=== PATIENT | female | born 1945 | race Two or more races ===

== ENCOUNTER 2017-03-10 12:41 | Emergency (ER) | payer OTHER ==
[~2017-03-10] VITALS: Ht 152.4 cm; Wt 74.4 kg
[~2017-03-10 12:41] MED LIST: ALEN70TA55 PO; AMLO5TAB2 PO; ASPI81TA27 PO; DULO30CA2 PO; GABA-497 PO; GLIP-115 PO; LEV100T OR; LOS50T PO; METF-370 PO; PANT40TA2 PO; [UNRECOGNIZED DRUG - CODE] PO
[2017-03-10 12:51] VITALS: BP 125/66
[2017-03-10 13:56] LABS: Basophils # (auto) 0.1 uL; Basophils % (auto) 0.7 % (0.0-2.0); Eosinophils # (auto) 0.4 uL; Eosinophils % (auto) 2.8 % (0.0-7.0); Hematocrit 39.6 % (36.0-46.0); Hemoglobin 13.4 g/dL (12.2-16.2); Lymphocytes # (auto) 3.8 uL; Lymphocytes % (auto) 27.8 % (10.0-50.0); Mean Corpuscular Hemoglobin 30.4 pg (28.0-32.0); Mean Corpuscular Hgb Conc. 33.9 g/dL (32.0-36.0); Mean Corpuscular Volume 89.7 fL (80.0-100.0); Mean Platelet Volume 7.9 fL (6.9-10.8); Monocytes # (auto) 0.9 uL; Monocytes % (auto) 6.3 % (0.0-12.0); Neutrophils # (auto) 8.5 uL; Neutrophils % (auto) 62.4 % (37.0-80.0); Nucleated Red Blood Cells % 0.1 %; Platelet Count (auto) 358 10^3/uL (140-450); Red Cell Distribution Width 14.1 % (11.8-14.3); White Blood Cell 13.6 10^3/uL (4.4-10.8)
[2017-03-10 14:09] LABS: Albumin 3.9 g/dL (3.4-5.0); Anion Gap 11 (5-15); BUN/Creatinine Ratio 14.7; Blood Urea Nitrogen 19 mg/dL (7-18); Calcium 8.6 mg/dL (8.5-10.1); Carbon Dioxide 24 mmol/L (21-32); Chloride 103 mmol/L (98-107); GFR African American 52 mL/min; GFR Non-African American 43 mL/min; Glucose 144 mg/dL (74-106); Potassium 4.3 mmol/L (3.5-5.1); Sodium 138 mmol/L (136-145)
[2017-03-10 14:14] LABS: Alkaline Phosphatase 76 U/L (45-117); Aspartate Aminotransferase 13 U/L (15-37); Bilirubin, Total 0.4 mg/dL (0.2-1.0); Total Protein 7.7 g/dL (6.4-8.2)
== END 2017-03-10 19:23 | disposition left against medical advice (07) ==
LOC: ER 12:41
DX: R07.89 Other chest pain (principal); Z53.21 Procedure and treatment not carried out due to patient leaving prior to being seen by health care provider
CPT/HCPCS: 36415; 71020; 80053; 84484; 85025; 93005

== ENCOUNTER 2017-11-11 07:32 | Inpatient (IN) | payer OTHER ==
[~2017-11-11] VITALS: Ht 149.9 cm; Wt 74.7 kg
[~2017-11-11 07:32] MED LIST changes: -ALEN70TA55 PO; -AMLO5TAB2 PO; -ASPI81TA27 PO; -DULO30CA2 PO; -GABA-497 PO; +GABA300C10 PO
[2017-11-11] MEDS ORDERED: LIDOCAINE 2%HCL (LOCAL ANESTH.) INJ 20ML MDV ONE (15:08)
[2017-11-11] MEDS ORDERED: IODIXANOL 320MG/ML 100ML BTL IV ONE (15:08)
[2017-11-11] MEDS ORDERED: methylPREDNISolone SOD SUCC 125 MG/2 ML VL ONE (15:16)
[2017-11-11] MEDS ORDERED: fentaNYL CITRATE 100 MCG/2 ML VL ONE (15:17)
[2017-11-11] MEDS ORDERED: ANGIOMAX 250 MG VIAL IV ONE (15:17)
[2017-11-11] MEDS ORDERED: MIDAZOLAM HCL 1MG/1ML-2 ML VIAL ONE (15:17)
[2017-11-11] MEDS ORDERED: diphenhdrAMINE HCL 50 MG/1 ML VL ONE (15:17)
[2017-11-11] MEDS ORDERED: FAMOTIDINE (10MG/ML) 2ML VL IV ONE (15:39)
[2017-11-11] MEDS ORDERED: EPINEPHrine HCL 1 MG/1 ML AMP ONE (15:43)
[2017-11-11] MEDS ORDERED: CLOPIDOGREL 300 MG TAB ONE (16:12)
[2017-11-11] MEDS ORDERED: ZOLPIDEM TARTRATE 5 MG TAB PO PRN ×2 (16:45→18:15)
[2017-11-11] MEDS ORDERED: ACETAMINOPHEN 500 MG TAB PO PRN (18:15)
[2017-11-11] MEDS ORDERED: LORazepam 0.5 MG TAB PO PRN (18:15)
[2017-11-11] MEDS ORDERED: HYDROcodone-ACET 5/325MG TAB PO PRN (18:15)
[2017-11-11] MEDS ORDERED: ONDANSETRON HCL 4 MG/2 ML VIAL IV PRN (18:15)
[2017-11-11] MEDS ORDERED: DEXTROSE (50%) 50ML SYRG IV PRN (18:30)
[2017-11-11 20:00] VITALS: BP 145/72
[2017-11-11] MEDS: METOPROLOL TARTRATE 50 MG TAB PO SCH (21:48)
[2017-11-11] MEDS: SODIUM CHLOR 0.9% PF (SALINE LOCK) 10ML VIAL/SYR IV SCH (21:49)
[2017-11-11] MEDS: HCTZ 25 MG TAB PO SCH (21:49)
[2017-11-11 22:00] VITALS: BP 145/72
[2017-11-11] MEDS ORDERED: ATORVASTATIN 20 MG TAB PO SCH (22:00)
[2017-11-11] MEDS ORDERED: InsuLIN REG 1unit/0.01ml Soln (100units/ml) SC SCH (22:00)
[2017-11-11] MEDS: ACCU-CHEK COMFORT CURVE STRIP VI SCH (22:00)
[2017-11-11] MEDS ORDERED: [UNRECOGNIZED DRUG - MIXTURE] PO SCH (22:00)
[2017-11-12] MEDS ORDERED: SODIUM CHLORIDE 0.9% 500 ML IV ONE (02:30)
[2017-11-12 05:00] VITALS: BP 145/64
[2017-11-12] MEDS: glipiZIDE 5 MG TAB PO SCH ×2 (06:26→06:52)
[2017-11-12] MEDS: SODIUM CHLOR 0.9% PF (SALINE LOCK) 10ML VIAL/SYR IV SCH ×2 (06:26→14:00)
[2017-11-12] MEDS: ACCU-CHEK COMFORT CURVE STRIP VI SCH ×2 (06:27→12:00)
[2017-11-12] MEDS: InsuLIN REG 1unit/0.01ml Soln (100units/ml) SC SCH ×2 (06:48→11:59)
[2017-11-12] MEDS ORDERED: LEVOTHYROXINE SODIUM 88 MCG TAB PO SCH (07:00)
[2017-11-12 09:00] VITALS: BP 145/74
[2017-11-12] MEDS: HCTZ 25 MG TAB PO SCH (09:44)
[2017-11-12] MEDS: METOPROLOL TARTRATE 50 MG TAB PO SCH (09:45)
[2017-11-12] MEDS ORDERED: PANTOPRAZOLE 40 MG TAB PO SCH (10:00)
[2017-11-12] MEDS ORDERED: GABAPENTIN 300 MG CAP PO SCH (10:00)
[2017-11-12] MEDS ORDERED: LOSARTAN POTASSIUM 50 MG TAB PO SCH (10:00)
[2017-11-12 13:00] VITALS: BP 151/77
[2017-11-18] MEDS ORDERED: [UNRECOGNIZED DRUG - CODE] (07:15)
[2017-11-18] MEDS ORDERED: CLOP75TA41 (07:15)
== END 2017-11-12 14:30 | disposition home or self-care (01) | DRG 254 ==
LOC: CATH 07:32 → WEST WING 18:24
PROVIDERS: ADMIT Internal Medicine; ATTEND Internal Medicine
PROC: 047C3DZ Dilation of Right Common Iliac Artery with Intraluminal Device, Percutaneous Approach (ICD-10-PCS; principal; 2017-11-11)
DX: E11.51 Type 2 diabetes mellitus with diabetic peripheral angiopathy without gangrene (principal); E66.9 Obesity, unspecified; J44.9 Chronic obstructive pulmonary disease, unspecified; N18.3 Chronic kidney disease, stage 3 (moderate); I12.9 Hypertensive chronic kidney disease with stage 1 through stage 4 chronic kidney disease, or unspecified chronic kidney disease; I70.201 Unspecified atherosclerosis of native arteries of extremities, right leg; E11.22 Type 2 diabetes mellitus with diabetic chronic kidney disease; Z79.02 Long term (current) use of antithrombotics/antiplatelets; Z79.82 Long term (current) use of aspirin; Z87.891 Personal history of nicotine dependence; Z68.33 Body mass index [BMI] 33.0-33.9, adult; Z91.041 Radiographic dye allergy status; Z91.013 Allergy to seafood; Z91.018 Allergy to other foods
CPT/HCPCS: 82962; 99152; J0171; J1815; J2250; J3490; Q9967

== ENCOUNTER 2018-01-12 17:09 | Inpatient (IN) | payer OTHER ==
[~2018-01-12] VITALS: Ht 152.4 cm; Wt 77.2 kg
[~2018-01-12 17:09] MED LIST changes: +ASPI-325; +CLOP75TA41
[2018-01-12 17:56] LABS: Basophils # (auto) 0.1 uL; Basophils % (auto) 0.6 % (0.0-2.0); Eosinophils # (auto) 0.6 uL; Eosinophils % (auto) 4.5 % (0.0-7.0); Hematocrit 38.2 % (36.0-46.0); Lymphocytes # (auto) 4.2 uL; Lymphocytes % (auto) 33.9 % (10.0-50.0); Mean Corpuscular Hemoglobin 29.9 pg (28.0-32.0); Monocytes # (auto) 0.9 uL; Monocytes % (auto) 6.9 % (0.0-12.0); Neutrophils # (auto) 6.7 uL; Neutrophils % (auto) 54.1 % (37.0-80.0); Nucleated Red Blood Cells % 0.1 %; Platelet Count (auto) 328 10^3/uL (140-450); Red Blood Cells 4.34 10^6/uL (4.0-5.20); Red Cell Distribution Width 14.4 % (11.8-14.3); White Blood Cell 12.5 10^3/uL (4.4-10.8)
[2018-01-12 18:19] LABS: Albumin 4.1 g/dL (3.4-5.0); BUN/Creatinine Ratio 12.9; Bilirubin, Total 0.3 mg/dL (0.2-1.0); Calcium 9.4 mg/dL (8.5-10.1); Potassium 3.9 mmol/L (3.5-5.1); Total Protein 8.2 g/dL (6.4-8.2)
[2018-01-12 18:43] LABS: INR 0.88 (0.9-1.15); Partial Thromboplastin Time 28.3 sec (23.78-33.04); Prothrombin Time 9.5 sec (9.27-12.13)
[2018-01-12] MEDS ORDERED: cefTRIAXone 1GM/10ml IVPUSH 10 ML IV ONE (20:15)
[2018-01-12 21:00] VITALS: BP 167/74
[2018-01-12] MEDS ORDERED: TEMAZEPAM 15 MG CAP PO PRN (21:00)
[2018-01-12] MEDS ORDERED: HYDROcodone-ACET 5/325MG TAB PO PRN (21:00)
[2018-01-12] MEDS ORDERED: ACETAMINOPHEN 325 MG TAB PO PRN (21:00)
[2018-01-12] MEDS ORDERED: DOCUSATE SOD 100 MG CAP PO PRN (21:00)
[2018-01-12] MEDS ORDERED: ONDANSETRON HCL 4 MG/2 ML VIAL IV PRN (21:00)
[2018-01-12] MEDS ORDERED: CINN500C7 PO (22:42)
[2018-01-12] MEDS ORDERED: POTA1080 PO (22:42)
[2018-01-12] MEDS ORDERED: OMEGCAP2 PO (22:42)
[2018-01-12] MEDS ORDERED: MULTCAP45 PO (22:42)
[2018-01-12] MEDS: CLINDAMYCIN 600MG IV 50 ML IV SCH (23:29)
[2018-01-13 04:56] VITALS: BP 161/73
[2018-01-13] MEDS: LEVOTHYROXINE SODIUM 88 MCG TAB PO SCH (06:14)
[2018-01-13] MEDS: CLINDAMYCIN 600MG IV 50 ML IV SCH ×3 (06:14→21:16)
[2018-01-13 07:58] LABS: Basophils # (auto) 0.1 uL; Basophils % (auto) 0.6 % (0.0-2.0); Eosinophils # (auto) 0.3 uL; Eosinophils % (auto) 2.8 % (0.0-7.0); Hematocrit 37.9 % (36.0-46.0); Hemoglobin 12.3 g/dL (12.2-16.2); Lymphocytes # (auto) 3.2 uL; Lymphocytes % (auto) 28.2 % (10.0-50.0); Mean Corpuscular Hemoglobin 29.2 pg (28.0-32.0); Mean Corpuscular Hgb Conc. 32.5 g/dL (32.0-36.0); Monocytes # (auto) 0.7 uL; Monocytes % (auto) 6.3 % (0.0-12.0); Neutrophils # (auto) 7.1 uL; Neutrophils % (auto) 62.1 % (37.0-80.0); Nucleated Red Blood Cells % 0.1 %; Platelet Count (auto) 288 10^3/uL (140-450); Red Blood Cells 4.22 10^6/uL (4.0-5.20); Red Cell Distribution Width 14.5 % (11.8-14.3); White Blood Cell 11.4 10^3/uL (4.4-10.8)
[2018-01-13 07:59] LABS: Albumin 3.5 g/dL (3.4-5.0); BUN/Creatinine Ratio 11.4; Bilirubin, Total 0.2 mg/dL (0.2-1.0); Calcium 9.1 mg/dL (8.5-10.1); Potassium 4.3 mmol/L (3.5-5.1); Total Protein 7.3 g/dL (6.4-8.2)
[2018-01-13 08:45] VITALS: BP 150/65
[2018-01-13] MEDS: cefTRIAXone 1GM/10ml IVPUSH 10 ML IV SCH (09:42)
[2018-01-13] MEDS: ENOXAPARIN SOD 40 MG/0.4 ML SYRINGE SC SCH (09:42)
[2018-01-13] MEDS: GABAPENTIN 300 MG CAP PO SCH (09:43)
[2018-01-13] MEDS: LOSARTAN POTASSIUM 50 MG TAB PO SCH (09:43)
[2018-01-13] MEDS: PANTOPRAZOLE 40 MG TAB PO SCH (09:43)
[2018-01-13] MEDS: CLOPIDOGREL BISULFATE 75 MG TAB PO SCH (09:43)
[2018-01-13 12:59] VITALS: BP 143/67
[2018-01-13 17:21] VITALS: BP 154/76
[2018-01-13 22:30] VITALS: BP 150/79
[2018-01-14 05:31] VITALS: BP 147/67
[2018-01-14] MEDS: CLINDAMYCIN 600MG IV 50 ML IV SCH ×3 (06:12→21:09)
[2018-01-14] MEDS: LEVOTHYROXINE SODIUM 88 MCG TAB PO SCH (06:12)
[2018-01-14 07:00] LABS: Basophils # (auto) 0.1 uL; Basophils % (auto) 0.9 % (0.0-2.0); Eosinophils # (auto) 0.3 uL; Eosinophils % (auto) 2.8 % (0.0-7.0); Hemoglobin 13.4 g/dL (12.2-16.2); Lymphocytes # (auto) 3.5 uL; Lymphocytes % (auto) 29.3 % (10.0-50.0); Mean Corpuscular Hemoglobin 29.6 pg (28.0-32.0); Mean Corpuscular Hgb Conc. 33.5 g/dL (32.0-36.0); Mean Corpuscular Volume 88.3 fL (80.0-100.0); Monocytes # (auto) 0.7 uL; Monocytes % (auto) 6.2 % (0.0-12.0); Neutrophils # (auto) 7.2 uL; Neutrophils % (auto) 60.8 % (37.0-80.0); Nucleated Red Blood Cells % 0.1 %; Platelet Count (auto) 336 10^3/uL (140-450); Red Blood Cells 4.53 10^6/uL (4.0-5.20); Red Cell Distribution Width 14.7 % (11.8-14.3); White Blood Cell 11.9 10^3/uL (4.4-10.8)
[2018-01-14 08:44] VITALS: BP 159/67
[2018-01-14] MEDS: GABAPENTIN 300 MG CAP PO SCH (09:39)
[2018-01-14] MEDS: CLOPIDOGREL BISULFATE 75 MG TAB PO SCH (09:39)
[2018-01-14] MEDS: cefTRIAXone 1GM/10ml IVPUSH 10 ML IV SCH (09:39)
[2018-01-14] MEDS: LOSARTAN POTASSIUM 50 MG TAB PO SCH (09:40)
[2018-01-14] MEDS: PANTOPRAZOLE 40 MG TAB PO SCH (09:40)
[2018-01-14] MEDS: ENOXAPARIN SOD 40 MG/0.4 ML SYRINGE SC SCH (09:41)
[2018-01-14 13:00] VITALS: BP 160/82
[2018-01-14 17:13] VITALS: BP 157/68
[2018-01-14 21:46] VITALS: BP 149/75
[2018-01-15 05:00] VITALS: BP_SYST 109; BP_SYST 140; BP_DIAS 59; BP_DIAS 73
[2018-01-15] MEDS: CLINDAMYCIN 600MG IV 50 ML IV SCH ×3 (05:24→22:34)
[2018-01-15] MEDS: LEVOTHYROXINE SODIUM 88 MCG TAB PO SCH (06:22)
[2018-01-15 09:00] VITALS: BP 152/76
[2018-01-15] MEDS: cefTRIAXone 1GM/10ml IVPUSH 10 ML IV SCH (09:00)
[2018-01-15] MEDS: ENOXAPARIN SOD 40 MG/0.4 ML SYRINGE SC SCH (10:00)
[2018-01-15] MEDS: LOSARTAN POTASSIUM 50 MG TAB PO SCH (10:26)
[2018-01-15] MEDS: GABAPENTIN 300 MG CAP PO SCH (10:27)
[2018-01-15] MEDS: PANTOPRAZOLE 40 MG TAB PO SCH (10:27)
[2018-01-15] MEDS: CLOPIDOGREL BISULFATE 75 MG TAB PO SCH (10:28)
[2018-01-15] MEDS ORDERED: IODIXANOL 320MG/ML 100ML BTL IV ONE (12:11)
[2018-01-15] MEDS ORDERED: LIDOCAINE 2% (LOCAL ANESTH.) PF 5ml SDV ONE (12:11)
[2018-01-15 13:00] VITALS: BP 139/80
[2018-01-15] MEDS ORDERED: methylPREDNISolone SOD SUCC 125 MG/2 ML VL ONE (13:33)
[2018-01-15] MEDS ORDERED: MIDAZOLAM HCL 1MG/1ML-2 ML VIAL ONE (13:34)
[2018-01-15] MEDS ORDERED: fentaNYL CITRATE 100 MCG/2 ML VL ONE (13:34)
[2018-01-15] MEDS ORDERED: diphenhdrAMINE HCL 50 MG/1 ML VL ONE (13:34)
[2018-01-15] MEDS ORDERED: ANGIOMAX 250 MG VIAL IV ONE (13:34)
[2018-01-15] MEDS ORDERED: SODIUM CHL 0.9% 0 ML ONE (13:35)
[2018-01-15] MEDS ORDERED: FAMOTIDINE (10MG/ML) 2ML VL IV ONE (13:38)
[2018-01-15] MEDS ORDERED: DEXTROSE (50%) 50ML SYRG IV PRN (14:30)
[2018-01-15 17:00] VITALS: BP 125/81
[2018-01-15] MEDS: InsuLIN REG 1unit/0.01ml Soln (100units/ml) SC SCH ×2 (17:00→22:00)
[2018-01-15] MEDS: ACCU-CHEK COMFORT CURVE STRIP VI SCH ×2 (17:00→22:00)
[2018-01-15 22:00] VITALS: BP 151/78
[2018-01-16 04:41] VITALS: BP 156/74
[2018-01-16] MEDS: InsuLIN REG 1unit/0.01ml Soln (100units/ml) SC SCH (06:49)
[2018-01-16] MEDS: LEVOTHYROXINE SODIUM 88 MCG TAB PO SCH (06:49)
[2018-01-16] MEDS: CLINDAMYCIN 600MG IV 50 ML IV SCH (06:49)
[2018-01-16] MEDS: ACCU-CHEK COMFORT CURVE STRIP VI SCH (07:09)
[2018-01-16 09:00] VITALS: BP 164/77
[2018-01-16] MEDS: cefTRIAXone 1GM/10ml IVPUSH 10 ML IV SCH (09:00)
[2018-01-16] MEDS: GABAPENTIN 300 MG CAP PO SCH (10:00)
[2018-01-16] MEDS: CLOPIDOGREL BISULFATE 75 MG TAB PO SCH (10:00)
[2018-01-16] MEDS: LOSARTAN POTASSIUM 50 MG TAB PO SCH (10:00)
[2018-01-16] MEDS: PANTOPRAZOLE 40 MG TAB PO SCH (10:00)
[2018-01-16] MEDS: ENOXAPARIN SOD 40 MG/0.4 ML SYRINGE SC SCH (10:00)
[2018-01-16 10:56] VITALS: BP 152/76
== END 2018-01-16 12:00 | disposition home or self-care (01) | DRG 300 ==
LOC: ER 17:13 → OVERFLOW 17:14 → WEST WING 22:40
PROVIDERS: ADMIT Nurse Practitioner; ATTEND Family Medicine
PROC: B41G1ZZ Fluoroscopy of Left Lower Extremity Arteries using Low Osmolar Contrast (ICD-10-PCS; principal; 2018-01-15)
PROC: B41F1ZZ Fluoroscopy of Right Lower Extremity Arteries using Low Osmolar Contrast (ICD-10-PCS; 2018-01-15)
DX: I70.201 Unspecified atherosclerosis of native arteries of extremities, right leg (principal); L03.115 Cellulitis of right lower limb; E66.9 Obesity, unspecified; E11.51 Type 2 diabetes mellitus with diabetic peripheral angiopathy without gangrene; I10 Essential (primary) hypertension; K21.9 Gastro-esophageal reflux disease without esophagitis; Z82.49 Family history of ischemic heart disease and other diseases of the circulatory system; Z83.3 Family history of diabetes mellitus; Z87.891 Personal history of nicotine dependence; Z88.8 Allergy status to other drugs, medicaments and biological substances; Z91.013 Allergy to seafood; Z91.041 Radiographic dye allergy status; Z79.899 Other long term (current) drug therapy
CPT/HCPCS: 36415; 71045; 75716; 80053; 82962; 83605; 85025; 85610; 85730; 86850; 86900; 86901; 87040; 87081; 93926; 93970; 94761; 96372; 96374; 96376; 99152; A6257; J0696; J1815; J2001; J2250; J3490; Q9967

== ENCOUNTER 2018-01-18 21:16 | Emergency (ER) | payer OTHER ==
[~2018-01-18] VITALS: Ht 152.4 cm; Wt 73.9 kg
[~2018-01-18 21:16] MED LIST changes: +CINN500C7 PO; +MULTCAP45 PO; +OMEGCAP2 PO; +POTA1080 PO
[2018-01-18 21:36] VITALS: BP 173/60
== END 2018-01-19 04:11 | disposition home or self-care (01) ==
LOC: ER 21:17
DX: K21.9 Gastro-esophageal reflux disease without esophagitis (principal); T50.905A Adverse effect of unspecified drugs, medicaments and biological substances, initial encounter; Y92.89 Other specified places as the place of occurrence of the external cause; I10 Essential (primary) hypertension; E11.9 Type 2 diabetes mellitus without complications; Z91.013 Allergy to seafood; Z91.041 Radiographic dye allergy status
CPT/HCPCS: 93005

== ENCOUNTER → 2018-03-05 | Outpatient (CLI) | payer OTHER ==
[2018-03-05 08:50] LABS: Basophils # (auto) 0.1 uL; Basophils % (auto) 0.5 % (0.0-2.0); Eosinophils # (auto) 0.3 uL; Eosinophils % (auto) 2.6 % (0.0-7.0); Hematocrit 39.3 % (36.0-46.0); Lymphocytes # (auto) 3.4 uL; Lymphocytes % (auto) 33.7 % (10.0-50.0); Mean Corpuscular Hemoglobin 29.5 pg (28.0-32.0); Mean Corpuscular Hgb Conc. 33.2 g/dL (32.0-36.0); Mean Corpuscular Volume 88.8 fL (80.0-100.0); Monocytes # (auto) 0.6 uL; Monocytes % (auto) 6.3 % (0.0-12.0); Neutrophils # (auto) 5.7 uL; Neutrophils % (auto) 56.9 % (37.0-80.0); Platelet Count (auto) 302 10^3/uL (140-450); Red Blood Cells 4.43 10^6/uL (4.0-5.20); Red Cell Distribution Width 14.8 % (11.8-14.3)
[2018-03-05 08:53] LABS: Urine Bacteria FEW /hpf (None Seen); Urine Blood Negative /uL (Negative); Urine Specific Gravity 1.011 (1.001-1.035); Urine WBC 10 /hpf (0 - 5)
[2018-03-05 09:25] LABS: Alanine Aminotransferase 26 U/L (13-56); Albumin 3.5 g/dL (3.4-5.0); Alkaline Phosphatase 76 U/L (45-117); Aspartate Aminotransferase 14 U/L (15-37); BUN/Creatinine Ratio 17.3; Bilirubin, Total 0.6 mg/dL (0.2-1.0); Blood Urea Nitrogen 22 mg/dL (7-18); Calcium 9.5 mg/dL (8.5-10.1); Carbon Dioxide 27 mmol/L (21-32); Cholesterol 120 mg/dL (< 200); GFR African American 53 mL/min; GFR Non-African American 44 mL/min; HDL Cholesterol 38 mg/dL (40-59); LDL Cholesterol 64 mg/dL (< 100); Phosphorus 3.4 mg/dL (2.5-4.90); Total Protein 7.6 g/dL (6.4-8.2); Triglycerides 205 mg/dL (< 150); Uric Acid 7.8 mg/dL (2.6-6.0)
[2018-03-05 09:31] LABS: Anion Gap 6 (5-15); Chloride 100 mmol/L (98-107); Glucose 149 mg/dL (74-106); Potassium 5.1 mmol/L (3.5-5.1); Sodium 133 mmol/L (136-145)
[2018-03-08 13:33] LABS: Hepatitis B Surface Antibody Negative
[2018-03-08 13:51] LABS: Hepatitis A Total Antibody Negative
[2018-03-08 14:34] LABS: Hepatitis B Core Total AB Negative; Hepatitis B Surface Antigen Negative (Negative); Hepatitis C Antibody Negative (Negative)
== END | disposition home or self-care (01) ==
LOC: LAB 08:02
PROVIDERS: ATTEND Physician Assistant
DX: E78.5 Hyperlipidemia, unspecified (principal); E03.9 Hypothyroidism, unspecified; I12.9 Hypertensive chronic kidney disease with stage 1 through stage 4 chronic kidney disease, or unspecified chronic kidney disease; E11.22 Type 2 diabetes mellitus with diabetic chronic kidney disease; N18.3 Chronic kidney disease, stage 3 (moderate); E11.40 Type 2 diabetes mellitus with diabetic neuropathy, unspecified; I73.9 Peripheral vascular disease, unspecified
CPT/HCPCS: 36415; 80053; 80061; 80069; 81001; 82570; 83036; 84156; 84550; 85025; 86038; 86256; 86704; 86706; 86708; 86803; 87340

== ENCOUNTER → 2020-10-17 | Outpatient (CLI) | payer OTHER ==
[~2020-10-17] MED LIST changes: -CLOP75TA41; +CLOP75TA70; -GLIP-115 PO; +GLIP5TAB12 PO
== END | disposition home or self-care (01) ==
LOC: XYW 09:30
PROVIDERS: ATTEND Internal Medicine
DX: I08.2 Rheumatic disorders of both aortic and tricuspid valves (principal); I50.30 Unspecified diastolic (congestive) heart failure
CPT/HCPCS: 93306

== ENCOUNTER → 2020-11-08 | Outpatient (CLI) | payer OTHER ==
[2020-11-08 08:14] LABS: Basophils # (auto) 0.1 10 ^3/uL (0-0.2); Basophils % (auto) 0.7 % (0.0-2.0); Eosinophils # (auto) 0.3 10 ^3/uL (0-0.8); Eosinophils % (auto) 2.7 % (0.0-7.0); Hemoglobin 11.8 g/dL (12.2-16.2); Lymphocytes # (auto) 5.2 10 ^3/uL (0.4-5.4); Mean Corpuscular Hemoglobin 30.8 pg (28.0-32.0); Mean Corpuscular Hgb Conc. 33.9 g/dL (32.0-36.0); Mean Corpuscular Volume 90.9 fL (80.0-100.0); Monocytes # (auto) 0.6 10 ^3/uL (0-1.3); Monocytes % (auto) 5.4 % (0.0-12.0); Neutrophils # (auto) 4.9 10 ^3/uL (1.6-8.6); Neutrophils % (auto) 44.2 % (37.0-80.0); Nucleated Red Blood Cells % 0.1 %; Platelet Count (auto) 269 10^3/uL (140-450); Red Blood Cells 3.85 10^6/uL (4.0-5.20); White Blood Cell 11.1 10^3/uL (4.4-10.8)
[2020-11-08 08:18] LABS: Urine Bacteria NONE SEEN /hpf (None Seen); Urine Blood Negative /uL (Negative); Urine WBC 112 /hpf (0 - 5)
[2020-11-08 08:50] LABS: Potassium 4.4 mmol/L (3.5-5.1)
[2020-11-08 09:00] LABS: Albumin 3.4 g/dL (3.4-5.0); BUN/Creatinine Ratio 17.5; Bilirubin, Total 0.4 mg/dL (0.2-1.0); Total Protein 6.9 g/dL (6.4-8.2)
[2020-11-08 09:12] LABS: Free T4 (Free Thyroxine) 1.23 ng/dL (0.89-1.76)
[2020-11-08 09:13] LABS: T3 Total 0.84 ng/mL (0.60-1.81)
== END | disposition home or self-care (01) ==
LOC: LAB 07:11
PROVIDERS: ATTEND Internal Medicine
DX: E11.22 Type 2 diabetes mellitus with diabetic chronic kidney disease (principal); N18.30 Chronic kidney disease, stage 3 unspecified; E03.9 Hypothyroidism, unspecified
CPT/HCPCS: 36415; 80053; 80061; 81001; 82043; 82306; 82607; 83036; 84439; 84443; 84480; 85025

== ENCOUNTER → 2020-11-15 | Outpatient (CLI) | payer OTHER | END | disposition home or self-care (01) | LOC: LAB 14:45 | PROVIDERS: ATTEND Internal Medicine | DX: E11.22 Type 2 diabetes mellitus with diabetic chronic kidney disease (principal); N18.30 Chronic kidney disease, stage 3 unspecified | CPT/HCPCS: 82043 ==

== ENCOUNTER 2021-05-14 09:07 | Inpatient (IN) | payer OTHER ==
[~2021-05-14] VITALS: Ht 152.4 cm; Wt 63.5 kg
[~2021-05-14 09:07] MED LIST changes: -ASPI-325; +ASPI-325 PO; -CLOP75TA70; +CLOP75TA70 PO; -LEV100T OR; +LEV100T PO
[2021-05-14 10:40] LABS: Basophils # (auto) 0.1 10 ^3/uL (0-0.2); Basophils % (auto) 0.4 % (0.0-2.0); Eosinophils # (auto) 0 10 ^3/uL (0-0.8); Eosinophils % (auto) 0.1 % (0.0-7.0); Hematocrit 37.6 % (36.0-46.0); Hemoglobin 12.9 g/dL (12.2-16.2); Lymphocytes # (auto) 4.3 10 ^3/uL (0.4-5.4); Lymphocytes % (auto) 30.1 % (10.0-50.0); Mean Corpuscular Hemoglobin 30.4 pg (28.0-32.0); Mean Corpuscular Hgb Conc. 34.4 g/dL (32.0-36.0); Mean Corpuscular Volume 88.4 fL (80.0-100.0); Monocytes # (auto) 1.3 10 ^3/uL (0-1.3); Monocytes % (auto) 9.4 % (0.0-12.0); Neutrophils # (auto) 8.5 10 ^3/uL (1.6-8.6); Red Blood Cells 4.26 10^6/uL (4.0-5.20); Red Cell Distribution Width 13.9 % (11.8-14.3); White Blood Cell 14.2 10^3/uL (4.4-10.8)
[2021-05-14 11:09] LABS: Albumin 3.2 g/dL (3.4-5.0); Calcium 9.1 mg/dL (8.5-10.1); Potassium 5.2 mmol/L (3.5-5.1)
[2021-05-14 11:14] LABS: BUN/Creatinine Ratio 23.5; Bilirubin, Total 0.5 mg/dL (0.2-1.0); Total Protein 8.1 g/dL (6.4-8.2)
[2021-05-14] MEDS ORDERED: DEXTROSE 50% SYRINGE 50 ML IV ONE (11:40)
[2021-05-14] MEDS ORDERED: DEXTROSE (50%) 50ML SYRG IV ONE ×2 (12:00→13:45)
[2021-05-14] MEDS ORDERED: CALCIUM CHL 100MG/ML 1,000 MG in D5W 5% 100 ML IV ONE (13:45)
[2021-05-14] MEDS ORDERED: ALBUTEROL SULF 2.5 MG/0.5ML(0.5%) NEB SOLN NEB ONE (13:45)
[2021-05-14] MEDS ORDERED: NITROGLYCERIN 0.4 MG SL TAB SL PRN ×2 (13:45→19:30)
[2021-05-14] MEDS ORDERED: SODIUM ZIRCONIUM CYCL 10 GM PAK PO ONE (13:45)
[2021-05-14] MEDS ORDERED: D5W/LACTATED RINGERS 1,000 ML IV ONE (13:45)
[2021-05-14] MEDS ORDERED: MORPHINE SULFATE INJECTION 2 MG/ML SYRG IV PRN ×3 (13:45→19:30)
[2021-05-14] MEDS ORDERED: FUROSEMIDE 40 MG/4 ML VIAL IV ONE (13:45)
[2021-05-14] MEDS ORDERED: PSYL0.524 PO (15:43)
[2021-05-14] MEDS ORDERED: HYDR50TA15 PO (15:43)
[2021-05-14] MEDS ORDERED: AML5T PO (15:43)
[2021-05-14] MEDS ORDERED: LOSA-39 PO (15:46)
[2021-05-14] MEDS ORDERED: GABA-339 PO (15:46)
[2021-05-14] MEDS ORDERED: HYDR25TA5 PO (15:47)
[2021-05-14] MEDS ORDERED: ALEN70TA74 PO (15:47)
[2021-05-14] MEDS ORDERED: ASPI1TAB19 PO (15:47)
[2021-05-14] MEDS ORDERED: ATOR20TA50 PO (15:48)
[2021-05-14] MEDS ORDERED: MET50T PO (15:50)
[2021-05-14] MEDS ORDERED: POTA99TA3 PO (15:50)
[2021-05-14] MEDS ORDERED: CEPH500C PO (15:51)
[2021-05-14] MEDS ORDERED: ALUM & MAG HYDROX-SIMETH LIQ(MAALOX) 30 ML PO PRN (19:30)
[2021-05-14] MEDS ORDERED: REMDESIVIR PER PHARMACY 0 ML IV SCH (19:30)
[2021-05-14] MEDS ORDERED: D5W/SOD CHLO 0.9% 1,000 ML IV SCH (19:30)
[2021-05-14] MEDS ORDERED: DOCUSATE SOD 100 MG CAP PO PRN (19:30)
[2021-05-14] MEDS ORDERED: HYDROcodone-ACET 5/325MG TAB PO PRN (19:30)
[2021-05-14] MEDS ORDERED: METOCLOPRAMIDE HCL 5MG/ml INJ 2ml VIAL IV PRN (19:30)
[2021-05-14] MEDS ORDERED: PENTOXIFYLLINE 400 MG ER TAB PO ONE (19:30)
[2021-05-14] MEDS ORDERED: ALBUMIN 25% 100 ML IV ONE (19:30)
[2021-05-14] MEDS ORDERED: FAMOTIDINE (10MG/ML) 2ML VL IV ONE (19:30)
[2021-05-14] MEDS ORDERED: DEXTROSE (50%) 50ML SYRG IV PRN (19:30)
[2021-05-14] MEDS ORDERED: ACETAMINOPHEN 500 MG TAB PO PRN (19:30)
[2021-05-14] MEDS ORDERED: ASCORBIC ACID 1,000 MG TAB PO ONE (20:00)
[2021-05-14] MEDS ORDERED: CHOLECALCIFEROL (VITD3) 2,000 UNIT CAP/TAB PO ONE (20:00)
[2021-05-14 21:06] LABS: Cholesterol 117 mg/dL (< 200)
[2021-05-14 21:09] LABS: HDL Cholesterol 32 mg/dL (40-59); LDL Cholesterol 66 mg/dL (< 100); Triglycerides 170 mg/dL (< 150)
[2021-05-14 21:22] LABS: Thyroid Stimulating Hormone 0.42 uIU/mL (0.358-3.74)
[2021-05-14] MEDS: DexAMETHasone SOD PHOS 10MG/1ML VIAL INJ IV SCH (21:24)
[2021-05-14] MEDS: ENOXAPARIN SOD 40 MG/0.4 ML SYRINGE SC SCH (21:24)
[2021-05-14] MEDS: FAMOTIDINE (10MG/ML) 2ML VL IV SCH (21:25)
[2021-05-14] MEDS: DOXYCYCLINE 100MG/250ML 250 ML IV SCH (22:59)
[2021-05-14] MEDS: ATORVASTATIN 20 MG TAB PO SCH (23:00)
[2021-05-14] MEDS: ISOSORBIDE MONONITRATE 20 MG TAB PO SCH (23:00)
[2021-05-14] MEDS: PENTOXIFYLLINE 400 MG ER TAB PO SCH (23:01)
[2021-05-14] MEDS: ACCU-CHEK COMFORT CURVE STRIP VI SCH (23:01)
[2021-05-14] MEDS: InsuLIN REG 1unit/0.01ml Soln (100units/ml) SC SCH (23:01)
[2021-05-14 23:13] LABS: Urine Bacteria NONE SEEN /hpf (None Seen); Urine Blood Negative /uL (Negative); Urine Specific Gravity 1.008 (1.001-1.035); Urine WBC 2 /hpf (0 - 5)
[2021-05-14 23:24] LABS: Alcohol, Urine < 3.0 mg/dL (0-10); Amphetamine Screen, Urine NEGATIVE (NEGATIVE); Barbiturate Scree,Urine NEGATIVE (NEGATIVE); Benzodiazephine Screen, Urine NEGATIVE (NEGATIVE); Cannabinoid Screen, Urine NEGATIVE (NEGATIVE); Cocaine Screen, Urine NEGATIVE (NEGATIVE); Opiate Scree,Urine NEGATIVE (NEGATIVE); Phencyclidine Screen, Urine NEGATIVE (NEGATIVE)
[2021-05-15 00:22] VITALS: BP 134/61
[2021-05-15 01:06] LABS: BUN/Creatinine Ratio 26.2; Bilirubin, Total 0.3 mg/dL (0.2-1.0); Calcium 8.8 mg/dL (8.5-10.1); Potassium 4.3 mmol/L (3.5-5.1); Total Protein 7.4 g/dL (6.4-8.2)
[2021-05-15 01:07] LABS: Albumin 3.5 g/dL (3.4-5.0); Magnesium 2.9 mg/dL (1.6-2.6)
[2021-05-15 01:48] LABS: CRP High Sensitivity 9.55 mg/dL (< 0.3)
[2021-05-15 05:00] VITALS: BP 120/69
[2021-05-15] MEDS ORDERED: FUROSEMIDE 20 MG/2 ML VIAL IV SCH (06:00)
[2021-05-15] MEDS: LEVOTHYROXINE SODIUM 100 MCG TAB PO SCH (06:38)
[2021-05-15] MEDS: ACCU-CHEK COMFORT CURVE STRIP VI SCH ×4 (06:54→20:25)
[2021-05-15] MEDS: InsuLIN REG 1unit/0.01ml Soln (100units/ml) SC SCH ×4 (06:57→20:30)
[2021-05-15 08:10] LABS: Basophils # (auto) 0 10 ^3/uL (0-0.2); Basophils % (auto) 0.1 % (0.0-2.0); Eosinophils # (auto) 0 10 ^3/uL (0-0.8); Hematocrit 32.4 % (36.0-46.0); Hemoglobin 10.7 g/dL (12.2-16.2); Lymphocytes % (auto) 43.6 % (10.0-50.0); Mean Corpuscular Hemoglobin 29.4 pg (28.0-32.0); Mean Corpuscular Hgb Conc. 32.9 g/dL (32.0-36.0); Mean Corpuscular Volume 89.5 fL (80.0-100.0); Monocytes # (auto) 0.3 10 ^3/uL (0-1.3); Monocytes % (auto) 2.9 % (0.0-12.0); Neutrophils # (auto) 6.1 10 ^3/uL (1.6-8.6); Neutrophils % (auto) 53.4 % (37.0-80.0); Nucleated Red Blood Cells % 0.1 %; Red Blood Cells 3.62 10^6/uL (4.0-5.20); Red Cell Distribution Width 14.1 % (11.8-14.3); White Blood Cell 11.5 10^3/uL (4.4-10.8)
[2021-05-15 08:20] LABS: Albumin 3.1 g/dL (3.4-5.0); Calcium 8.1 mg/dL (8.5-10.1); Magnesium 3.2 mg/dL (1.6-2.6); Potassium 4.3 mmol/L (3.5-5.1)
[2021-05-15 08:24] LABS: BUN/Creatinine Ratio 24.9; Bilirubin, Total 0.4 mg/dL (0.2-1.0); Phosphorus 4.1 mg/dL (2.5-4.90); Total Protein 6.8 g/dL (6.4-8.2)
[2021-05-15 09:00] VITALS: BP 128/63
[2021-05-15] MEDS: IVERMECTIN 3 MG TAB PO SCH (09:18)
[2021-05-15] MEDS: CHOLECALCIFEROL (VITD3) 2,000 UNIT CAP/TAB PO SCH (09:18)
[2021-05-15] MEDS: ASPirin 81 mg TAB PO SCH (09:18)
[2021-05-15] MEDS: ISOSORBIDE MONONITRATE 20 MG TAB PO SCH ×2 (09:19→22:21)
[2021-05-15] MEDS: PENTOXIFYLLINE 400 MG ER TAB PO SCH ×2 (09:19→22:21)
[2021-05-15] MEDS: DexAMETHasone SOD PHOS 10MG/1ML VIAL INJ IV SCH (09:20)
[2021-05-15] MEDS: FAMOTIDINE (10MG/ML) 2ML VL IV SCH (09:20)
[2021-05-15] MEDS: CLOPIDOGREL BISULFATE 75 MG TAB PO SCH (09:20)
[2021-05-15] MEDS: CALCIUM W/VIT D (600MG/400IU) TAB PO SCH ×2 (09:20→18:01)
[2021-05-15] MEDS: ASCORBIC ACID 1,000 MG TAB PO SCH (09:21)
[2021-05-15] MEDS: METOPROLOL SUCCINATE XL 50 MG TAB PO SCH (09:21)
[2021-05-15] MEDS: ENOXAPARIN SOD 40 MG/0.4 ML SYRINGE SC SCH (09:22)
[2021-05-15] MEDS: DOXYCYCLINE 100MG/250ML 250 ML IV SCH ×2 (09:22→22:21)
[2021-05-15] MEDS: BUDESONIDE (INHALATION) 180 MCG IH IN SCH ×2 (11:34→22:44)
[2021-05-15] MEDS: ALBUTEROL SULF HFA 90MCG INH 200DOSE IN PRN ×2 (11:34→22:44)
[2021-05-15 13:00] VITALS: BP 148/76
[2021-05-15] MEDS ORDERED: DEXTROSE (50%) 50ML SYRG IV PRN (13:15)
[2021-05-15] MEDS ORDERED: INSULIN 70/30 1unit/0.01ml Susp (100units/ml) SC ONE (13:15)
[2021-05-15 17:00] VITALS: BP 135/69
[2021-05-15] MEDS: INSULIN 70/30 1unit/0.01ml Susp (100units/ml) SC SCH (18:01)
[2021-05-15 22:00] VITALS: BP 158/73
[2021-05-15] MEDS: ATORVASTATIN 20 MG TAB PO SCH (22:27)
[2021-05-16] MEDS: InsuLIN REG 1unit/0.01ml Soln (100units/ml) SC SCH ×6 (04:00→22:00)
[2021-05-16] MEDS: ACCU-CHEK COMFORT CURVE STRIP VI SCH ×6 (04:25→22:00)
[2021-05-16 05:00] VITALS: BP 153/64
[2021-05-16] MEDS: LEVOTHYROXINE SODIUM 100 MCG TAB PO SCH (06:30)
[2021-05-16 07:29] LABS: Potassium 4.2 mmol/L (3.5-5.1)
[2021-05-16 07:39] LABS: BUN/Creatinine Ratio 30.1; Calcium 8.4 mg/dL (8.5-10.1)
[2021-05-16] MEDS: CALCIUM W/VIT D (600MG/400IU) TAB PO SCH ×2 (08:08→18:21)
[2021-05-16] MEDS: DexAMETHasone SOD PHOS 10MG/1ML VIAL INJ IV SCH (08:09)
[2021-05-16] MEDS: DOXYCYCLINE 100MG/250ML 250 ML IV SCH ×3 (08:10→23:25)
[2021-05-16] MEDS: CLOPIDOGREL BISULFATE 75 MG TAB PO SCH (08:10)
[2021-05-16] MEDS: IVERMECTIN 3 MG TAB PO SCH (08:10)
[2021-05-16] MEDS: ASPirin 81 mg TAB PO SCH (08:10)
[2021-05-16] MEDS: INSULIN 70/30 1unit/0.01ml Susp (100units/ml) SC SCH ×2 (08:10→18:26)
[2021-05-16] MEDS: ASCORBIC ACID 1,000 MG TAB PO SCH (08:11)
[2021-05-16] MEDS: CHOLECALCIFEROL (VITD3) 2,000 UNIT CAP/TAB PO SCH (08:11)
[2021-05-16] MEDS: METOPROLOL SUCCINATE XL 50 MG TAB PO SCH (08:11)
[2021-05-16] MEDS: ENOXAPARIN SOD 40 MG/0.4 ML SYRINGE SC SCH (08:12)
[2021-05-16 09:00] VITALS: BP 141/67
[2021-05-16] MEDS ORDERED: DEXTROSE (50%) 50ML SYRG IV PRN (09:15)
[2021-05-16] MEDS: ISOSORBIDE MONONITRATE 20 MG TAB PO SCH ×2 (10:55→22:59)
[2021-05-16] MEDS: PENTOXIFYLLINE 400 MG ER TAB PO SCH ×2 (10:56→22:59)
[2021-05-16 13:00] VITALS: BP 158/74
[2021-05-16 17:00] VITALS: BP 160/80
[2021-05-16] MEDS: hydrALAZINE HCL 20 MG/ML VL IV PRN (17:06)
[2021-05-16] MEDS: BUDESONIDE (INHALATION) 180 MCG IH IN SCH (19:51)
[2021-05-16] MEDS: ALBUTEROL SULF HFA 90MCG INH 200DOSE IN PRN (19:51)
[2021-05-16] MEDS ORDERED: amLODIPine BESYLATE 5 MG TAB PO ONE (21:15)
[2021-05-16 22:00] VITALS: BP 151/71
[2021-05-16] MEDS: ATORVASTATIN 20 MG TAB PO SCH (22:59)
[2021-05-17 05:00] VITALS: BP 164/78
[2021-05-17] MEDS: hydrALAZINE HCL 20 MG/ML VL IV PRN (05:41)
[2021-05-17] MEDS: BUDESONIDE (INHALATION) 180 MCG IH IN SCH ×2 (06:37→22:21)
[2021-05-17] MEDS: ALBUTEROL SULF HFA 90MCG INH 200DOSE IN PRN (06:37)
[2021-05-17] MEDS: ACCU-CHEK COMFORT CURVE STRIP VI SCH ×4 (06:45→23:11)
[2021-05-17] MEDS: InsuLIN REG 1unit/0.01ml Soln (100units/ml) SC SCH ×4 (06:46→23:11)
[2021-05-17] MEDS: LEVOTHYROXINE SODIUM 100 MCG TAB PO SCH (06:46)
[2021-05-17 09:00] VITALS: BP 151/69
[2021-05-17] MEDS: CALCIUM W/VIT D (600MG/400IU) TAB PO SCH ×2 (09:09→18:22)
[2021-05-17] MEDS: DexAMETHasone SOD PHOS 10MG/1ML VIAL INJ IV SCH (09:30)
[2021-05-17] MEDS: INSULIN 70/30 1unit/0.01ml Susp (100units/ml) SC SCH ×2 (09:30→18:33)
[2021-05-17] MEDS: ASPirin 81 mg TAB PO SCH (09:30)
[2021-05-17] MEDS: CLOPIDOGREL BISULFATE 75 MG TAB PO SCH (09:31)
[2021-05-17] MEDS: IVERMECTIN 3 MG TAB PO SCH (09:31)
[2021-05-17] MEDS: ISOSORBIDE MONONITRATE 20 MG TAB PO SCH ×2 (09:31→23:11)
[2021-05-17] MEDS: amLODIPine BESYLATE 5 MG TAB PO SCH (09:31)
[2021-05-17] MEDS: METOPROLOL SUCCINATE XL 50 MG TAB PO SCH (09:32)
[2021-05-17] MEDS: CHOLECALCIFEROL (VITD3) 2,000 UNIT CAP/TAB PO SCH (09:32)
[2021-05-17] MEDS: ASCORBIC ACID 1,000 MG TAB PO SCH (09:32)
[2021-05-17] MEDS: PENTOXIFYLLINE 400 MG ER TAB PO SCH ×2 (09:32→23:11)
[2021-05-17] MEDS: ENOXAPARIN SOD 40 MG/0.4 ML SYRINGE SC SCH (09:32)
[2021-05-17] MEDS: DOXYCYCLINE 100MG/250ML 250 ML IV SCH ×2 (10:00→22:00)
[2021-05-17] MEDS ORDERED: ALBUAER3 IN (11:22)
[2021-05-17] MEDS ORDERED: DEX4T PO (11:22)
[2021-05-17] MEDS ORDERED: CHOL1CAP47 PO (11:22)
[2021-05-17] MEDS ORDERED: ZINC220T6 PO (11:22)
[2021-05-17] MEDS ORDERED: ASCO10003 PO (11:22)
[2021-05-17 13:00] VITALS: BP_SYST 120; BP_SYST 127; BP_SYST 140; BP_DIAS 61; BP_DIAS 65; BP_DIAS 76
[2021-05-17 16:10] LABS: BUN/Creatinine Ratio 24.8; Calcium 9.6 mg/dL (8.5-10.1); Potassium 4.2 mmol/L (3.5-5.1)
[2021-05-17 17:00] VITALS: BP 125/84
[2021-05-17] MEDS: SODIUM BICARBONATE 650 MG TAB PO SCH ×2 (18:22→23:11)
[2021-05-17 22:00] VITALS: BP 155/80
[2021-05-17] MEDS: ATORVASTATIN 20 MG TAB PO SCH (23:11)
[2021-05-18 05:00] VITALS: BP 153/83
[2021-05-18] MEDS: SODIUM BICARBONATE 650 MG TAB PO SCH ×4 (05:56→21:25)
[2021-05-18] MEDS: LEVOTHYROXINE SODIUM 100 MCG TAB PO SCH (05:57)
[2021-05-18] MEDS: InsuLIN REG 1unit/0.01ml Soln (100units/ml) SC SCH ×4 (05:57→21:32)
[2021-05-18] MEDS: ACCU-CHEK COMFORT CURVE STRIP VI SCH ×4 (05:57→21:39)
[2021-05-18] MEDS: ALBUTEROL SULF HFA 90MCG INH 200DOSE IN PRN ×2 (06:11→22:02)
[2021-05-18] MEDS: BUDESONIDE (INHALATION) 180 MCG IH IN SCH ×2 (06:11→22:01)
[2021-05-18] MEDS: hydrALAZINE HCL 20 MG/ML VL IV PRN ×2 (06:30→15:21)
[2021-05-18 07:01] LABS: Basophils # (auto) 0 10 ^3/uL (0-0.2); Eosinophils # (auto) 0.1 10 ^3/uL (0-0.8); Eosinophils % (auto) 0.3 % (0.0-7.0); Hematocrit 34.9 % (36.0-46.0); Hemoglobin 11.9 g/dL (12.2-16.2); Lymphocytes # (auto) 13.2 10 ^3/uL (0.4-5.4); Lymphocytes % (auto) 52.3 % (10.0-50.0); Mean Corpuscular Hemoglobin 29.1 pg (28.0-32.0); Mean Corpuscular Hgb Conc. 34.1 g/dL (32.0-36.0); Mean Corpuscular Volume 85.3 fL (80.0-100.0); Monocytes # (auto) 1.5 10 ^3/uL (0-1.3); Monocytes % (auto) 5.8 % (0.0-12.0); Neutrophils # (auto) 10.5 10 ^3/uL (1.6-8.6); Neutrophils % (auto) 41.6 % (37.0-80.0); Red Blood Cells 4.09 10^6/uL (4.0-5.20); Red Cell Distribution Width 13.6 % (11.8-14.3); White Blood Cell 25.2 10^3/uL (4.4-10.8)
[2021-05-18 07:21] LABS: Calcium 9.2 mg/dL (8.5-10.1); Potassium 3.9 mmol/L (3.5-5.1)
[2021-05-18 07:28] LABS: Albumin 3.5 g/dL (3.4-5.0); BUN/Creatinine Ratio 25.4; Bilirubin, Total 0.6 mg/dL (0.2-1.0); Total Protein 6.4 g/dL (6.4-8.2)
[2021-05-18] MEDS: ASPirin 81 mg TAB PO SCH (08:59)
[2021-05-18] MEDS: CLOPIDOGREL BISULFATE 75 MG TAB PO SCH (08:59)
[2021-05-18] MEDS: CHOLECALCIFEROL (VITD3) 2,000 UNIT CAP/TAB PO SCH (09:00)
[2021-05-18] MEDS: IVERMECTIN 3 MG TAB PO SCH (09:00)
[2021-05-18] MEDS: ASCORBIC ACID 1,000 MG TAB PO SCH (09:00)
[2021-05-18] MEDS: CALCIUM W/VIT D (600MG/400IU) TAB PO SCH ×2 (09:01→18:05)
[2021-05-18] MEDS: amLODIPine BESYLATE 5 MG TAB PO SCH (09:01)
[2021-05-18] MEDS: PENTOXIFYLLINE 400 MG ER TAB PO SCH ×2 (09:02→21:26)
[2021-05-18] MEDS: METOPROLOL SUCCINATE XL 50 MG TAB PO SCH (09:02)
[2021-05-18] MEDS: ENOXAPARIN SOD 40 MG/0.4 ML SYRINGE SC SCH (09:03)
[2021-05-18] MEDS: ISOSORBIDE MONONITRATE 20 MG TAB PO SCH ×2 (09:03→21:26)
[2021-05-18] MEDS: DOXYCYCLINE 100MG/250ML 250 ML IV SCH ×2 (09:04→21:26)
[2021-05-18] MEDS: DexAMETHasone SOD PHOS 10MG/1ML VIAL INJ IV SCH (09:04)
[2021-05-18] MEDS: INSULIN 70/30 1unit/0.01ml Susp (100units/ml) SC SCH ×2 (09:17→18:10)
[2021-05-18 13:00] VITALS: BP 162/66
[2021-05-18 17:00] VITALS: BP 156/84
[2021-05-18] MEDS: ATORVASTATIN 20 MG TAB PO SCH (21:26)
[2021-05-18] MEDS: SODIUM CHLORIDE 1 GM TAB PO SCH (21:26)
[2021-05-18 22:00] VITALS: BP 150/69
[2021-05-19 00:10] LABS: Urine Bacteria FEW /hpf (None Seen); Urine Blood Negative /uL (Negative); Urine Specific Gravity 1.011 (1.001-1.035); Urine WBC 2 /hpf (0 - 5)
[2021-05-19 00:22] LABS: Creatinine, Urine 75 mg/dL (30.0-125.0); Sodium Urine 51 mmol/L (40-220)
[2021-05-19 05:00] VITALS: BP 148/74
[2021-05-19] MEDS: ACCU-CHEK COMFORT CURVE STRIP VI SCH ×4 (06:00→21:44)
[2021-05-19] MEDS: LEVOTHYROXINE SODIUM 100 MCG TAB PO SCH (06:04)
[2021-05-19] MEDS: InsuLIN REG 1unit/0.01ml Soln (100units/ml) SC SCH ×4 (06:05→21:44)
[2021-05-19] MEDS: ALBUTEROL SULF HFA 90MCG INH 200DOSE IN PRN ×2 (06:14→23:07)
[2021-05-19] MEDS: BUDESONIDE (INHALATION) 180 MCG IH IN SCH ×2 (06:14→22:00)
[2021-05-19] MEDS: SODIUM BICARBONATE 650 MG TAB PO SCH ×4 (06:22→21:24)
[2021-05-19] MEDS: CALCIUM W/VIT D (600MG/400IU) TAB PO SCH ×2 (08:49→16:53)
[2021-05-19] MEDS: INSULIN 70/30 1unit/0.01ml Susp (100units/ml) SC SCH ×2 (08:50→16:55)
[2021-05-19 09:00] VITALS: BP 138/83
[2021-05-19 09:03] LABS: Calcium 9.4 mg/dL (8.5-10.1); Potassium 3.6 mmol/L (3.5-5.1)
[2021-05-19 09:09] LABS: Hematocrit 34.7 % (36.0-46.0); Hemoglobin 11.8 g/dL (12.2-16.2); Mean Corpuscular Hemoglobin 29.2 pg (28.0-32.0); Mean Corpuscular Hgb Conc. 34.1 g/dL (32.0-36.0); Mean Corpuscular Volume 85.6 fL (80.0-100.0); Red Blood Cells 4.06 10^6/uL (4.0-5.20); Red Cell Distribution Width 13.9 % (11.8-14.3)
[2021-05-19 09:16] LABS: White Blood Cell 39.3 10^3/uL (4.4-10.8)
[2021-05-19 09:18] LABS: Basophils % (manual) 0 (0.0-2.0); Blast Cells 0; Eosinophils % (manual) 0 (0-7); Myelocytes % 0; Promyelocytes % 0; Reactive Lymphocytes 0
[2021-05-19] MEDS: ASPirin 81 mg TAB PO SCH (09:44)
[2021-05-19] MEDS: ISOSORBIDE MONONITRATE 20 MG TAB PO SCH ×2 (09:45→21:30)
[2021-05-19] MEDS: SODIUM CHLORIDE 1 GM TAB PO SCH ×2 (09:45→21:24)
[2021-05-19] MEDS: amLODIPine BESYLATE 5 MG TAB PO SCH (09:46)
[2021-05-19] MEDS: CLOPIDOGREL BISULFATE 75 MG TAB PO SCH (09:46)
[2021-05-19] MEDS: IVERMECTIN 3 MG TAB PO SCH (09:46)
[2021-05-19] MEDS: ASCORBIC ACID 1,000 MG TAB PO SCH (09:47)
[2021-05-19] MEDS: METOPROLOL SUCCINATE XL 50 MG TAB PO SCH (09:47)
[2021-05-19] MEDS: ENOXAPARIN SOD 40 MG/0.4 ML SYRINGE SC SCH (09:47)
[2021-05-19] MEDS: DOXYCYCLINE 100 MG TAB/CAP PO SCH ×2 (09:47→21:31)
[2021-05-19] MEDS: CHOLECALCIFEROL (VITD3) 2,000 UNIT CAP/TAB PO SCH (09:47)
[2021-05-19] MEDS: PENTOXIFYLLINE 400 MG ER TAB PO SCH ×2 (09:47→21:30)
[2021-05-19] MEDS ORDERED: DexAMETHasone 4 MG TAB PO SCH (10:00)
[2021-05-19 10:09] LABS: Band Neutrophils % (manual) 3; Lymphocytes % (manual) 58 (10.0-50.0); Metamyelocytes % 1; Monocytes % (manual) 2 (0-12)
[2021-05-19 13:00] VITALS: BP 152/66
[2021-05-19 17:00] VITALS: BP 146/90
[2021-05-19] MEDS: TEMAZEPAM 15 MG CAP PO PRN (21:23)
[2021-05-19] MEDS: ATORVASTATIN 20 MG TAB PO SCH (21:30)
[2021-05-19 22:00] VITALS: BP 143/70
[2021-05-20 05:00] VITALS: BP 155/71
[2021-05-20] MEDS: hydrALAZINE HCL 20 MG/ML VL IV PRN (05:28)
[2021-05-20] MEDS: ACCU-CHEK COMFORT CURVE STRIP VI SCH ×4 (06:11→21:55)
[2021-05-20] MEDS: LEVOTHYROXINE SODIUM 100 MCG TAB PO SCH (06:11)
[2021-05-20] MEDS: SODIUM BICARBONATE 650 MG TAB PO SCH ×4 (06:11→21:53)
[2021-05-20] MEDS: InsuLIN REG 1unit/0.01ml Soln (100units/ml) SC SCH ×4 (06:12→21:55)
[2021-05-20] MEDS: ALBUTEROL SULF HFA 90MCG INH 200DOSE IN PRN ×2 (06:16→23:42)
[2021-05-20] MEDS: BUDESONIDE (INHALATION) 180 MCG IH IN SCH ×2 (06:16→19:48)
[2021-05-20 06:32] LABS: Hemoglobin 11.9 g/dL (12.2-16.2); Mean Corpuscular Hgb Conc. 33.7 g/dL (32.0-36.0)
[2021-05-20 06:38] LABS: Hematocrit 35.4 % (36.0-46.0); Mean Corpuscular Volume 86.2 fL (80.0-100.0)
[2021-05-20 06:45] LABS: White Blood Cell 43.1 10^3/uL (4.4-10.8)
[2021-05-20 06:46] LABS: Basophils % (manual) 0 (0.0-2.0); Blast Cells 0; Eosinophils % (manual) 0 (0-7); Myelocytes % 0; Potassium 3.9 mmol/L (3.5-5.1); Promyelocytes % 0
[2021-05-20 06:49] LABS: BUN/Creatinine Ratio 21.2; Calcium 9.1 mg/dL (8.5-10.1)
[2021-05-20 07:40] LABS: Band Neutrophils % (manual) 4; Lymphocytes % (manual) 58 (10.0-50.0); Metamyelocytes % 1; Monocytes % (manual) 1 (0-12); Reactive Lymphocytes 9
[2021-05-20 08:30] VITALS: BP 160/80
[2021-05-20] MEDS ORDERED: OMNIPAQUE ORAL SOLN 500ml 12mg/ml PO ONE (08:38)
[2021-05-20] MEDS: CALCIUM W/VIT D (600MG/400IU) TAB PO SCH ×2 (08:51→17:42)
[2021-05-20] MEDS: SODIUM CHLORIDE 1 GM TAB PO SCH ×2 (08:51→21:53)
[2021-05-20] MEDS: ASPirin 81 mg TAB PO SCH (08:51)
[2021-05-20] MEDS: ISOSORBIDE MONONITRATE 20 MG TAB PO SCH ×2 (08:52→21:54)
[2021-05-20] MEDS: amLODIPine BESYLATE 5 MG TAB PO SCH (08:52)
[2021-05-20] MEDS: CLOPIDOGREL BISULFATE 75 MG TAB PO SCH (08:53)
[2021-05-20] MEDS: METOPROLOL SUCCINATE XL 50 MG TAB PO SCH (08:53)
[2021-05-20] MEDS: PENTOXIFYLLINE 400 MG ER TAB PO SCH ×2 (08:53→21:54)
[2021-05-20] MEDS: DOXYCYCLINE 100 MG TAB/CAP PO SCH ×2 (08:53→21:54)
[2021-05-20] MEDS: ASCORBIC ACID 1,000 MG TAB PO SCH (08:54)
[2021-05-20] MEDS: CHOLECALCIFEROL (VITD3) 2,000 UNIT CAP/TAB PO SCH (08:54)
[2021-05-20] MEDS: ENOXAPARIN SOD 40 MG/0.4 ML SYRINGE SC SCH (08:54)
[2021-05-20] MEDS ORDERED: DexAMETHasone SOD PHOS 10MG/1ML VIAL INJ IV SCH (10:00)
[2021-05-20] MEDS: INSULIN 70/30 1unit/0.01ml Susp (100units/ml) SC SCH ×2 (10:50→17:42)
[2021-05-20] MEDS ORDERED: SODIUM CHLORIDE 0.9% 1,000 ML IV ONE (12:30)
[2021-05-20 17:05] VITALS: BP 129/71
[2021-05-20] MEDS: TEMAZEPAM 15 MG CAP PO PRN (21:53)
[2021-05-20] MEDS: ATORVASTATIN 20 MG TAB PO SCH (21:54)
[2021-05-20 22:00] VITALS: BP_SYST 114; BP_SYST 154; BP_DIAS 65; BP_DIAS 89
[2021-05-21 05:00] VITALS: BP 147/67
[2021-05-21] MEDS: SODIUM BICARBONATE 650 MG TAB PO SCH ×2 (06:07→11:51)
[2021-05-21] MEDS: LEVOTHYROXINE SODIUM 100 MCG TAB PO SCH (06:07)
[2021-05-21] MEDS: InsuLIN REG 1unit/0.01ml Soln (100units/ml) SC SCH ×2 (06:07→11:53)
[2021-05-21] MEDS: ACCU-CHEK COMFORT CURVE STRIP VI SCH ×2 (06:08→11:50)
[2021-05-21] MEDS: ALBUTEROL SULF HFA 90MCG INH 200DOSE IN PRN (07:15)
[2021-05-21] MEDS: BUDESONIDE (INHALATION) 180 MCG IH IN SCH (07:15)
[2021-05-21] MEDS: INSULIN 70/30 1unit/0.01ml Susp (100units/ml) SC SCH (08:00)
[2021-05-21 09:28] LABS: Hematocrit 33.7 % (36.0-46.0); Hemoglobin 11.5 g/dL (12.2-16.2); Mean Corpuscular Hemoglobin 29.8 pg (28.0-32.0); Mean Corpuscular Volume 87.4 fL (80.0-100.0); Red Blood Cells 3.86 10^6/uL (4.0-5.20); Red Cell Distribution Width 14.1 % (11.8-14.3); White Blood Cell 27.9 10^3/uL (4.4-10.8)
[2021-05-21 09:36] LABS: Basophils % (manual) 0 (0.0-2.0); Blast Cells 0; Eosinophils % (manual) 0 (0-7); Metamyelocytes % 0; Myelocytes % 0; Promyelocytes % 0
[2021-05-21 09:52] LABS: BUN/Creatinine Ratio 19.1; Calcium 8.8 mg/dL (8.5-10.1); Potassium 4.1 mmol/L (3.5-5.1)
[2021-05-21] MEDS: CALCIUM W/VIT D (600MG/400IU) TAB PO SCH (10:20)
[2021-05-21] MEDS: SODIUM CHLORIDE 1 GM TAB PO SCH (10:21)
[2021-05-21] MEDS: ASPirin 81 mg TAB PO SCH (10:21)
[2021-05-21] MEDS: ISOSORBIDE MONONITRATE 20 MG TAB PO SCH (10:22)
[2021-05-21] MEDS: amLODIPine BESYLATE 5 MG TAB PO SCH (10:22)
[2021-05-21] MEDS: PENTOXIFYLLINE 400 MG ER TAB PO SCH (10:23)
[2021-05-21] MEDS: METOPROLOL SUCCINATE XL 50 MG TAB PO SCH (10:23)
[2021-05-21] MEDS: CLOPIDOGREL BISULFATE 75 MG TAB PO SCH (10:23)
[2021-05-21] MEDS: ENOXAPARIN SOD 40 MG/0.4 ML SYRINGE SC SCH (10:24)
[2021-05-21] MEDS: CHOLECALCIFEROL (VITD3) 2,000 UNIT CAP/TAB PO SCH (10:24)
[2021-05-21] MEDS: ASCORBIC ACID 1,000 MG TAB PO SCH (10:24)
[2021-05-21 10:36] LABS: Band Neutrophils % (manual) 2; Lymphocytes % (manual) 43 (10.0-50.0); Monocytes % (manual) 5 (0-12); Reactive Lymphocytes 15
[2021-05-21 13:00] VITALS: BP 137/70
[2021-05-21] MEDS ORDERED: DexAMETHasone SOD PHOS 4 MG/1ML SDV INJ IV ONE (15:30)
[2021-05-21 16:02] VITALS: BP 137/70
[2021-05-22] MEDS ORDERED: DexAMETHasone SOD PHOS 4 MG/1ML SDV INJ IV SCH (10:00)
== END 2021-05-21 16:42 | disposition home or self-care (01) | DRG 177 ==
LOC: ER 09:07 → TELE 13:36 → TELE-EAST 22:23 → EAST 05-19 10:03
PROVIDERS: ADMIT Hospitalist; ATTEND Internal Medicine
DX: U07.1 COVID-19 (principal); I50.33 Acute on chronic diastolic (congestive) heart failure; J12.82 Pneumonia due to coronavirus disease 2019; J96.01 Acute respiratory failure with hypoxia; N17.0 Acute kidney failure with tubular necrosis; E87.1 Hypo-osmolality and hyponatremia; I13.0 Hypertensive heart and chronic kidney disease with heart failure and stage 1 through stage 4 chronic kidney disease, or unspecified chronic kidney disease; N18.4 Chronic kidney disease, stage 4 (severe); J44.0 Chronic obstructive pulmonary disease with (acute) lower respiratory infection; E11.65 Type 2 diabetes mellitus with hyperglycemia; D89.839 Cytokine release syndrome, grade unspecified; E03.9 Hypothyroidism, unspecified; E11.649 Type 2 diabetes mellitus with hypoglycemia without coma; E66.9 Obesity, unspecified; E78.5 Hyperlipidemia, unspecified; E86.1 Hypovolemia; E87.5 Hyperkalemia; E88.09 Other disorders of plasma-protein metabolism, not elsewhere classified; E11.40 Type 2 diabetes mellitus with diabetic neuropathy, unspecified; K21.9 Gastro-esophageal reflux disease without esophagitis; I65.29 Occlusion and stenosis of unspecified carotid artery; E11.51 Type 2 diabetes mellitus with diabetic peripheral angiopathy without gangrene; E11.22 Type 2 diabetes mellitus with diabetic chronic kidney disease; M81.0 Age-related osteoporosis without current pathological fracture; R55 Syncope and collapse; E86.0 Dehydration; I77.1 Stricture of artery; Z91.041 Radiographic dye allergy status; Z91.013 Allergy to seafood; Z88.8 Allergy status to other drugs, medicaments and biological substances; Z91.018 Allergy to other foods; Z68.26 Body mass index [BMI] 26.0-26.9, adult; Z79.02 Long term (current) use of antithrombotics/antiplatelets; Z79.82 Long term (current) use of aspirin; Z79.83 Long term (current) use of bisphosphonates; Z79.899 Other long term (current) drug therapy; Z82.49 Family history of ischemic heart disease and other diseases of the circulatory system; Z83.3 Family history of diabetes mellitus; Z87.891 Personal history of nicotine dependence
CPT/HCPCS: 36415; 36600; 70450; 71045; 71250; 74176; 80048; 80053; 80061; 80307; 81001; 82306; 82533; 82570; 82728; 82805; 82962; 83036; 83605; 83615; 83735; 83880; 83930; 83935; 84100; 84300; 84443; 84484; 85007; 85025; 85027; 85048; 85379; 86141; 87040; 87086; 87426; 87493; 93005; 93306; 93886; 94640; 96361; 96374; 96375; G0378; J1100; J1815; J3490; J7060; P9047

== ENCOUNTER → 2021-08-21 | Day surgery (SDC) | payer OTHER ==
[2021-08-19 13:29] LABS: Basophils # (auto) 0.1 10 ^3/uL (0-0.2); Eosinophils # (auto) 0.3 10 ^3/uL (0-0.8); Eosinophils % (auto) 3.4 % (0.0-7.0); Hematocrit 35.9 % (36.0-46.0); Lymphocytes # (auto) 4.2 10 ^3/uL (0.4-5.4); Mean Corpuscular Hemoglobin 29.6 pg (28.0-32.0); Mean Corpuscular Hgb Conc. 33.5 g/dL (32.0-36.0); Mean Corpuscular Volume 88.6 fL (80.0-100.0); Monocytes # (auto) 0.6 10 ^3/uL (0-1.3); Monocytes % (auto) 5.8 % (0.0-12.0); Neutrophils # (auto) 4.6 10 ^3/uL (1.6-8.6); Neutrophils % (auto) 46.8 % (37.0-80.0); Nucleated Red Blood Cells % 0.1 %; Red Blood Cells 4.05 10^6/uL (4.0-5.20); Red Cell Distribution Width 15.7 % (11.8-14.3); White Blood Cell 9.8 10^3/uL (4.4-10.8)
[2021-08-19 14:18] LABS: INR 0.95 (0.9-1.15); Partial Thromboplastin Time 26.7 sec (23.6-33.0)
[2021-08-19 14:40] LABS: Calcium 8.7 mg/dL (8.5-10.1); Potassium 4.2 mmol/L (3.5-5.1)
[2021-08-19 14:51] LABS: Albumin 3.5 g/dL (3.4-5.0); Bilirubin, Total 0.3 mg/dL (0.2-1.0); Total Protein 6.8 g/dL (6.4-8.2)
[~2021-08-21] VITALS: Ht 152.4 cm; Wt 61.2 kg
[~2021-08-21] MED LIST changes: +ALBUAER3 IN; +ALEN70TA74 PO; +AML5T PO; +ASCO10003 PO; +ATOR20TA50 PO; +CHOL1CAP47 PO; -CINN500C7 PO; +GABA-339 PO; -GABA300C10 PO; +HYDR50TA15 PO; -LOS50T PO; +LOSA-39 PO; +MET50T PO; -PANT40TA2 PO; -POTA1080 PO; +PSYL0.524 PO; +ZINC220T6 PO; -[UNRECOGNIZED DRUG - CODE] PO
[2021-08-21] MEDS: MIDAZOLAM HCL 5 MG/ML-1ML VIAL ONE ×3 (15:31→15:48)
[2021-08-21] MEDS: fentaNYL CITRATE 100 MCG/2 ML VL ONE ×3 (15:31→15:48)
[2021-08-21] MEDS: diphenhdrAMINE HCL 50 MG/1 ML VL ONE ×2 (15:34→15:42)
[2021-08-21 16:50] VITALS: BP 160/58
== END | disposition home or self-care (01) ==
LOC: GI 12:46
PROVIDERS: ATTEND Internal Medicine Gastroenterology
DX: K59.00 Constipation, unspecified (principal); D12.2 Benign neoplasm of ascending colon; D12.3 Benign neoplasm of transverse colon; D12.5 Benign neoplasm of sigmoid colon; K63.89 Other specified diseases of intestine; K64.8 Other hemorrhoids; J44.9 Chronic obstructive pulmonary disease, unspecified; I11.0 Hypertensive heart disease with heart failure; I50.9 Heart failure, unspecified; E11.9 Type 2 diabetes mellitus without complications; I25.10 Atherosclerotic heart disease of native coronary artery without angina pectoris; Z86.010 Personal history of colon polyps; Z87.891 Personal history of nicotine dependence; Z95.5 Presence of coronary angioplasty implant and graft; Z82.49 Family history of ischemic heart disease and other diseases of the circulatory system; Z83.3 Family history of diabetes mellitus; Z80.8 Family history of malignant neoplasm of other organs or systems; Z91.041 Radiographic dye allergy status; Z88.8 Allergy status to other drugs, medicaments and biological substances; Z20.822 Contact with and (suspected) exposure to COVID-19
CPT/HCPCS: 36415; 45380; 80053; 82962; 85025; 85610; 85730; 88305; J1200; J2250; J3010; J7030; U0003; 99152; 99153

== ENCOUNTER 2021-10-01 12:50 | Emergency (ER) | payer OTHER ==
[~2021-10-01] VITALS: Ht 152.4 cm; Wt 58.5 kg
[2021-10-01] MEDS ORDERED: SODIUM CHLORIDE 0.9% 1,000 ML IV ONE (13:00)
[2021-10-01 13:44] LABS: Basophils # (auto) 0.1 10 ^3/uL (0-0.2); Basophils % (auto) 0.9 % (0.0-2.0); Eosinophils # (auto) 0.2 10 ^3/uL (0-0.8); Eosinophils % (auto) 1.6 % (0.0-7.0); Hematocrit 38.9 % (36.0-46.0); Hemoglobin 12.8 g/dL (12.2-16.2); Lymphocytes # (auto) 5.5 10 ^3/uL (0.4-5.4); Lymphocytes % (auto) 40.5 % (10.0-50.0); Mean Corpuscular Hemoglobin 29.3 pg (28.0-32.0); Mean Corpuscular Hgb Conc. 32.8 g/dL (32.0-36.0); Mean Corpuscular Volume 89.4 fL (80.0-100.0); Monocytes # (auto) 0.8 10 ^3/uL (0-1.3); Monocytes % (auto) 6.1 % (0.0-12.0); Neutrophils # (auto) 6.9 10 ^3/uL (1.6-8.6); Neutrophils % (auto) 50.9 % (37.0-80.0); Red Blood Cells 4.36 10^6/uL (4.0-5.20); Red Cell Distribution Width 15.9 % (11.8-14.3); White Blood Cell 13.7 10^3/uL (4.4-10.8)
[2021-10-01 14:05] VITALS: BP 122/59
[2021-10-01 14:07] LABS: Albumin 3.7 g/dL (3.4-5.0); Calcium 9.3 mg/dL (8.5-10.1)
[2021-10-01 14:41] LABS: Bilirubin, Total 0.3 mg/dL (0.2-1.0); Total Protein 7.5 g/dL (6.4-8.2)
[2021-10-01 15:03] LABS: Potassium 4.3 mmol/L (3.5-5.1)
[2021-10-01] MEDS ORDERED: CEPH-509 PO (17:00)
[2021-10-01] MEDS ORDERED: MECL25CH38 PO (17:00)
[2021-10-01 17:11] LABS: Urine Bacteria FEW /hpf (None Seen); Urine Blood Negative /uL (Negative); Urine Hyaline Cast FEW /lpf (0 - 2); Urine Mucus FEW (None Seen); Urine Specific Gravity 1.017 (1.001-1.035); Urine WBC 82 /hpf (0 - 5)
== END 2021-10-01 17:23 | disposition home or self-care (01) ==
LOC: ER 12:50
DX: R55 Syncope and collapse (principal); N39.0 Urinary tract infection, site not specified; E11.9 Type 2 diabetes mellitus without complications; I10 Essential (primary) hypertension; Z79.899 Other long term (current) drug therapy; Z91.013 Allergy to seafood; Z88.8 Allergy status to other drugs, medicaments and biological substances
CPT/HCPCS: 36415; 70450; 80053; 81001; 84484; 85025; 93005

== ENCOUNTER → 2022-01-15 | Outpatient (CLI) | payer OTHER ==
[~2022-01-15] MED LIST changes: +CEPH-509 PO; +MECL25CH38 PO
[2022-01-15 09:11] LABS: BUN/Creatinine Ratio 22.9; Calcium 8.8 mg/dL (8.5-10.1); Potassium 4.3 mmol/L (3.5-5.1)
== END | disposition home or self-care (01) ==
LOC: LAB 08:26
PROVIDERS: ATTEND Student in an Organized Health Care Education/Training Program
DX: E11.22 Type 2 diabetes mellitus with diabetic chronic kidney disease (principal)
CPT/HCPCS: 36415; 80048; 83036

== ENCOUNTER → 2022-01-30 | Outpatient (CLI) | payer OTHER ==
[2022-01-30 08:18] LABS: Basophils # (auto) 0.1 10 ^3/uL (0-0.2); Basophils % (auto) 0.6 % (0.0-2.0); Eosinophils # (auto) 0.2 10 ^3/uL (0-0.8); Eosinophils % (auto) 1.3 % (0.0-7.0); Hematocrit 36.5 % (36.0-46.0); Hemoglobin 11.7 g/dL (12.2-16.2); Lymphocytes % (auto) 52.3 % (10.0-50.0); Mean Corpuscular Hemoglobin 29.8 pg (28.0-32.0); Mean Corpuscular Hgb Conc. 31.9 g/dL (32.0-36.0); Mean Corpuscular Volume 93.3 fL (80.0-100.0); Monocytes # (auto) 0.7 10 ^3/uL (0-1.3); Monocytes % (auto) 4.3 % (0.0-12.0); Neutrophils # (auto) 6.4 10 ^3/uL (1.6-8.6); Neutrophils % (auto) 41.5 % (37.0-80.0); Red Blood Cells 3.91 10^6/uL (4.0-5.20); White Blood Cell 15.3 10^3/uL (4.4-10.8)
[2022-01-30 08:42] LABS: Albumin 3.9 g/dL (3.4-5.0); Calcium 8.5 mg/dL (8.5-10.1); Magnesium 2.1 mg/dL (1.6-2.6); Potassium 4.2 mmol/L (3.5-5.1)
[2022-01-30 08:46] LABS: BUN/Creatinine Ratio 15.5; Bilirubin, Total 0.4 mg/dL (0.2-1.0); Phosphorus 4.5 mg/dL (2.5-4.90); Total Protein 6.6 g/dL (6.4-8.2)
[2022-01-30 09:17] LABS: Urine Bacteria FEW /hpf (None Seen); Urine Blood Negative /uL (Negative); Urine Hyaline Cast FEW /lpf (0 - 2); Urine Mucus FEW (None Seen); Urine Specific Gravity 1.015 (1.001-1.035); Urine WBC 59 /hpf (0 - 5); Urine WBC Clumps PRESENT /hpf (None Seen)
[2022-01-30 16:38] LABS: Protein, Urine 64.4 mg/dL (0.0-11.9)
== END | disposition home or self-care (01) ==
LOC: LAB 07:56
PROVIDERS: ATTEND Internal Medicine Nephrology
DX: N18.4 Chronic kidney disease, stage 4 (severe) (principal)
CPT/HCPCS: 36415; 80053; 81001; 82043; 82306; 82570; 83036; 83735; 83970; 84100; 84156; 85025

== ENCOUNTER → 2022-04-28 | Outpatient (CLI) | payer OTHER | END | disposition home or self-care (01) | LOC: XYW 07:16 | PROVIDERS: ATTEND Internal Medicine | DX: I08.3 Combined rheumatic disorders of mitral, aortic and tricuspid valves (principal); R07.9 Chest pain, unspecified | CPT/HCPCS: 93306 ==

== ENCOUNTER → 2022-05-13 | Outpatient (CLI) | payer OTHER ==
[~2022-05-13] VITALS: Ht 149.9 cm; Wt 52.2 kg
[~2022-05-13] MED LIST changes: +ADENOSINE 44 MG in GIVE UN-DILUTED 0 ML IV STA
[2022-05-13 08:19] VITALS: BP 161/74
== END | disposition home or self-care (01) ==
LOC: XY 07:02
PROVIDERS: ATTEND Internal Medicine
DX: R07.9 Chest pain, unspecified (principal); I77.1 Stricture of artery; I73.9 Peripheral vascular disease, unspecified; I10 Essential (primary) hypertension; K21.9 Gastro-esophageal reflux disease without esophagitis; R79.89 Other specified abnormal findings of blood chemistry; R94.4 Abnormal results of kidney function studies
CPT/HCPCS: 78452; 93017; A9500; J0153

== ENCOUNTER → 2022-07-14 | Outpatient (CLI) | payer OTHER ==
[~2022-07-14] MED LIST changes: -ADENOSINE 44 MG in GIVE UN-DILUTED 0 ML IV STA
[2022-07-14 12:34] LABS: Hemoglobin 11.6 g/dL (12.2-16.2); Mean Corpuscular Hemoglobin 31.9 pg (28.0-32.0); Mean Corpuscular Hgb Conc. 34.2 g/dL (32.0-36.0); Mean Corpuscular Volume 93.2 fL (80.0-100.0); Red Blood Cells 3.64 10^6/uL (4.0-5.20); Red Cell Distribution Width 13.9 % (11.8-14.3); White Blood Cell 17.2 10^3/uL (4.4-10.8)
[2022-07-14 12:41] LABS: Basophils % (manual) 0 (0.0-2.0); Blast Cells 0; Metamyelocytes % 0; Myelocytes % 0; Promyelocytes % 0
[2022-07-14 12:46] LABS: Urine Bacteria NONE SEEN /hpf (None Seen); Urine Blood Negative /uL (Negative); Urine Specific Gravity 1.013 (1.001-1.035); Urine WBC <1 /hpf (0 - 5)
[2022-07-14 12:59] LABS: Potassium 4.5 mmol/L (3.5-5.1)
[2022-07-14 13:05] LABS: BUN/Creatinine Ratio 19.5; Bilirubin, Total 0.4 mg/dL (0.2-1.0); Calcium 8.9 mg/dL (8.5-10.1); Uric Acid 6.1 mg/dL (2.6-6.0)
[2022-07-14 13:08] LABS: Protein, Urine 61.2 mg/dL (0.0-11.9)
[2022-07-14 13:48] LABS: Band Neutrophils % (manual) 1; Eosinophils % (manual) 2 (0-7); Lymphocytes % (manual) 56 (10.0-50.0); Monocytes % (manual) 1 (0-12); Reactive Lymphocytes 2
== END | disposition home or self-care (01) ==
LOC: LAB 11:50
PROVIDERS: ATTEND Internal Medicine Nephrology
DX: E78.5 Hyperlipidemia, unspecified (principal); E21.3 Hyperparathyroidism, unspecified; N18.31 Chronic kidney disease, stage 3a; D63.1 Anemia in chronic kidney disease
CPT/HCPCS: 36415; 80053; 81001; 82306; 82570; 83970; 84156; 84550; 85007; 85027

== ENCOUNTER → 2022-09-04 | Outpatient (CLI) | payer OTHER | END | disposition home or self-care (01) | LOC: XYW 09:59 | PROVIDERS: ATTEND Internal Medicine | DX: I08.3 Combined rheumatic disorders of mitral, aortic and tricuspid valves (principal); I50.32 Chronic diastolic (congestive) heart failure | CPT/HCPCS: 93306 ==

== ENCOUNTER → 2022-09-10 | Outpatient (CLI) | payer OTHER | END | disposition home or self-care (01) | LOC: XYW 09-04 09:50 | PROVIDERS: ATTEND Internal Medicine | DX: I65.23 Occlusion and stenosis of bilateral carotid arteries (principal) | CPT/HCPCS: 93886 ==

== ENCOUNTER 2022-09-24 10:23 | Inpatient (IN) | payer OTHER ==
[~2022-09-24] VITALS: Ht 152.4 cm; Wt 59.4 kg
[2022-09-24 11:39] LABS: Hemoglobin 9.9 g/dL (12.2-16.2)
[2022-09-24 11:41] LABS: Hematocrit 30.3 % (36.0-46.0); Mean Corpuscular Hemoglobin 30.7 pg (28.0-32.0); Mean Corpuscular Hgb Conc. 32.8 g/dL (32.0-36.0); Mean Corpuscular Volume 93.6 fL (80.0-100.0); Red Blood Cells 3.24 10^6/uL (4.0-5.20); Red Cell Distribution Width 13.9 % (11.8-14.3)
[2022-09-24 11:44] LABS: Albumin 2.8 g/dL (3.4-5.0); BUN/Creatinine Ratio 21.1 (10.0-20.0); Calcium 8.3 mg/dL (8.5-10.1); Magnesium 2.3 mg/dL (1.6-2.6)
[2022-09-24] MEDS ORDERED: PIPERACILLIN-TAZOB 3.375GM 100 ML IV ONE (11:45)
[2022-09-24] MEDS ORDERED: ALBUTEROL SULF 2.5 MG/0.5ML(0.5%) NEB SOLN NEB ONE (11:45)
[2022-09-24] MEDS ORDERED: IPRATROPIUM BROM 0.5 MG/2.5ML INH SOL NEB ONE (11:45)
[2022-09-24] MEDS ORDERED: BUDESONIDE (INHALATION) 0.5 MG/2 ML NEB NEB ONE (11:45)
[2022-09-24 11:46] LABS: Bilirubin, Total 0.5 mg/dL (0.2-1.0); Total Protein 6.1 g/dL (6.4-8.2)
[2022-09-24 12:47] LABS: Basophils % (manual) 0 (0.0-2.0); Blast Cells 0; Eosinophils % (manual) 0 (0-7); Metamyelocytes % 0; Monocytes % (manual) 0 (0-12); Myelocytes % 0; Promyelocytes % 0
[2022-09-24] MEDS ORDERED: SODIUM CHLORIDE 0.9% 2,000 ML IV ONE (13:00)
[2022-09-24 13:37] LABS: Band Neutrophils % (manual) 2; Lymphocytes % (manual) 33 (10.0-50.0); Reactive Lymphocytes 3
[2022-09-24] MEDS ORDERED: DOCUSATE SOD 100 MG CAP PO PRN (15:45)
[2022-09-24] MEDS ORDERED: MORPHINE SULFATE INJ 2 MG/ml SYRG IV PRN (15:45)
[2022-09-24] MEDS ORDERED: ACETAMINOPHEN 325 MG TAB PO PRN (15:45)
[2022-09-24] MEDS ORDERED: ALBUTEROL SULF 2.5 MG/0.5ML(0.5%) NEB SOLN NEB PRN (15:45)
[2022-09-24] MEDS ORDERED: NITROGLYCERIN 0.4 MG SL TAB SL PRN (15:45)
[2022-09-24] MEDS ORDERED: DEXTROSE (50%) 50ML SYRG IV PRN (15:45)
[2022-09-24] MEDS ORDERED: IPRATROPIUM BROM 0.5 MG/2.5ML INH SOL NEB PRN (15:45)
[2022-09-24] MEDS ORDERED: ONDANSETRON HCL 4 MG/2 ML VIAL IV PRN (15:45)
[2022-09-24 16:03] VITALS: BP 114/49
[2022-09-24] MEDS: AZITHROMYCIN 500MG/ 250ML 250 ML IV SCH (17:12)
[2022-09-24] MEDS: InsuLIN REG 1unit/0.01ml Soln (100units/ml) SC SCH ×2 (17:20→22:14)
[2022-09-24 17:29] LABS: Urine Bacteria NONE SEEN /hpf (None Seen); Urine Blood Negative /uL (Negative); Urine Specific Gravity 1.011 (1.001-1.035); Urine WBC 2 /hpf (0 - 5)
[2022-09-24] MEDS: ACCU-CHEK COMFORT CURVE STRIP VI SCH ×2 (17:30→22:14)
[2022-09-24] MEDS: METOPROLOL TARTRATE 50 MG TAB PO SCH (17:39)
[2022-09-24] MEDS: cefTRIAXone 1GM/50ML D5W 50 ML IV SCH (20:42)
[2022-09-24] MEDS: HYDROcodone-ACET 5/325MG TAB PO PRN (20:42)
[2022-09-24 20:54] LABS: Protein, Urine 48.8 mg/dL (0.0-11.9)
[2022-09-24] MEDS: SODIUM CHLOR 0.9% PF (SALINE LOCK) 10ML VIAL/SYR IV SCH (22:23)
[2022-09-24 23:25] VITALS: BP 156/54
[2022-09-25 05:00] VITALS: BP 123/47
[2022-09-25] MEDS: SODIUM CHLOR 0.9% PF (SALINE LOCK) 10ML VIAL/SYR IV SCH ×3 (05:34→23:02)
[2022-09-25] MEDS: ACCU-CHEK COMFORT CURVE STRIP VI SCH ×4 (06:24→23:02)
[2022-09-25] MEDS: InsuLIN REG 1unit/0.01ml Soln (100units/ml) SC SCH ×4 (06:30→23:01)
[2022-09-25] MEDS: LEVOTHYROXINE SODIUM 100 MCG TAB PO SCH (06:31)
[2022-09-25 07:17] LABS: Basophils # (auto) 0 10 ^3/uL (0-0.2); Basophils % (auto) 0.1 % (0.0-2.0); Eosinophils # (auto) 0.2 10 ^3/uL (0-0.8); Hematocrit 25.9 % (36.0-46.0); Hemoglobin 8.6 g/dL (12.2-16.2); Lymphocytes # (auto) 9.9 10 ^3/uL (0.4-5.4); Lymphocytes % (auto) 40.3 % (10.0-50.0); Mean Corpuscular Hemoglobin 30.6 pg (28.0-32.0); Mean Corpuscular Hgb Conc. 33.3 g/dL (32.0-36.0); Monocytes # (auto) 1.6 10 ^3/uL (0-1.3); Monocytes % (auto) 6.4 % (0.0-12.0); Neutrophils # (auto) 12.8 10 ^3/uL (1.6-8.6); Neutrophils % (auto) 52.2 % (37.0-80.0); Nucleated Red Blood Cells % 0.1 %; Red Blood Cells 2.82 10^6/uL (4.0-5.20); Red Cell Distribution Width 13.5 % (11.8-14.3); White Blood Cell 24.6 10^3/uL (4.4-10.8)
[2022-09-25 07:56] LABS: Potassium 3.4 mmol/L (3.5-5.1)
[2022-09-25 08:00] LABS: Albumin 2.4 g/dL (3.4-5.0); BUN/Creatinine Ratio 20.3 (10.0-20.0)
[2022-09-25 08:04] LABS: Bilirubin, Total 0.4 mg/dL (0.2-1.0); Total Protein 6.2 g/dL (6.4-8.2)
[2022-09-25] MEDS: cefTRIAXone 1GM/50ML D5W 50 ML IV SCH (09:00)
[2022-09-25 09:25] VITALS: BP 123/48
[2022-09-25] MEDS: PANTOPRAZOLE 40 MG/10 ML VIAL INJ IV SCH (10:00)
[2022-09-25] MEDS: ATORVASTATIN 20 MG TAB PO SCH (10:00)
[2022-09-25] MEDS: AZITHROMYCIN 500MG/ 250ML 250 ML IV SCH (10:00)
[2022-09-25] MEDS: CLOPIDOGREL BISULFATE 75 MG TAB PO SCH (10:00)
[2022-09-25] MEDS: ENOXAPARIN SOD 30 MG/0.3 ML SYRINGE SC SCH (10:00)
[2022-09-25] MEDS: amLODIPine BESYLATE 5 MG TAB PO SCH (10:00)
[2022-09-25] MEDS: ASPirin-EC 81 mg tab PO SCH (10:00)
[2022-09-25] MEDS ORDERED: PIPERACILLIN-TAZOB 3.375GM 100 ML IV ONE (12:00)
[2022-09-25] MEDS: METOPROLOL TARTRATE 50 MG TAB PO SCH ×2 (12:45→17:55)
[2022-09-25 12:47] VITALS: BP 136/57
[2022-09-25] MEDS ORDERED: POTASSIUM CHL 20 Meq TABLET PO ONE (15:15)
[2022-09-25] MEDS: ALBUTEROL SULF 2.5 MG/0.5ML(0.5%) NEB SOLN NEB SCH ×2 (15:17→19:34)
[2022-09-25] MEDS: IPRATROPIUM BROM 0.5 MG/2.5ML INH SOL NEB SCH ×2 (15:17→19:34)
[2022-09-25 16:30] VITALS: BP 134/51
[2022-09-25 22:00] VITALS: BP 137/46
[2022-09-25] MEDS: PIPERACILLIN-TAZOB 3.375GM 100 ML IV SCH (22:58)
[2022-09-26] MEDS: ALBUTEROL SULF 2.5 MG/0.5ML(0.5%) NEB SOLN NEB SCH ×4 (00:17→18:24)
[2022-09-26] MEDS: IPRATROPIUM BROM 0.5 MG/2.5ML INH SOL NEB SCH ×4 (00:17→18:24)
[2022-09-26 05:00] VITALS: BP 139/47
[2022-09-26 05:26] LABS: Basophils # (auto) 0 10 ^3/uL (0-0.2); Basophils % (auto) 0.2 % (0.0-2.0); Eosinophils # (auto) 0.2 10 ^3/uL (0-0.8); Eosinophils % (auto) 0.5 % (0.0-7.0); Hematocrit 27.2 % (36.0-46.0); Hemoglobin 9.2 g/dL (12.2-16.2); Lymphocytes # (auto) 8.9 10 ^3/uL (0.4-5.4); Lymphocytes % (auto) 31.3 % (10.0-50.0); Mean Corpuscular Hemoglobin 31.2 pg (28.0-32.0); Mean Corpuscular Hgb Conc. 33.9 g/dL (32.0-36.0); Monocytes # (auto) 1.9 10 ^3/uL (0-1.3); Monocytes % (auto) 6.6 % (0.0-12.0); Neutrophils # (auto) 17.6 10 ^3/uL (1.6-8.6); Neutrophils % (auto) 61.4 % (37.0-80.0); Red Blood Cells 2.96 10^6/uL (4.0-5.20); Red Cell Distribution Width 13.3 % (11.8-14.3); White Blood Cell 28.6 10^3/uL (4.4-10.8)
[2022-09-26 05:36] LABS: BUN/Creatinine Ratio 17.4 (10.0-20.0); Calcium 8.3 mg/dL (8.5-10.1); Potassium 3.9 mmol/L (3.5-5.1)
[2022-09-26] MEDS: SODIUM CHLOR 0.9% PF (SALINE LOCK) 10ML VIAL/SYR IV SCH ×3 (05:58→21:57)
[2022-09-26] MEDS: LEVOTHYROXINE SODIUM 100 MCG TAB PO SCH (06:34)
[2022-09-26] MEDS: InsuLIN REG 1unit/0.01ml Soln (100units/ml) SC SCH ×4 (06:46→21:58)
[2022-09-26] MEDS: ACCU-CHEK COMFORT CURVE STRIP VI SCH ×4 (06:47→21:58)
[2022-09-26] MEDS: METOPROLOL TARTRATE 50 MG TAB PO SCH ×2 (08:00→18:00)
[2022-09-26 09:00] VITALS: BP_SYST 117; BP_SYST 133; BP_DIAS 50; BP_DIAS 64
[2022-09-26] MEDS: PIPERACILLIN-TAZOB 3.375GM 100 ML IV SCH ×2 (10:24→21:57)
[2022-09-26] MEDS: PANTOPRAZOLE 40 MG/10 ML VIAL INJ IV SCH (10:24)
[2022-09-26] MEDS: ATORVASTATIN 20 MG TAB PO SCH (10:29)
[2022-09-26] MEDS: ENOXAPARIN SOD 30 MG/0.3 ML SYRINGE SC SCH (10:29)
[2022-09-26] MEDS: ASPirin-EC 81 mg tab PO SCH (10:29)
[2022-09-26] MEDS: CLOPIDOGREL BISULFATE 75 MG TAB PO SCH (10:29)
[2022-09-26] MEDS: amLODIPine BESYLATE 5 MG TAB PO SCH (10:33)
[2022-09-26 13:00] VITALS: BP 139/40
[2022-09-26 16:50] VITALS: BP 150/56
[2022-09-26] MEDS: HYDROcodone-ACET 5/325MG TAB PO PRN (18:06)
[2022-09-26 22:00] VITALS: BP 105/51
[2022-09-27] MEDS: ALBUTEROL SULF 2.5 MG/0.5ML(0.5%) NEB SOLN NEB SCH ×3 (00:20→11:53)
[2022-09-27] MEDS: IPRATROPIUM BROM 0.5 MG/2.5ML INH SOL NEB SCH ×3 (00:20→11:53)
[2022-09-27 05:00] VITALS: BP 119/54
[2022-09-27] MEDS: ACCU-CHEK COMFORT CURVE STRIP VI SCH ×2 (06:19→11:30)
[2022-09-27] MEDS: InsuLIN REG 1unit/0.01ml Soln (100units/ml) SC SCH ×2 (06:21→11:30)
[2022-09-27] MEDS: LEVOTHYROXINE SODIUM 100 MCG TAB PO SCH (06:22)
[2022-09-27] MEDS: SODIUM CHLOR 0.9% PF (SALINE LOCK) 10ML VIAL/SYR IV SCH ×2 (06:22→14:00)
[2022-09-27 06:43] LABS: Basophils # (auto) 0.2 10 ^3/uL (0-0.2); Basophils % (auto) 0.6 % (0.0-2.0); Eosinophils # (auto) 0.3 10 ^3/uL (0-0.8); Hematocrit 25.1 % (36.0-46.0); Hemoglobin 8.5 g/dL (12.2-16.2); Lymphocytes # (auto) 8.6 10 ^3/uL (0.4-5.4); Lymphocytes % (auto) 31.6 % (10.0-50.0); Mean Corpuscular Hemoglobin 31.5 pg (28.0-32.0); Mean Corpuscular Hgb Conc. 33.8 g/dL (32.0-36.0); Mean Corpuscular Volume 93.1 fL (80.0-100.0); Monocytes # (auto) 1.5 10 ^3/uL (0-1.3); Monocytes % (auto) 5.6 % (0.0-12.0); Neutrophils # (auto) 16.6 10 ^3/uL (1.6-8.6); Neutrophils % (auto) 61.2 % (37.0-80.0); Nucleated Red Blood Cells % 1.6 %; Red Blood Cells 2.69 10^6/uL (4.0-5.20); Red Cell Distribution Width 13.9 % (11.8-14.3); White Blood Cell 27.2 10^3/uL (4.4-10.8)
[2022-09-27 06:56] LABS: Potassium 3.9 mmol/L (3.5-5.1)
[2022-09-27 07:03] LABS: BUN/Creatinine Ratio 14.1 (10.0-20.0); Calcium 8.2 mg/dL (8.5-10.1)
[2022-09-27 08:00] VITALS: BP 110/44
[2022-09-27] MEDS: METOPROLOL TARTRATE 50 MG TAB PO SCH (08:00)
[2022-09-27] MEDS: PANTOPRAZOLE 40 MG/10 ML VIAL INJ IV SCH (10:00)
[2022-09-27] MEDS: ASPirin-EC 81 mg tab PO SCH (10:03)
[2022-09-27] MEDS: PIPERACILLIN-TAZOB 3.375GM 100 ML IV SCH (10:03)
[2022-09-27] MEDS: CLOPIDOGREL BISULFATE 75 MG TAB PO SCH (10:03)
[2022-09-27] MEDS: ATORVASTATIN 20 MG TAB PO SCH (10:05)
[2022-09-27] MEDS: amLODIPine BESYLATE 5 MG TAB PO SCH (10:05)
[2022-09-27] MEDS: ENOXAPARIN SOD 30 MG/0.3 ML SYRINGE SC SCH (10:06)
[2022-09-27] MEDS: HYDROcodone-ACET 5/325MG TAB PO PRN (11:18)
[2022-09-27 12:00] VITALS: BP 124/51
[2022-09-27] MEDS ORDERED: DOXY-286 PO (13:07)
[2022-09-27 13:49] VITALS: BP 128/52
[2022-09-27 14:36] VITALS: BP 110/44
== END 2022-09-27 16:20 | disposition home or self-care (01) | DRG 178 ==
LOC: ER 10:23 → OVERFLOW 15:37 → WEST WING 21:08
PROVIDERS: ADMIT Nurse Practitioner Family; ATTEND Internal Medicine
DX: J69.0 Pneumonitis due to inhalation of food and vomit (principal); E87.1 Hypo-osmolality and hyponatremia; N17.9 Acute kidney failure, unspecified; J21.9 Acute bronchiolitis, unspecified; K74.60 Unspecified cirrhosis of liver; I12.9 Hypertensive chronic kidney disease with stage 1 through stage 4 chronic kidney disease, or unspecified chronic kidney disease; D64.9 Anemia, unspecified; E11.22 Type 2 diabetes mellitus with diabetic chronic kidney disease; E88.09 Other disorders of plasma-protein metabolism, not elsewhere classified; K21.9 Gastro-esophageal reflux disease without esophagitis; E03.9 Hypothyroidism, unspecified; Z20.822 Contact with and (suspected) exposure to COVID-19; D72.829 Elevated white blood cell count, unspecified; E87.6 Hypokalemia; N18.30 Chronic kidney disease, stage 3 unspecified; Z91.041 Radiographic dye allergy status; Z91.013 Allergy to seafood; Z88.8 Allergy status to other drugs, medicaments and biological substances; Z91.018 Allergy to other foods; Z83.3 Family history of diabetes mellitus; Z82.3 Family history of stroke; Z80.9 Family history of malignant neoplasm, unspecified; Z82.49 Family history of ischemic heart disease and other diseases of the circulatory system; Z85.6 Personal history of leukemia; Z87.891 Personal history of nicotine dependence; Z86.16 Personal history of COVID-19
CPT/HCPCS: 36415; 71045; 71250; 80048; 80053; 81001; 82306; 82570; 82962; 83036; 83605; 83735; 83880; 83935; 84156; 84300; 84484; 85007; 85025; 85027; 85379; 87040; 87426; 87804; 94640; 96365; 96366; C9113; G0378; J0696; J1815; J2543

== ENCOUNTER → 2022-12-25 | Outpatient (CLI) | payer OTHER ==
[~2022-12-25] MED LIST changes: -CEPH-509 PO; +DOXY-286 PO; +HYDR-4297 PO; -HYDR50TA15 PO; -LOSA-39 PO; +LOSA100T58 PO; -OMEGCAP2 PO
[2022-12-25 08:46] LABS: Hemoglobin 11.4 g/dL (12.2-16.2); Mean Corpuscular Hemoglobin 30.3 pg (28.0-32.0); Mean Corpuscular Hgb Conc. 32.7 g/dL (32.0-36.0); Mean Corpuscular Volume 92.7 fL (80.0-100.0); Red Blood Cells 3.78 10^6/uL (4.0-5.20); Red Cell Distribution Width 14.9 % (11.8-14.3); White Blood Cell 15.6 10^3/uL (4.4-10.8)
[2022-12-25 10:04] LABS: Albumin 3.6 g/dL (3.4-5.0); Anion Gap 4 (5-15); BUN/Creatinine Ratio 21.9 (10.0-20.0); Blood Urea Nitrogen 52 mg/dL (7-18); Calcium 8.9 mg/dL (8.5-10.1); Carbon Dioxide 24 mmol/L (21-32); Chloride 110 mmol/L (98-107); GFR African American 25 mL/min; GFR Non-African American 21 mL/min; Glucose 169 mg/dL (74-106); Magnesium 2.2 mg/dL (1.6-2.6); Potassium 4.9 mmol/L (3.5-5.1); Sodium 138 mmol/L (136-145); Uric Acid 6.8 mg/dL (2.6-6.0)
[2022-12-25 12:57] LABS: Band Neutrophils % (manual) 0; Basophils % (manual) 0 (0.0-2.0); Blast Cells 0; Eosinophils % (manual) 5 (0-7); Lymphocytes % (manual) 46 (10.0-50.0); Metamyelocytes % 0; Monocytes % (manual) 4 (0-12); Myelocytes % 0; Promyelocytes % 0; Reactive Lymphocytes 0
== END | disposition home or self-care (01) ==
LOC: LAB 08:22
PROVIDERS: ATTEND Internal Medicine Nephrology
DX: I12.9 Hypertensive chronic kidney disease with stage 1 through stage 4 chronic kidney disease, or unspecified chronic kidney disease (principal); N18.4 Chronic kidney disease, stage 4 (severe); E21.3 Hyperparathyroidism, unspecified; M10.071 Idiopathic gout, right ankle and foot
CPT/HCPCS: 36415; 80048; 80069; 82306; 83735; 83970; 84550; 85027; 86200

== ENCOUNTER → 2023-01-01 | Outpatient (CLI) | payer OTHER | END | disposition home or self-care (01) | LOC: LAB 10:45 | PROVIDERS: ATTEND Internal Medicine | DX: I10 Essential (primary) hypertension (principal) | CPT/HCPCS: 82274 ==

== ENCOUNTER → 2023-01-28 | Outpatient (CLI) | payer OTHER ==
[2023-01-28 08:48] LABS: Hemoglobin 11.1 g/dL (12.2-16.2); Red Cell Distribution Width 13.8 % (11.8-14.3)
[2023-01-28 08:58] LABS: Hematocrit 32.7 % (36.0-46.0); Mean Corpuscular Hemoglobin 30.2 pg (28.0-32.0); Mean Corpuscular Hgb Conc. 33.8 g/dL (32.0-36.0); Mean Corpuscular Volume 89.2 fL (80.0-100.0); Red Blood Cells 3.66 10^6/uL (4.0-5.20); White Blood Cell 21.6 10^3/uL (4.4-10.8)
[2023-01-28 09:07] LABS: Band Neutrophils % (manual) 0; Basophils % (manual) 0 (0.0-2.0); Blast Cells 0; Metamyelocytes % 0; Myelocytes % 0; Promyelocytes % 0
[2023-01-28 09:53] LABS: Thyroid Stimulating Hormone 0.34 uIU/mL (0.55-4.78)
[2023-01-28 09:54] LABS: Alanine Aminotransferase 16 U/L (7-40); Albumin 4.6 g/dL (3.2-4.8); Alkaline Phosphatase 101 U/L (46-116); Anion Gap 12.1 (5-15); Aspartate Aminotransferase 11 U/L (13-40); BUN/Creatinine Ratio 31.6 (10.0-20.0); Bilirubin, Total 0.3 mg/dL (0.2-1.0); Calcium 9.8 mg/dL (8.5-10.1); Carbon Dioxide 23.9 mmol/L (20-30); Chloride 94 mmol/L (98-107); Glucose 201 mg/dL (74-106); Potassium 4.2 mmol/L (3.5-5.1); Sodium 130 mmol/L (136-145)
[2023-01-28 09:55] LABS: Total Protein 7.2 g/dL (5.7-8.2)
[2023-01-28 10:03] LABS: Eosinophils % (manual) 4 (0-7); Lymphocytes % (manual) 61 (10.0-50.0); Monocytes % (manual) 4 (0-12); Platelet Estimate Adequate; Reactive Lymphocytes 4
[2023-01-28 10:46] LABS: Blood Urea Nitrogen 122 mg/dL (9-23)
== END | disposition home or self-care (01) ==
LOC: LAB 08:22
DX: E11.42 Type 2 diabetes mellitus with diabetic polyneuropathy (principal)
CPT/HCPCS: 36415; 80053; 83615; 84439; 84443; 85007; 85027

== ENCOUNTER → 2023-05-28 | Outpatient (CLI) | payer OTHER ==
[2023-05-28 09:14] LABS: Anion Gap 7 (5-15); Carbon Dioxide 22 mmol/L (20-30); Chloride 108 mmol/L (98-107); Potassium 4.8 mmol/L (3.5-5.1); Sodium 137 mmol/L (136-145)
[2023-05-28 09:20] LABS: BUN/Creatinine Ratio 17.6 (10.0-20.0); Blood Urea Nitrogen 44 mg/dL (9-23); Glucose 58 mg/dL (74-106)
== END | disposition home or self-care (01) ==
LOC: LAB 08:37
PROVIDERS: ATTEND Internal Medicine Nephrology
DX: N18.31 Chronic kidney disease, stage 3a (principal)
CPT/HCPCS: 36415; 80048

== ENCOUNTER → 2023-09-30 | Outpatient (CLI) | payer OTHER ==
[~2023-09-30] MED LIST changes: -GLIP5TAB12 PO; +GLIP5TAB21 PO; -HYDR-4297 PO; +HYDR50TA47 PO; +LOSA-535 PO; -LOSA100T58 PO
[2023-09-30 08:36] LABS: Chloride 103 mmol/L (98-107); Potassium 4.7 mmol/L (3.5-5.1); Sodium 138 mmol/L (136-145)
[2023-09-30 08:37] LABS: Anion Gap 12 (5-15); Carbon Dioxide 23 mmol/L (20-30)
[2023-09-30 08:38] LABS: Calcium 10.1 mg/dL (8.5-10.1)
[2023-09-30 08:43] LABS: BUN/Creatinine Ratio 27.2 (10.0-20.0); Glucose 104 mg/dL (74-106)
[2023-09-30 09:34] LABS: Blood Urea Nitrogen 82 mg/dL (9-23)
== END | disposition home or self-care (01) ==
LOC: LAB 08:04
PROVIDERS: ATTEND Internal Medicine Nephrology
DX: N18.31 Chronic kidney disease, stage 3a (principal)
CPT/HCPCS: 36415; 80048

== ENCOUNTER → 2023-10-20 | Outpatient (CLI) | payer OTHER ==
[2023-10-20 07:59] LABS: Urine Bacteria None Seen /hpf (None Seen)
[2023-10-20 08:01] LABS: Hematocrit 33.1 % (36.0-46.0); Hemoglobin 10.7 g/dL (12.2-16.2); Mean Corpuscular Hemoglobin 29.6 pg (28.0-32.0); Mean Corpuscular Hgb Conc. 32.4 g/dL (32.0-36.0); Mean Corpuscular Volume 91.4 fL (80.0-100.0); Red Blood Cells 3.62 10^6/uL (4.0-5.20); Red Cell Distribution Width 14.6 % (11.8-14.3); White Blood Cell 18.8 10^3/uL (4.4-10.8)
[2023-10-20 08:05] LABS: Band Neutrophils % (manual) 0; Basophils % (manual) 0 (0.0-2.0); Blast Cells 0; Metamyelocytes % 0; Myelocytes % 0; Promyelocytes % 0
[2023-10-20 08:19] LABS: Urine Blood Negative /uL (Negative); Urine Clarity Clear (Clear); Urine Color Light-Yellow (Yellow); Urine Protein, UAD Negative (Negative); Urine Specific Gravity 1.008 (1.001-1.035); Urine Urobilinogen Normal (Negative); Urine WBC 1 /hpf (0 - 5); Urine pH 5.5 (5.0-9.0)
[2023-10-20 08:30] LABS: Chloride 102 mmol/L (98-107); Potassium 4.5 mmol/L (3.5-5.1); Sodium 137 mmol/L (136-145)
[2023-10-20 08:31] LABS: Anion Gap 9 (5-15); Carbon Dioxide 26 mmol/L (20-30)
[2023-10-20 08:32] LABS: Calcium 10.5 mg/dL (8.5-10.1)
[2023-10-20 08:36] LABS: Glucose 79 mg/dL (74-106)
[2023-10-20 08:37] LABS: BUN/Creatinine Ratio 30.3 (10.0-20.0)
[2023-10-20 09:00] LABS: Blood Urea Nitrogen 89 mg/dL (9-23)
[2023-10-20 10:33] LABS: Eosinophils % (manual) 2 (0-7); Lymphocytes % (manual) 55 (10.0-50.0); Monocytes % (manual) 7 (0-12); Platelet Estimate Adequate; Reactive Lymphocytes 4
== END | disposition home or self-care (01) ==
LOC: LAB 07:52
PROVIDERS: ATTEND Internal Medicine
DX: E11.22 Type 2 diabetes mellitus with diabetic chronic kidney disease (principal)
CPT/HCPCS: 36415; 80048; 81001; 82043; 84439; 84443; 85007; 85027

== ENCOUNTER 2023-12-02 14:45 | Inpatient (IN) | payer OTHER ==
[~2023-12-02] VITALS: Ht 149.9 cm; Wt 57.4 kg
[2023-12-02 15:44] LABS: Basophils # (auto) 0.1 10 ^3/uL (0-0.2); Basophils % (auto) 0.8 % (0.0-2.0); Eosinophils # (auto) 0.3 10 ^3/uL (0-0.8); Eosinophils % (auto) 1.9 % (0.0-7.0); Hematocrit 32.8 % (36.0-46.0); Hemoglobin 10.8 g/dL (12.2-16.2); Lymphocytes # (auto) 8.2 10 ^3/uL (0.4-5.4); Lymphocytes % (auto) 44.8 % (10.0-50.0); Mean Corpuscular Hemoglobin 29.8 pg (28.0-32.0); Mean Corpuscular Hgb Conc. 32.8 g/dL (32.0-36.0); Mean Corpuscular Volume 90.6 fL (80.0-100.0); Monocytes # (auto) 1.2 10 ^3/uL (0-1.3); Monocytes % (auto) 6.7 % (0.0-12.0); Neutrophils # (auto) 8.4 10 ^3/uL (1.6-8.6); Neutrophils % (auto) 45.8 % (37.0-80.0); Nucleated Red Blood Cells % 0.1 %; Red Blood Cells 3.62 10^6/uL (4.0-5.20); Red Cell Distribution Width 14.4 % (11.8-14.3); White Blood Cell 18.4 10^3/uL (4.4-10.8)
[2023-12-02] MEDS: SODIUM CHLORIDE 0.9% 1,000 ML IVB ONE (15:51)
[2023-12-02 15:57] LABS: Alanine Aminotransferase 25 U/L (7-40); Albumin 4.5 g/dL (3.2-4.8); Alkaline Phosphatase 152 U/L (46-116); Anion Gap 10 (5-15); Aspartate Aminotransferase 21 U/L (13-40); BUN/Creatinine Ratio 26.6 (10.0-20.0); Bilirubin, Total 0.2 mg/dL (0.2-1.0); Blood Urea Nitrogen 75 mg/dL (9-23); Calcium 8.8 mg/dL (8.5-10.1); Carbon Dioxide 21 mmol/L (20-30); Chloride 101 mmol/L (98-107); Glucose 105 mg/dL (74-106); Potassium 4.3 mmol/L (3.5-5.1); Sodium 132 mmol/L (136-145); Total Protein 6.6 g/dL (5.7-8.2)
[2023-12-02 16:52] LABS: INR 0.98 (0.9-1.15); Prothrombin Time 10.4 sec (9.3-11.8)
[2023-12-02] MEDS: cefTRIAXone 1GM/50ML D5W 50 ML IV ONE (17:59)
[2023-12-02] MEDS: AZITHROMYCIN 500MG/ 250ML 250 ML IV ONE (18:38)
[2023-12-02 19:43] LABS: Urine Bacteria None Seen /hpf (None Seen)
[2023-12-02 20:08] LABS: Urine Blood Negative /uL (Negative); Urine Clarity Clear (Clear); Urine Color Light-Yellow (Yellow); Urine Protein, UAD TRACE (Negative); Urine Specific Gravity 1.008 (1.001-1.035); Urine Urobilinogen Normal (Negative); Urine WBC 5 /hpf (0 - 5); Urine pH 5.5 (5.0-9.0)
[2023-12-02 20:31] LABS: Amphetamine Screen, Urine Neg (NEGATIVE); Barbiturate Scree,Urine Neg (NEGATIVE); Benzodiazephine Screen, Urine Neg (NEGATIVE); Cannabinoid Screen, Urine Neg (NEGATIVE); Cocaine Screen, Urine Neg (NEGATIVE); Opiate Scree,Urine Neg (NEGATIVE); Phencyclidine Screen, Urine Neg (NEGATIVE)
[2023-12-02] MEDS ORDERED: ALBUTEROL SULF 2.5 MG/0.5ML(0.5%) NEB SOLN NEB PRN (21:45)
[2023-12-02] MEDS ORDERED: DEXTROSE (50%) 50ML SYRG IV PRN (21:45)
[2023-12-02] MEDS ORDERED: ACETAMINOPHEN 325 MG TAB PO PRN (21:45)
[2023-12-02] MEDS ORDERED: ONDANSETRON HCL 4 MG/2 ML VIAL IV PRN (21:45)
[2023-12-02] MEDS: ATORVASTATIN 20 MG TAB PO SCH (22:00)
[2023-12-02] MEDS: ACCU-CHEK COMFORT CURVE STRIP VI SCH (22:00)
[2023-12-02] MEDS: InsuLIN REG 1unit/0.01ml Soln (100units/ml) SC SCH (22:00)
[2023-12-02] MEDS ORDERED: NITROGLYCERIN 0.4 MG SL TAB SL PRN (23:00)
[2023-12-02] MEDS ORDERED: MORPHINE SULFATE INJ 2 MG/ml SYRG IV PRN (23:00)
[2023-12-03] VITALS (10 sets, daily range): BP systolic 116–160; BP diastolic 50–55; PULSE 67–152; RESP 16–22; TEMP 36.6; O2SAT 91–98
[2023-12-03] MEDS: GABAPENTIN 300 MG CAP PO SCH (00:05)
[2023-12-03 05:53] LABS: Basophils # (auto) 0.1 10 ^3/uL (0-0.2); Basophils % (auto) 0.7 % (0.0-2.0); Eosinophils # (auto) 0.2 10 ^3/uL (0-0.8); Eosinophils % (auto) 1.1 % (0.0-7.0); Hemoglobin 9.9 g/dL (12.2-16.2); Lymphocytes # (auto) 5.5 10 ^3/uL (0.4-5.4); Lymphocytes % (auto) 34.1 % (10.0-50.0); Mean Corpuscular Hemoglobin 29.7 pg (28.0-32.0); Mean Corpuscular Volume 90.1 fL (80.0-100.0); Monocytes % (auto) 6.4 % (0.0-12.0); Neutrophils # (auto) 9.2 10 ^3/uL (1.6-8.6); Neutrophils % (auto) 57.7 % (37.0-80.0); Nucleated Red Blood Cells % 0.1 %; Red Blood Cells 3.33 10^6/uL (4.0-5.20); Red Cell Distribution Width 14.2 % (11.8-14.3)
[2023-12-03 06:08] LABS: Chloride 103 mmol/L (98-107); Sodium 136 mmol/L (136-145)
[2023-12-03 06:09] LABS: Anion Gap 11 (5-15); Carbon Dioxide 22 mmol/L (20-30)
[2023-12-03 06:10] LABS: Calcium 8.8 mg/dL (8.7-10.4)
[2023-12-03 06:14] LABS: BUN/Creatinine Ratio 22.4 (10.0-20.0); Glucose 115 mg/dL (74-106)
[2023-12-03] MEDS: LEVOTHYROXINE SODIUM 100 MCG TAB PO SCH (06:14)
[2023-12-03 06:20] LABS: Blood Urea Nitrogen 58 mg/dL (9-23)
[2023-12-03] MEDS ORDERED: cefTRIAXone 1GM/50ML D5W 50 ML IV SCH (09:00)
[2023-12-03] MEDS: PANTOPRAZOLE 40 MG TAB PO ONE (10:00)
[2023-12-03] MEDS: ASPirin 81 mg TAB PO SCH (10:04)
[2023-12-03] MEDS: CLOPIDOGREL BISULFATE 75 MG TAB PO SCH (10:06)
[2023-12-03] MEDS: amLODIPine BESYLATE 5 MG TAB PO SCH (10:07)
[2023-12-03] MEDS: PIPERACILLIN-TAZOB 3.375GM 100 ML IV SCH (11:19)
[2023-12-03] MEDS ORDERED: AZIT-43 PO (17:04)
[2023-12-03] MEDS ORDERED: AZITHROMYCIN 500MG/ 250ML 250 ML IV SCH (21:00)
[2023-12-04] MEDS ORDERED: PANTOPRAZOLE 40 MG TAB PO SCH (06:00)
[2023-12-04 11:45] LABS: Folate (Folic Acid) 41.15 ng/mL (>5.38)
== END 2023-12-03 20:00 | disposition home or self-care (01) | DRG 306 ==
LOC: ER 14:45 → TELE 22:49 → TELE-WESTW 12-03 01:40
PROVIDERS: ADMIT Nurse Practitioner; ATTEND Nurse Practitioner
DX: I35.0 Nonrheumatic aortic (valve) stenosis (principal); J15.69 Pneumonia due to other Gram-negative bacteria; J69.0 Pneumonitis due to inhalation of food and vomit; N17.9 Acute kidney failure, unspecified; C91.10 Chronic lymphocytic leukemia of B-cell type not having achieved remission; N18.4 Chronic kidney disease, stage 4 (severe); K21.9 Gastro-esophageal reflux disease without esophagitis; D63.1 Anemia in chronic kidney disease; I12.9 Hypertensive chronic kidney disease with stage 1 through stage 4 chronic kidney disease, or unspecified chronic kidney disease; E11.22 Type 2 diabetes mellitus with diabetic chronic kidney disease; E03.9 Hypothyroidism, unspecified; J44.9 Chronic obstructive pulmonary disease, unspecified; E78.5 Hyperlipidemia, unspecified; Z91.041 Radiographic dye allergy status; Z91.013 Allergy to seafood; Z91.09 Other allergy status, other than to drugs and biological substances; Z79.899 Other long term (current) drug therapy; Z79.82 Long term (current) use of aspirin; Z87.891 Personal history of nicotine dependence; Z91.018 Allergy to other foods; Z82.49 Family history of ischemic heart disease and other diseases of the circulatory system; Z83.3 Family history of diabetes mellitus; Z79.02 Long term (current) use of antithrombotics/antiplatelets
CPT/HCPCS: 36415; 70450; 71046; 71250; 80048; 80053; 80307; 81001; 82270; 82306; 82607; 82746; 82962; 83036; 83605; 83735; 84443; 84484; 85025; 85379; 85610; 85730; 87040; 93005; 93306; 93886; 93970; G0378; J1815; J2543

== ENCOUNTER → 2024-04-01 | Outpatient (CLI) | payer OTHER ==
[~2024-04-01] MED LIST changes: -AML5T PO; +AZIT-43 PO; -DOXY-286 PO; -LEV100T PO; +LEVO-849 PO; -LOSA-535 PO
[2024-04-01 07:23] LABS: Basophils # (auto) 0.1 10 ^3/uL (0-0.2); Basophils % (auto) 0.7 % (0.0-2.0); Eosinophils # (auto) 0.4 10 ^3/uL (0-0.8); Eosinophils % (auto) 2.7 % (0.0-7.0); Hematocrit 35.5 % (36.0-46.0); Hemoglobin 11.5 g/dL (12.2-16.2); Lymphocytes # (auto) 7.5 10 ^3/uL (0.4-5.4); Lymphocytes % (auto) 47.9 % (10.0-50.0); Mean Corpuscular Hemoglobin 28.5 pg (28.0-32.0); Mean Corpuscular Hgb Conc. 32.4 g/dL (32.0-36.0); Mean Corpuscular Volume 87.9 fL (80.0-100.0); Monocytes # (auto) 0.7 10 ^3/uL (0-1.3); Monocytes % (auto) 4.6 % (0.0-12.0); Neutrophils # (auto) 6.9 10 ^3/uL (1.6-8.6); Neutrophils % (auto) 44.1 % (37.0-80.0); Nucleated Red Blood Cells % 0.1 %; Platelet Count (auto) 389 10^3/uL (140-450); Red Blood Cells 4.04 10^6/uL (4.0-5.20); Red Cell Distribution Width 16.1 % (11.8-14.3); White Blood Cell 15.8 10^3/uL (4.4-10.8)
[2024-04-01 08:04] LABS: Alanine Aminotransferase 17 U/L (7-40); Albumin 4.6 g/dL (3.2-4.8); Alkaline Phosphatase 82 U/L (46-116); Anion Gap 9 (5-15); Aspartate Aminotransferase 13 U/L (13-40); Blood Urea Nitrogen 64 mg/dL (9-23); Calcium 9.9 mg/dL (8.7-10.4); Carbon Dioxide 27 mmol/L (20-31); Chloride 102 mmol/L (98-107); Glucose 145 mg/dL (74-106); Magnesium 2.5 mg/dL (1.6-2.6); Potassium 4.9 mmol/L (3.5-5.1); Sodium 138 mmol/L (136-145)
[2024-04-01 08:05] LABS: Bilirubin, Total 0.3 mg/dL (0.2-1.0); Phosphorus 4.2 mg/dL (2.4-5.1); Total Protein 7.3 g/dL (5.7-8.2)
== END | disposition home or self-care (01) ==
LOC: LAB 06:56
PROVIDERS: ATTEND Internal Medicine Nephrology
DX: N18.30 Chronic kidney disease, stage 3 unspecified (principal); D63.1 Anemia in chronic kidney disease; N39.0 Urinary tract infection, site not specified; R80.9 Proteinuria, unspecified
CPT/HCPCS: 36415; 80053; 82306; 83735; 84100; 85025

== ENCOUNTER → 2024-05-31 | Outpatient (CLI) | payer OTHER ==
[2024-05-31 09:36] LABS: Basophils # (auto) 0.1 10 ^3/uL (0-0.2); Basophils % (auto) 0.4 % (0.0-2.0); Eosinophils # (auto) 0.3 10 ^3/uL (0-0.8); Eosinophils % (auto) 1.5 % (0.0-7.0); Lymphocytes # (auto) 7.2 10 ^3/uL (0.4-5.4); Lymphocytes % (auto) 36.1 % (10.0-50.0); Mean Corpuscular Hemoglobin 29.9 pg (28.0-32.0); Mean Corpuscular Hgb Conc. 33.3 g/dL (32.0-36.0); Mean Corpuscular Volume 89.9 fL (80.0-100.0); Monocytes # (auto) 1.2 10 ^3/uL (0-1.3); Monocytes % (auto) 5.8 % (0.0-12.0); Neutrophils # (auto) 11.2 10 ^3/uL (1.6-8.6); Neutrophils % (auto) 56.2 % (37.0-80.0); Platelet Count (auto) 432 10^3/uL (140-450); Red Blood Cells 3.68 10^6/uL (4.0-5.20); Red Cell Distribution Width 16.3 % (11.8-14.3)
[2024-05-31 09:42] LABS: Alanine Aminotransferase 16 U/L (7-40); Albumin 4.6 g/dL (3.2-4.8); Alkaline Phosphatase 93 U/L (46-116); Anion Gap 15 (5-15); Aspartate Aminotransferase 15 U/L (13-40); BUN/Creatinine Ratio 17.7 (10.0-20.0); Bilirubin, Total 0.3 mg/dL (0.2-1.0); Calcium 10.2 mg/dL (8.7-10.4); Carbon Dioxide 22 mmol/L (20-31); Potassium 4.6 mmol/L (3.5-5.1)
[2024-05-31 09:43] LABS: Total Protein 7.5 g/dL (5.7-8.2)
[2024-05-31 09:51] LABS: Blood Urea Nitrogen 70 mg/dL (9-23); Chloride 97 mmol/L (98-107); Glucose 180 mg/dL (74-106); Sodium 134 mmol/L (136-145)
== END | disposition home or self-care (01) ==
LOC: LAB 08:42
PROVIDERS: ATTEND Licensed Practical Nurse
DX: E11.22 Type 2 diabetes mellitus with diabetic chronic kidney disease (principal); E11.42 Type 2 diabetes mellitus with diabetic polyneuropathy; N18.4 Chronic kidney disease, stage 4 (severe)
CPT/HCPCS: 36415; 80053; 85025

== ENCOUNTER → 2024-06-10 | Outpatient (CLI) | payer OTHER ==
[2024-06-10 08:22] LABS: Alanine Aminotransferase 19 U/L (7-40); Albumin 4.8 g/dL (3.2-4.8); Anion Gap 14 (5-15); Aspartate Aminotransferase 16 U/L (13-40); BUN/Creatinine Ratio 22.8 (10.0-20.0); Carbon Dioxide 27 mmol/L (20-31); Sodium 137 mmol/L (136-145)
[2024-06-10 08:23] LABS: Total Protein 7.4 g/dL (5.7-8.2)
[2024-06-10 08:28] LABS: Hematocrit 32.2 % (36.0-46.0); Hemoglobin 10.5 g/dL (12.2-16.2); Mean Corpuscular Hemoglobin 29.1 pg (28.0-32.0); Mean Corpuscular Hgb Conc. 32.7 g/dL (32.0-36.0); Mean Corpuscular Volume 88.7 fL (80.0-100.0); Platelet Count (auto) 549 10^3/uL (140-450); Red Blood Cells 3.62 10^6/uL (4.0-5.20); Red Cell Distribution Width 15.7 % (11.8-14.3); White Blood Cell 27.8 10^3/uL (4.4-10.8)
[2024-06-10 08:30] LABS: Band Neutrophils % (manual) 0; Basophils % (manual) 0 (0.0-2.0); Blast Cells 0; Myelocytes % 0; Promyelocytes % 0; Reactive Lymphocytes 0
[2024-06-10 08:38] LABS: Chloride 96 mmol/L (98-107); Glucose 159 mg/dL (74-106)
[2024-06-10 08:39] LABS: Alkaline Phosphatase 122 U/L (46-116); Bilirubin, Total < 0.2 mg/dL (0.2-1.0); Calcium 10.4 mg/dL (8.7-10.4)
[2024-06-10 08:41] LABS: Blood Urea Nitrogen 85 mg/dL (9-23)
[2024-06-10 09:00] LABS: Eosinophils % (manual) 4 (0-7); Lymphocytes % (manual) 41 (10.0-50.0); Metamyelocytes % 1; Monocytes % (manual) 1 (0-12); Platelet Estimate Increased
== END | disposition home or self-care (01) ==
LOC: LAB 07:41
PROVIDERS: ATTEND Internal Medicine
DX: J18.9 Pneumonia, unspecified organism (principal)
CPT/HCPCS: 36415; 80053; 85007; 85027

== ENCOUNTER 2025-03-15 10:36 | Inpatient (IN) | payer OTHER ==
[~2025-03-15] VITALS: Ht 154.9 cm; Wt 59.5 kg
--- NOTE | 2025-03-15 11:04 | ECG ---
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
--- NOTE | 2025-03-15 11:13 | ED.PDOC ---
History of Present Illness HPI Comments 79F presents to the ER in a wheelchair and w/ prior MHx of HTN, DM, CKF, COPD: SHx of right ankle sx and the c/c of SOB.Pt reports on on having SOB for the past 2 weeks associated w/ coughing green phglem. Pt saw here PCP at [facility] today and was told to go to the ER. In triage the pt had SAT of 93% RA and was put on 2L via NC. Denies any other symptoms at this time. Denies chills, fever, N/V/D, CP. Denies any other associated symptom's, modifiers, or recent injuries or sick contact at this time. Chief Complaint: Shortness of Breath Time Seen by MD: 11:10 Primary Care Provider: GILMER Reviewed Notes: Nurses Notes, Medications, Allergies Allergies: Coded Allergies: Cortisone (Verified Allergy, Unknown, 11/10/17) Iodine (Verified Allergy, Unknown, 11/10/17) Shellfish Allergy (Verified Allergy, Unknown, 11/10/17) Uncoded Allergies: strawberries (Allergy, Unknown, 11/10/17) Home Meds Active Scripts Azithromycin (Azithromycin) 250 Mg Tab, 250 MG PO DAILY MDD 500 for 5 Days, #6 TAB 0 Refills 2 TABLETS ORALLY ON DAY ONE, THEN 1 TABLET ORALLY DAILY FOR 4 DAYS Prov:TAMRA LANDIS 12/03/23 Meclizine HCl (Meclizine) 25 Mg Chw, 25 MG PO DAILY for 7 Days, #7 CHW Prov:ANGELIQUE BARNARD MD 10/01/21 Zinc Sulfate (Zinc Sulfate) 220 Mg Tab, 220 MG PO DAILY for 30 Days, #30 TAB Prov:CHAVEZ GRANADOS MD 05/17/21 Cholecalciferol (Vitamin D3 Super Strength) 2,000 Unit Cap, 4000 UNIT PO DAILY for 30 Days, #60 CAP Prov:CHAVEZ GRANADOS MD 05/17/21 Ascorbic Acid (Gnp Vitamin C W/Yoselyn Hips) 1,000 Mg Tab, 1000 MG PO DAILY for 10 Days, #10 TAB Prov:CHAVEZ GRANADOS MD 05/17/21 Albuterol Sulfate (VENTOLIN MDI) 90 Mcg Ih, 180 MCG IN TIDPRN PRN, #1 INH Prov:CHAVEZ GRANADOS MD 05/17/21 Reported Medications Metoprolol Tartrate (LOPRESSOR TABLET) 50 Mg Tb, 1 TAB PO BIDWM 05/14/21 Atorvastatin Calcium (ATORVASTATIN CALCIUM) 20 Mg Tab, 1 TAB PO DAILY 05/14/21 Alendronate Sodium (Alendronate Sodium) 70 Mg Tab, 1 TAB PO QWEEKLY 05/14/21 Gabapentin (Gabapentin) 600 Mg Tab, 1 TAB PO BID 05/14/21 Hydralazine Hcl (Hydralazine Hcl) 50 Mg Tab, 1 TAB PO TID WITH FOOD 05/14/21 Psyllium (Metamucil) Unknown Strength Cap, PO PRN 05/14/21 Multiple Vitamin (Multivitamins) Cap, 1 CAP PO DAILY WOMEN 50+ 01/12/18 Clopidogrel Bisulfate (CLOPIDOGREL) 75 Mg Tab, 75 MG PO DAILY 11/18/17 Aspirin (Aspirin Low Dose) 81 Mg Tab, 81 MG PO DAILY 11/18/17 Glipizide (Glipizide) 5 Mg Tab, 5 MG PO BID 08/01/15 Levothyroxine Sodium (SYNTHROID TABLET) 100 Mcg Tb, 100 MG PO QAM 06/03/13 Metformin Hydrochloride (Metformin Hcl) 500 Mg Tab, 500 MG PO BID, TAB 06/03/13 Information Source: Patient Mode of Arrival: Wheelchair Severity: Moderate Timing: Weeks Duration: Since onset Prehospital treatment: None Past Medical History PAST MEDICAL HISTORY: COPD, DM, GERD, High Lipids, HTN, Thyroid Surgical History (Other): right ankle Sx YARN SORTER History: No Pertinent YARN SORTER History Family History Family History: Reviewed,noncontributory to illness, Family hx of DM, Family hx of heart michael Family History (Other): Family Hx of CKF Social History Smoker: Quit Greater Than 1 Year Alcohol: Denies ETOH Use Drugs: Denies Drug Use Lives In: Home Constitutional: denies: chills, diaphoresis, fatigue, fever, malaise, sweats, weakness, others EENTM: denies: blurred vision, double vision, ear bleeding, ear discharge, ear drainage, ear pain, ear ringing, eye pain, eye redness, hearing loss, mouth pain, mouth swelling, nasal discharge, nose bleeding, nose congestion, nose pain, photophobia, tearing, throat pain, throat swelling, voice changes, others Respiratory: reports: cough, shortness of breath; denies: hemoptysis, orthopnea, SOB at rest, SOB with excertion, stridor, wheezing, others Cardiovascular: denies: chest pain, dizzy spells, diaphoresis, Dyspnea on exertion, edema, irregular heart beat, left arm pain, lightheadedness, palpitations, PND, syncope, others Gastrointestinal: denies: abdomen distended, abdominal pain, blood streaked bowels, constipated, diarrhea, dysphagia, difficulty swallowing, hematemesis, melena, nausea, poor appetite, poor fluid intake, rectal bleeding, rectal pain, vomiting, others Genitourinary: denies: abnormal vagina bleeding, burning, dyspareunia, dysuria, flank pain, frequency, hematuria, incontinence, pain, , vagina discharge, urgency, others Neurological: denies: dizziness, fainting, headache, left sided numbness, left sided weakness, numbness, paresthesia, pre-existing deficit, right sided numbness, right sided weakness, seizure, speech problems, tingling, tremors, weakness, others Musculoskeletal: denies: back pain, gout, joint pain, joint swelling, muscle pain, muscle stiffness, neck pain, others Integumetry: denies: bruises, change in color, change in hair/nails, dryness, laceration, lesions, lumps, rash, wounds, others Allergic/Immunocompromised: denies: Difficulty Healing, Frequent Infections, Hives, Itching, others Hematologic/Lymphatic: denies: anemia, blood clots, easy bleeding, easy bruising, swollen glands, others Endocrine: denies: excessive hunger, excessive sweating, excessive thirst, excessive urination, flushing, intolerance to cold, intolerance to heat, unexplained weight gain, unexplained weight loss, others Psychiatric: denies: anxiety, bipolar disorder, depression, hopeless, panic disorder, schizophrenia, sleepless, suicidal, others All Other Systems: Reviewed and Negative Physical Exam General Appearance: Moderate Distress HEENT: Normal ENT Inspection, Pharynx Normal, TMs Normal Neck: Full Range of Motion, Non-Tender, Normal, Normal Inspection Respiratory: Chest Non-Tender, Decreased Breath Sounds, No Accessory Muscle Use, Rales Cardiovascular: No Edema, No JVD, No Murmur, No Gallop, Normal Peripheral Pulses, Regular Rate/Rhythm Breast Exam: Deferred Gastrointestinal: No Organomegaly, Non Tender, No Pulsatile Mass, Normal Bowel Sounds, Soft Genitalia: Deferred Pelvic: Deferred Rectal: Deferred Extremities: No calf tenderness, Normal capillary refill, Normal inspection, Normal range of motion, Non-tender, No pedal edema Musculoskeletal : Apperance: Normal Neurologic: Alert, toy stuffer II-XII nml as Tested, No Motor Deficits, Normal Affect, Normal Mood, No Sensory Deficits Cerebellar Function: Normal Reflexes: Normal Skin: Dry, Normal Color, Warm Lymphatic: No Adenopathy Was a procedure done? Was a procedure done?: No EKG EKG : Pulse Rate (adult): 62 [place]: Normal Cardiac Rhythm: NSR Block: None Hypertrophy: LAE ST: Nonsp Differential Dx Considerations may include: ACS, MT, pleural effusions, acute on chronic diastolic heart failure X-Ray, Labs, Meds, VS Vital Signs Date Time Temp Pulse Resp B/P (MAP) Pulse Ox O2 Delivery O2 Flow Rate FiO2 03/15/25 10:51 62 03/15/25 10:37 97.0 61 20 155/55 93 97.0 Lab Test 03/15/25 11:19 03/15/25 10:55 Range/Units Lactic Acid Level 1.0 0.4-2.0 mmol/L White Blood Count 15.0 H 4.4-10.8 10^3/uL Red Blood Count 4.16 4.0-5.20 10^6/uL Hemoglobin 12.3 12.2-16.2 g/dL Hematocrit 37.2 36.0-46.0 % Mean Corpuscular Volume 89.4 80.0-100.0 fL Mean Corpuscular Hemoglobin 29.5 28.0-32.0 pg Mean Corpuscular Hemoglobin Concent 33.0 32.0-36.0 g/dL Red Cell Distribution Width 17.8 H 11.8-14.3 % Platelet Count 297 140-450 10^3/uL Mean Platelet Volume 7.2 6.9-10.8 fL Neutrophils (%) (Auto) 53.8 37.0-80.0 % Lymphocytes (%) (Auto) 40.2 10.0-50.0 % Monocytes (%) (Auto) 4.3 0.0-12.0 % Eosinophils (%) (Auto) 1.1 0.0-7.0 % Basophils (%) (Auto) 0.6 0.0-2.0 % Neutrophils # (Auto) 8.1 1.6-8.6 10 ^3/uL Lymphocytes # (Auto) 6.0 H 0.4-5.4 10 ^3/uL Monocytes # (Auto) 0.6 0-1.3 10 ^3/uL Eosinophils # (Auto) 0.2 0-0.8 10 ^3/uL Basophils # (Auto) 0.1 0-0.2 10 ^3/uL Nucleated Red Blood Cells 0.1 % Sodium Level 140 136-145 mmol/L Potassium Level 5.0 3.5-5.1 mmol/L Chloride Level 103 98-107 mmol/L Carbon Dioxide Level 27 20-31 mmol/L Anion Gap 10 5-15 Blood Urea Nitrogen 26 H 9-23 mg/dL Creatinine 2.79 H 0.550-1.02 mg/dL Glomerular Filtration Rate Calc 17 >90 mL/min BUN/Creatinine Ratio 9.3 L 10.0-20.0 Serum Glucose 121 H 74-106 mg/dL Calcium Level 9.8 8.7-10.4 mg/dL Troponin I High Sensitivity 6 </=34 ng/L B-Type Natriuretic Peptide 266.38 0-100 pg/mL Current Medications Medications (Trade) Dose Ordered Sig/Erlinda Route Start Time Stop Time Status Last Admin Methylprednisolone Sodium Succinate (Solu Medrol) 125 mg ONCE ONCE IV 03/15/25 11:15 03/15/25 11:21 DC 03/15/25 13:08 IV Hep-Lock was established The patient was given Solu-Medrol 125 mg IV push The BNP is 266.38 The [place] [address] The lactic acid level is one Chemistry panel shows a BUN of 26 and a creatinine of 2.79 The chest x-ray shows: IMPRESSION: Cardiomegaly with pulmonary vascular congestion and bilateral patchy airspace opacities. Moderate right and small left pleural effusions. Based on the chest x-ray the patient is also being given Lasix 40 mg IV push The patient will be admitted to the hospitalist Images Reviewed?: Images reviewed and evaluated by me Time of 1ST Reevaluation: 11:40 Reevaluation 1ST: Unchanged Patient Education/Counseling: Diagnosis, Treatment, Prognosis Family Education/Counseling: No Family Present SEPSIS Sepsis Screen Date sepsis recognized/suspect: Mar 15, 2025 Time Sepsis recognized/suspect: 1039 Recent Procedure: No On Antibiotic Therapy: No Respiratory Rate >20: No Heart Rate >90: No Temp<36 C (96.8 F) or >38.3 C: No SBP <90 or MAP <65 mmHG: No New Acute Mental Status Change: No Is the patient on CPAP, BIPAP,: No Physician Orders Urinalysis (03/15/25 11:01) Heplock Iv (03/15/25 11:01) Pulse Oximetry (03/15/25 11:01) Oxygen (03/15/25 11:01) Termite Exterminator Helper (03/15/25 11:01) Blood Pressure (03/15/25 11:01) Chest Two Views Routine (03/15/25 11:01) Blood Culture (03/15/25 11:01) Covid19 Antigen Ana (03/15/25 ) Rapid Influenza A&B (03/15/25 11:01) Vital Signs Date Time Temp Pulse Resp B/P (MAP) Pulse Ox O2 Delivery O2 Flow Rate FiO2 03/15/25 10:51 62 03/15/25 10:37 97.0 61 20 155/55 93 97.0 Laboratory Tests Test 03/15/25 10:55 03/15/25 11:19 White Blood Count 15.0 10^3/uL (4.4-10.8) H Lactic Acid Level 1.0 mmol/L (0.4-2.0) Medications Medications Dose Ordered Sig/Erlinda Route Start Time Stop Time Status Last Admin Dose Admin Methylprednisolone Sodium Succinate 125 mg ONCE ONCE IV 03/15/25 11:15 03/15/25 11:21 DC 03/15/25 13:08 Departure 1 Departure Time of Disposition: 14:14 Impression: Primary Impression: Acute on chronic diastolic heart failure Additional Impression: Bilateral pleural effusion Disposition: ADMITTED INPATIENT Admit to: Tele Condition: Fair Critical Care Note Critical Care Time?: No Stability Stability form required: Yes Unstable for transfer: Telemetry monitoring (Telemetry monitoring required), ED Physician Assesment (Clinical assesment) Heart Score Heart Score: Heart Score Response (Comments) Value History Moderate Suspicious 1 EKG Normal 0 Age >65 2 Risk Factors >3 or Hx ASHD 2 Troponin Normal limit 0 Total 5 I personally scribed for BRENT HERMAN MD ([email or web address]) on 03/15/25 at 11:13. Electronically submitted by Jayce Max ([email or web address]). BRENT HERMAN MD Mar 15, 2025 11:13
[2025-03-15 11:38] LABS: Hematocrit 37.2 % (36.0-46.0); Hemoglobin 12.3 g/dL (12.2-16.2); Mean Corpuscular Hemoglobin 29.5 pg (28.0-32.0); Mean Corpuscular Volume 89.4 fL (80.0-100.0); Nucleated Red Blood Cells % 0.1 %
--- NOTE | 2025-03-15 11:53 | DVH ---
CHEST RADIOGRAPH Indication: sob Technique: XY CHEST TWO VIEWS ROUTINE COMPARISON: None FINDINGS: The cardiac silhouette is enlarged. The lungs demonstrate bilateral patchy airspace opacities. The pu lmonary vasculature is prominent. Moderate right and small left pleural effusions. Aortic atheroscle rotic disease. There is no pneumothorax. T12 compression deformity with 50% loss height. Aortic ather osclerotic disease. IMPRESSION: Cardiomegaly with pulmonary vascular congestion and bilateral patchy airspace opacities. Moderate right and small left pleural effusions.
[2025-03-15 11:56] LABS: Chloride 103 mmol/L (98-107); Potassium 5.0 mmol/L (3.5-5.1); Sodium 140 mmol/L (136-145)
[2025-03-15 11:57] LABS: Anion Gap 10 (5-15); Calcium 9.8 mg/dL (8.7-10.4); Carbon Dioxide 27 mmol/L (20-31)
[2025-03-15 12:02] LABS: BUN/Creatinine Ratio 9.3 (10.0-20.0)
[2025-03-15 12:03] LABS: Blood Urea Nitrogen 26 mg/dL (9-23); Glucose 121 mg/dL (74-106)
[2025-03-15] MEDS: methylPREDNISolone SOD SUCC 125 MG/2 ML VL IV ONE (13:08)
[2025-03-15] MEDS ORDERED: NITROGLYCERIN 0.4 MG SL TAB SL PRN (19:30)
[2025-03-15] MEDS ORDERED: DEXTROSE (50%) 50ML SYRG IV PRN (19:30)
[2025-03-15] MEDS ORDERED: ACETAMINOPHEN 325 MG TAB PO PRN (19:30)
[2025-03-15] MEDS ORDERED: MORPHINE SULFATE INJ 2 MG/ml SYRG IV PRN (19:30)
[2025-03-15] MEDS ORDERED: ONDANSETRON HCL 4 MG/2 ML VIAL IV PRN (19:30)
[2025-03-15] MEDS ORDERED: ALBUTEROL SULF 2.5 MG/0.5ML(0.5%) NEB SOLN NEB PRN (19:30)
[2025-03-15] MEDS: AZITHROMYCIN 500MG/ 250ML 250 ML IV ONE (20:15)
[2025-03-15 20:26] VITALS: PULSE 74; RESP 20; O2SAT 95
[2025-03-15 21:45] VITALS: BP 153/60; PULSE 75; RESP 17; TEMP 97.7; O2SAT 93
[2025-03-15] MEDS: ACCU-CHEK COMFORT CURVE STRIP VI SCH (22:00)
[2025-03-15] MEDS: FUROSEMIDE 20 MG/2 ML VIAL IV ONE (22:30)
--- NOTE | 2025-03-15 22:30 | DVHHP2 ---
History of Present Illness Reason for Visit: Shortness for breath History of Present Illness 79-year-old female presents for evaluation of shortness for breath. Patient presents with a two week history of shortness for breath with associated cough with green phlegm. Also reports intermittent chills. On arrival patient was no rosmery to be saturating in the low 90s on room air. Denies chest pain. Past Medical History GERD, diabetes mellitus, COPD, dyslipidemia, hypertension, thyroid Past Surgical History Right ankle surgery Family History Diabetes mellitus and heart disease Smoke: No ALCOHOL: none Drugs: None Lives: with Family Review of Systems Review of Systems Review of systems are currently negative otherwise addressed in HPI. Allergies: Coded Allergies: Cortisone (Verified Allergy, Unknown, 11/10/17) Iodine (Verified Allergy, Unknown, 11/10/17) Shellfish Allergy (Verified Allergy, Unknown, 11/10/17) Uncoded Allergies: strawberries (Allergy, Unknown, 11/10/17) Medications Current Medications Medications Dose Ordered Sig/Erlinda Route Start Time Stop Time Status Last Admin Dose Admin Ceftriaxone Sodium 50 ml @ 100 mls/hr DAILY@09 IV 03/16/25 09:00 Azithromycin 250 ml @ 125 mls/hr DAILY IV 03/16/25 10:00 Albuterol 2.5 mg Q6HPRN PRN NEB 03/15/25 19:30 Atorvastatin Calcium 20 mg HS PO 03/15/25 22:00 Clopidogrel Bisulfate 75 mg DAILY PO 03/16/25 10:00 Levothyroxine Sodium 100 mcg QAM@0600 PO 03/16/25 06:00 Metoprolol Tartrate 50 mg BID PO 03/15/25 22:00 Hydralazine HCl 50 mg Q8HR PO 03/15/25 22:00 Diagnostic Test (Pha) 1 strip ACHS 03/15/25 22:00 Insulin Human Regular ACHS SC 03/15/25 22:00 Dextrose 50 ml UD PRN IV 03/15/25 19:30 Ondansetron HCl 4 mg Q4HP PRN IV 03/15/25 19:30 Acetaminophen 650 mg Q6HP PRN PO 03/15/25 19:30 Nitroglycerin 0.4 mg Q5MINP PRN SL 03/15/25 19:30 Morphine Sulfate 2 mg Q30M PRN IV 03/15/25 19:30 Exam Vital Signs Vital Signs Date Time Temp Pulse Resp B/P (MAP) Pulse Ox O2 Delivery O2 Flow Rate FiO2 03/15/25 21:45 97.7 75 17 153/60 (91) 93 97.7 03/15/25 20:26 Nasal Cannula* 2 28 Exam Gen: 79-year-old female in mild distress Skin: Warm, dry, normal color and texture, no rash. HEENT: Normocephalic atraumatic, mucous membranes moist and pink. Neck: Cervical and supraclavicular nodes normal without enlargement, trachea is midline, thyroid gland is normal without masses. Pulmonary: Diminished breath sounds bilaterally Cardiac: Regular rate and rhythm. No murmur Abdomen: Soft, nontender, nondistended, bowel sounds present all 4 quadrants, no guarding, no rigidity, no organomegaly. Extremities: No cyanosis, clubbing, no edema Neuro: Cranial nerves II through XII grossly intact, normal affect and speech, no focal motor deficits. Labs/Xrays ORDERING PHYSICIAN: BRENT HERMAN MD PROCEDURE(s): CXR2 - CHEST TWO VIEWS ROUTINE REASON: sob ORDER NUMBER(s): [id number], ACCESSION NUMBER(s): [id number] CHEST RADIOGRAPH Indication: sob Technique: XY CHEST TWO VIEWS ROUTINE COMPARISON: None FINDINGS: The cardiac silhouette is enlarged. The lungs demonstrate bilateral patchy airspace opacities. The pulmonary vasculature is prominent. Moderate right and small left pleural effusions. Aortic atherosclerotic disease. There is no pneu mothorax. T12 compression deformity with 50% loss height. Aortic atherosclerotic disease. IMPRESSION: Cardiomegaly with pulmonary vascular congestion and bilateral patchy airspace opacities. Moderate right and small left pleural effusions. Labs Test 03/15/25 22:08 03/15/25 11:19 03/15/25 10:55 Range/Units POC Glucose 380 H 70-106 mg/dl Lactic Acid Level 1.0 0.4-2.0 mmol/L White Blood Count 15.0 H 4.4-10.8 10^3/uL Red Blood Count 4.16 4.0-5.20 10^6/uL Hemoglobin 12.3 12.2-16.2 g/dL Hematocrit 37.2 36.0-46.0 % Mean Corpuscular Volume 89.4 80.0-100.0 fL Mean Corpuscular Hemoglobin 29.5 28.0-32.0 pg Mean Corpuscular Hemoglobin Concent 33.0 32.0-36.0 g/dL Red Cell Distribution Width 17.8 H 11.8-14.3 % Platelet Count 297 140-450 10^3/uL Mean Platelet Volume 7.2 6.9-10.8 fL Neutrophils (%) (Auto) 53.8 37.0-80.0 % Lymphocytes (%) (Auto) 40.2 10.0-50.0 % Monocytes (%) (Auto) 4.3 0.0-12.0 % Eosinophils (%) (Auto) 1.1 0.0-7.0 % Basophils (%) (Auto) 0.6 0.0-2.0 % Neutrophils # (Auto) 8.1 1.6-8.6 10 ^3/uL Lymphocytes # (Auto) 6.0 H 0.4-5.4 10 ^3/uL Monocytes # (Auto) 0.6 0-1.3 10 ^3/uL Eosinophils # (Auto) 0.2 0-0.8 10 ^3/uL Basophils # (Auto) 0.1 0-0.2 10 ^3/uL Nucleated Red Blood Cells 0.1 % Sodium Level 140 136-145 mmol/L Potassium Level 5.0 3.5-5.1 mmol/L Chloride Level 103 98-107 mmol/L Carbon Dioxide Level 27 20-31 mmol/L Anion Gap 10 5-15 Blood Urea Nitrogen 26 H 9-23 mg/dL Creatinine 2.79 H 0.550-1.02 mg/dL Glomerular Filtration Rate Calc 17 >90 mL/min BUN/Creatinine Ratio 9.3 L 10.0-20.0 Serum Glucose 121 H 74-106 mg/dL Calcium Level 9.8 8.7-10.4 mg/dL Troponin I High Sensitivity 6 </=34 ng/L B-Type Natriuretic Peptide 266.38 0-100 pg/mL SEPSIS Sepsis Screen Date sepsis recognized/suspect: Mar 15, 2025 Time Sepsis recognized/suspect: 1039 Recent Procedure: No On Antibiotic Therapy: No Respiratory Rate >20: No Heart Rate >90: No Temp<36 C (96.8 F) or >38.3 C: No SBP <90 or MAP <65 mmHG: No New Acute Mental Status Change: No Is the patient on CPAP, BIPAP,: No Physician Orders Ceftriaxone 1gm/50ml (Rocephin) (03/16/25 09:00) Azithromycin 500mg/ 250ml (Zithromax 50 (03/16/25 10:00) Albuterol Medneb (Ventolin Medneb) (03/15/25 19:30) Atorvastatin (Lipitor) (03/15/25 22:00) Clopidogrel Bisulfate (Plavix) (03/16/25 10:00) Levothyroxine Tablet (Synthroid Tablet) (03/16/25 06:00) Metoprolol Tartrate Tablet (Lopressor Ta (03/15/25 22:00) Hydralazine Hcl Tablet (Apresoline Table (03/15/25 22:00) Basic Metabolic Panel (03/16/25 04:00) Glucose Blood (Accu-Chek Comfort Curve T (03/15/25 22:00) Insulin R (Human) (Insulin R) (03/15/25 22:00) Dextrose 50% Syringe (03/15/25:30) Admit (03/15/25 19:20) Ondansetron Hcl (Zofran) (03/15/25:30) Complete Blood Count (03/16/25 04:00) Cardiac Diet-2gna,Lofat,Lochol (03/16/25 Breakfast) Echo 2d Mode Cardiac Dop (03/15/25:20) Condition: Fair (03/15/25:20) Acetaminophen Tablet (Tylenol Tablet) (03/15/25 19:30) Bedrest With Bathroom Privileg (03/15/25 19:20) Nitroglycerin Sublingual (Ntrostat Subli (03/15/25:30) Morphine Sulfate Injection (03/15/25:30) Stat Ekg For Chest Pain (03/15/25:20) Notify Md Of Changes From Base (03/15/25 19:20) Concrete Mason For 24 Hours (03/15/25 19:20) Emergency Dysrhythmia Protocol (03/15/25 19:20) Rhythm Strips Once Every Shift (03/15/25 19:20) Oxygen By Nasal Cannula (03/15/25 19:20) Vital Signs Date Time Temp Pulse Resp B/P (MAP) Pulse Ox O2 Delivery O2 Flow Rate FiO2 03/15/25 21:45 97.7 75 17 153/60 (91) 93 97.7 03/15/25 20:26 74 20 95 Nasal Cannula* 2 28 03/15/25 20:15 97.7 74 16 168/65 (99) 96 97.7 Laboratory Tests Test 03/15/25 10:55 03/15/25 11:19 White Blood Count 15.0 10^3/uL (4.4-10.8) H Lactic Acid Level 1.0 mmol/L (0.4-2.0) Medications Medications Dose Ordered Sig/Erlinda Route Start Time Stop Time Status Last Admin Dose Admin Azithromycin 250 ml @ 125 mls/hr ONCE ONCE IV 03/15/25 19:30 03/15/25 21:29 DC 03/15/25 20:15 125 MLS/HR Ceftriaxone Sodium 50 ml @ 100 mls/hr ONCE ONCE IV 03/15/25 19:30 03/15/25 19:59 DC 03/15/25 20:16 100 MLS/HR Methylprednisolone Sodium Succinate 125 mg ONCE ONCE IV 03/15/25 11:15 03/15/25 11:21 DC 03/15/25 13:08 125 MG Assessment/Plan Assessment/Plan Assessment Community-acquired pneumonia Chronic kidney disease Diabetes mellitus Pleural effusion Cardiomegaly Plan Admit the patient to telemetry to the hospitalist Rocephin/azithromycin Echocardiogram pending Resume home medications Lasix Continue treatment per orders. Plan discussed with: Patient My Orders Orders - SHERRIE RODRIGUES [id number] Procedure Category Date Status Time Ceftriaxone 1gm/50ml PHA 03/16/25 In Process (Rocephin) 09:00 Azithromycin 500mg/ PHA 03/16/25 In Process 250ml (Zithromax 50 10:00 Albuterol Medneb PHA 03/15/25 In Process (Ventolin Medneb) 19:30 Atorvastatin (Lipitor) PHA 03/15/25 In Process 22:00 Clopidogrel Bisulfate PHA 03/16/25 In Process (Plavix) 10:00 Levothyroxine Tablet PHA 03/16/25 In Process (Synthroid Tablet) 06:00 Metoprolol Tartrate PHA 03/15/25 In Process Tablet (Lopressor Ta 22:00 Hydralazine Hcl PHA 03/15/25 In Process Tablet (Apresoline 22:00 Basic Metabolic Panel LAB 03/16/25 Verified 04:00 Glucose Blood PHA 03/15/25 In Process (Accu-Chek Comfort 22:00 Insulin R (Human) PHA 03/15/25 In Process (Insulin R) 22:00 Dextrose 50% Syringe PHA 03/15/25 In Process 19:30 Admit ADMIT 03/15/25 Transmitted 19:20 Ondansetron Hcl PHA 03/15/25 In Process (Zofran) 19:30 Complete Blood Count LAB 03/16/25 Verified 04:00 Cardiac DIET 03/16/25 Transmitted Diet-2gna,Lofat,Lochol Breakfast Echo 2d Mode Cardiac US 03/15/25 Logged DOP 19:20 Condition: Fair JANELLE 03/15/25 In Process 19:20 Acetaminophen Tablet PHA 03/15/25 In Process (Tylenol Tablet) 19:30 Bedrest With Bathroom JANELLE 03/15/25 In Process Privileg 19:20 Nitroglycerin [facility] 03/15/25 In Process Sublingual (Ntrostat 19:30 Morphine Sulfate PHA 03/15/25 In Process Injection 19:30 Stat Ekg For Chest JANELLE 03/15/25 In Process Pain 19:20 Notify Of Changes [facility] 03/15/25 In Process From Base 19:20 Concrete Mason For [facility] 03/15/25 In Process 24 Hours 19:20 Emergency Dysrhythmia [facility] 03/15/25 In Process Protocol 19:20 Rhythm Strips Once [facility] 03/15/25 In Process Every Shift 19:20 Oxygen By Nasal RT 03/15/25 Transmitted Cannula 19:20 Date of Service: Mar 15, 2025 Billing Provider: SHERRIE RODRIGUES Common Visit Codes: [id number] INP/OBS CARE (HIGH) SHERRIE RODRIGUES Mar 15, 2025 22:30
[2025-03-15] MEDS: METOPROLOL TARTRATE 50 MG TAB PO SCH (22:39)
[2025-03-15] MEDS: ATORVASTATIN 20 MG TAB PO SCH (22:40)
[2025-03-15] MEDS: InsuLIN REG 1unit/0.01ml Soln (100units/ml) SC SCH (22:51)
[2025-03-15 23:40] VITALS: BP 153/60; PULSE 75; RESP 18; TEMP 97.7; O2SAT 95
[2025-03-15 23:54] VITALS: BP 153/60; PULSE 75; RESP 17; TEMP 97.7; O2SAT 93
[2025-03-16] VITALS (12 sets, daily range): BP systolic 144–168; BP diastolic 51–74; PULSE 61–77; RESP 14–18; TEMP 97.7–99.1; O2SAT 90–96
[2025-03-16 06:26] LABS: Hematocrit 30.7 % (36.0-46.0); Hemoglobin 10.4 g/dL (12.2-16.2); Mean Corpuscular Hemoglobin 29.7 pg (28.0-32.0); Mean Corpuscular Volume 87.7 fL (80.0-100.0); Nucleated Red Blood Cells % 0.1 %
[2025-03-16 06:34] LABS: Chloride 100 mmol/L (98-107)
[2025-03-16 06:35] LABS: Anion Gap 11 (5-15); Calcium 9.0 mg/dL (8.7-10.4); Carbon Dioxide 23 mmol/L (20-31)
[2025-03-16 06:40] LABS: BUN/Creatinine Ratio 12.5 (10.0-20.0)
[2025-03-16 06:41] LABS: Blood Urea Nitrogen 34 mg/dL (9-23); Glucose 146 mg/dL (74-106); Potassium 5.2 mmol/L (3.5-5.1); Sodium 134 mmol/L (136-145)
[2025-03-16] MEDS: LEVOTHYROXINE SODIUM 100 MCG TAB PO SCH (07:14)
[2025-03-16] MEDS: CLOPIDOGREL BISULFATE 75 MG TAB PO SCH (09:20)
[2025-03-16] MEDS: FUROSEMIDE 40 MG TAB PO SCH (09:21)
[2025-03-16] MEDS: AZITHROMYCIN 500MG/ 250ML 250 ML IV SCH (10:33)
[2025-03-16 12:08] LABS: Urine Protein, UAD 1+ (Negative)
--- NOTE | 2025-03-16 13:05 | DVHPN2 ---
Reviewed: Care Plan, H&P, Labs, Medications, Previous Orders, Radiology Changes from previous H/P or p: No Changes Objective Vitals Vital Signs Date Time Temp Pulse Resp B/P (MAP) Pulse Ox O2 Delivery O2 Flow Rate FiO2 03/16/25 12:53 99.1 61 18 145/71 (95) 92 99.1 03/16/25 10:00 Nasal Cannula 2.0 03/16/25 10:00 28 Intake/Output Intake and Output 03/16/25 07:00 Intake Total 500 ml Balance 500 ml Intake Oral 500 ml # Voids 1 Medications Current Medications Medications Dose Ordered Sig/Erlinda Route Start Time Stop Time Status Last Admin Dose Admin Ceftriaxone Sodium 50 ml @ 100 mls/hr DAILY@09 IV 03/16/25 09:00 03/16/25 09:22 100 MLS/HR Azithromycin 250 ml @ 125 mls/hr DAILY IV 03/16/25 10:00 03/16/25 10:33 125 MLS/HR Albuterol 2.5 mg Q6HPRN PRN NEB 03/15/25 19:30 Atorvastatin Calcium 20 mg HS PO 03/15/25 22:00 03/15/25 22:40 20 MG Clopidogrel Bisulfate 75 mg DAILY PO 03/16/25 10:00 03/16/25 09:20 75 MG Levothyroxine Sodium 100 mcg QAM@0600 PO 03/16/25 06:00 03/16/25 07:14 100 MCG Metoprolol Tartrate 50 mg BID PO 03/15/25 22:00 03/16/25 09:21 50 MG Hydralazine HCl 50 mg Q8HR PO 03/15/25 22:00 03/16/25 07:14 50 MG Diagnostic Test (Pha) 1 strip ACHS 03/15/25 22:00 03/16/25 11:34 1 STRIP Insulin Human Regular ACHS SC 03/15/25 22:00 03/16/25 11:35 3 UNITS Dextrose 50 ml UD PRN IV 03/15/25 19:30 Ondansetron HCl 4 mg Q4HP PRN IV 03/15/25 19:30 Acetaminophen 650 mg Q6HP PRN PO 03/15/25 19:30 Nitroglycerin 0.4 mg Q5MINP PRN SL 03/15/25 19:30 Morphine Sulfate 2 mg Q30M PRN IV 03/15/25 19:30 Furosemide 40 mg DAILY PO 03/16/25 10:00 03/16/25 09:21 40 MG Laboratory Results Laboratory Tests 03/16/25 05:47 Chemistry Test 03/16/25 05:47 Calcium Level 9.0 mg/dL (8.7-10.4) Urinalysis Test 03/16/25 11:24 Urine Color Colorless (Yellow) Urine Clarity Clear (Clear) Urine pH 6.5 (5.0-9.0) Urine Specific [place] 1.005 (1.001-1.035) Urine Protein 1+ (Negative) H Urine Ketones Negative (Negative) Urine Blood Negative /uL (Negative) Urine Nitrite Negative (Negative) Urine Bilirubin Negative (Negative) Urine Urobilinogen Normal mg/dL (Negative) Urine Leukocyte Esterase Negative /uL (Negative) Urine RBC <1 /hpf (0 - 4) Urine Microscopic WBC < 1 /HPF (0-5) Urine Squamous Epithelial Cells None seen /hpf (<5) Urine Bacteria None seen /hpf (None Seen) Urine Glucose Normal mg/dL (Normal) Microbiology Microbiology Date/Time Source Procedure Growth Status 03/15/25 11:19 Blood Blood Culture - Preliminary NO GROWTH AFTER 24 HOURS OF INCUBATION. Resulted Labs and/or images reviewed: Labs reviewed by me, Image(s) reviewed by me Assessment/Plan Assessment/Plan Acute hypoxic respiratory failure: Oxygen by nasal cannula Community-acquired bilateral pneumonia Gram-positive versus Gram-negative: Rocephin azithromycin albuterol Atrovent Solu-Medrol Acute COPD exacerbation: Med neb Hypertension Hypercholesterolemia Hypothyroidism Diabetes: Insulin sliding scale Acute kidney injury BUN 26, creatinine 2.79: Nephrology consult Moderate Rt Pleural effusion: Radiology consult for thoracentesis Time spent 70 minutes Advanced care planning time 20 minutes Patient is full code Plan discussed with: Patient My Orders Orders - PAWEL SHAH MD Procedure Category Date Status Time Covid19 Antigen Ana LAB 03/16/25 Transmitted Rapid Influenza A&B LAB 03/16/25 Transmitted 13:00 * Radiologist Consult CONS 03/16/25 Verified 13:01 Date of Service: Mar 16, 2025 Billing Provider: PAWEL SHAH MD Common Visit Codes: [id number] CARE 30-74 MIN PAWEL SHAH MD Mar 16, 2025 13:05
--- NOTE | 2025-03-16 14:42 | DVH ---
US CHEST ULTRASOUND, HISTORY: FLUID CHECK FOR POSSIBLE THORACENTESIS COMPARISON(S): XY CHEST TWO VIEWS ROUTINE on DOS: 03/15/25, XY CHEST TWO VIEWS ROUTINE on DOS: 5, CT CHEST WITHOUT CONTRAST on DOS: 12/03/23 TECHNICAL DATA: Transverse and longitudinal images are obtained of the chest. FINDING: IMPRESSION(S): Small left and moderate right pleural effusion.
[2025-03-16 16:18] LABS: INR 1.02 (0.9-1.15); Partial Thromboplastin Time 26.5 SEC (24.5-34.5); Prothrombin Time 10.8 sec (9.3-11.8)
[2025-03-16 17:29] LABS: COVID19 ANTIGEN SOFIA FIA NEGATIVE (NEGATIVE)
[2025-03-17] VITALS (8 sets, daily range): BP systolic 142–174; BP diastolic 51–79; PULSE 56–63; RESP 16–18; TEMP 97.5–97.8; O2SAT 92–95
[2025-03-17] MEDS ORDERED: AZIT500T66 PO (10:12)
--- NOTE | 2025-03-17 10:14 | DVHPN2 ---
Reviewed: Care Plan, H&P, Labs, Medications, Previous Orders, Radiology Changes from previous H/P or p: No Changes Objective Vitals Vital Signs Date Time Temp Pulse Resp B/P (MAP) Pulse Ox O2 Delivery O2 Flow Rate FiO2 03/17/25 09:21 67 142/72 03/17/25 09:00 97.8 18 93 97.8 03/16/25 20:00 Nasal Cannula* 2 28 Intake/Output Intake and Output 03/17/25 07:00 Intake Total 1500 ml Balance 1500 ml Intake Oral 1200 ml IV Total 300 ml # Voids 5 # Bowel Movements 2 Medications Current Medications Medications Dose Ordered Sig/Erlinda Route Start Time Stop Time Status Last Admin Dose Admin Ceftriaxone Sodium 50 ml @ 100 mls/hr DAILY@09 IV 03/16/25 09:00 03/17/25 09:17 100 MLS/HR Azithromycin 250 ml @ 125 mls/hr DAILY IV 03/16/25 10:00 03/16/25 10:33 125 MLS/HR Albuterol 2.5 mg Q6HPRN PRN NEB 03/15/25 19:30 Atorvastatin Calcium 20 mg HS PO 03/15/25 22:00 03/16/25 22:00 20 MG Clopidogrel Bisulfate 75 mg DAILY PO 03/16/25 10:00 03/17/25 09:18 75 MG Levothyroxine Sodium 100 mcg QAM@0600 PO 03/16/25 06:00 03/17/25 06:35 100 MCG Metoprolol Tartrate 50 mg BID PO 03/15/25 22:00 03/17/25 09:21 50 MG Hydralazine HCl 50 mg Q8HR PO 03/15/25 22:00 03/17/25 06:35 50 MG Diagnostic Test (Pha) 1 strip ACHS 03/15/25 22:00 03/17/25 06:41 1 STRIP Insulin Human Regular ACHS SC 03/15/25 22:00 03/16/25 23:56 2 UNITS Dextrose 50 ml UD PRN IV 03/15/25 19:30 Ondansetron HCl 4 mg Q4HP PRN IV 03/15/25 19:30 Acetaminophen 650 mg Q6HP PRN PO 03/15/25 19:30 Nitroglycerin 0.4 mg Q5MINP PRN SL 03/15/25 19:30 Morphine Sulfate 2 mg Q30M PRN IV 03/15/25 19:30 Furosemide 40 mg DAILY PO 03/16/25 10:00 03/17/25 09:18 40 MG Laboratory Results Laboratory Tests 03/16/25 05:47 Coagulation Test 03/16/25 15:13 Prothrombin Time 10.8 sec (9.3-11.8) Prothrombin Time INR 1.02 (0.9-1.15) Activated Partial Thromboplast Time 26.5 SEC (24.5-34.5) Urinalysis Test 03/16/25 11:24 Urine Color Colorless (Yellow) Urine Clarity Clear (Clear) Urine pH 6.5 (5.0-9.0) Urine Specific [place] 1.005 (1.001-1.035) Urine Protein 1+ (Negative) H Urine Ketones Negative (Negative) Urine Blood Negative /uL (Negative) Urine Nitrite Negative (Negative) Urine Bilirubin Negative (Negative) Urine Urobilinogen Normal mg/dL (Negative) Urine Leukocyte Esterase Negative /uL (Negative) Urine RBC <1 /hpf (0 - 4) Urine Microscopic WBC < 1 /HPF (0-5) Urine Squamous Epithelial Cells None seen /hpf (<5) Urine Bacteria None seen /hpf (None Seen) Urine Glucose Normal mg/dL (Normal) Microbiology Microbiology Date/Time Source Procedure Growth Status 03/15/25 11:19 Blood Blood Culture - Preliminary NO GROWTH AFTER 24 HOURS OF INCUBATION. Resulted Labs and/or images reviewed: Labs reviewed by me, Image(s) reviewed by me Assessment/Plan Assessment/Plan Acute hypoxic respiratory failure: Oxygen by nasal cannula Community-acquired bilateral pneumonia Gram-positive versus Gram-negative: Rocephin azithromycin albuterol Atrovent Solu-Medrol Acute COPD exacerbation: Med neb Hypertension Hypercholesterolemia Hypothyroidism Diabetes: Insulin sliding scale Acute kidney injury BUN 26, creatinine 2.79: Nephrology consult Moderate Rt Pleural effusion: Radiology consult for thoracentesis, too small to drain per Radiology Time spent 55 minutes Patient he is on room air and wants to go home today Plan discussed with: Patient, Other (RN) My Orders Orders - PAWEL SHAH MD Procedure Category Date Status Time * Radiologist Consult CONS 03/16/25 Transmitted 13:01 Date of Service: Mar 17, 2025 Billing Provider: PAWEL SHAH MD Common Visit Codes: [id number] DISCH DAY >30min PAWEL SHAH MD Mar 17, 2025 10:14
--- NOTE | 2025-03-17 10:17 | DVHDS2 ---
Discharge Summary Date of Admission Mar 15, 2025 at 19:20 Date of Discharge: Mar 17, 2025 Admitting Diagnosis Shortness of breath Wounds: None Labs/Diagnostic Data: Laboratory Results Test 03/17/25 05:54 03/16/25 15:13 03/16/25 13:50 03/16/25 11:24 POC Glucose 111 mg/dl (70-106) Prothrombin Time 10.8 sec (9.3-11.8) Prothrombin Time INR 1.02 (0.9-1.15) Activated Partial Thromboplast Time 26.5 SEC (24.5-34.5) Influenza Type A Antigen Negative (Negative) Influenza Type B Antigen Negative (Negative) SARS-CoV-2 Antigen (Rapid) Negative (NEGATIVE) Urine Color Colorless (Yellow) Urine Clarity Clear (Clear) Urine pH 6.5 (5.0-9.0) Urine Specific [place] 1.005 (1.001-1.035) Urine Protein 1+ (Negative) Urine Ketones Negative (Negative) Urine Blood Negative /uL (Negative) Urine Nitrite Negative (Negative) Urine Bilirubin Negative (Negative) Urine Urobilinogen Normal mg/dL (Negative) Urine Leukocyte Esterase Negative /uL (Negative) Urine RBC <1 /hpf (0 - 4) Urine Microscopic WBC < 1 /HPF (0-5) Urine Squamous Epithelial Cells None seen /hpf (<5) Urine Bacteria None seen /hpf (None Seen) Urine Glucose Normal mg/dL (Normal) Test 03/16/25 05:47 03/15/25 11:19 03/15/25 10:55 White Blood Count 14.0 10^3/uL (4.4-10.8) Red Blood Count 3.50 10^6/uL (4.0-5.20) Hemoglobin 10.4 g/dL (12.2-16.2) Hematocrit 30.7 % (36.0-46.0) Mean Corpuscular Volume 87.7 fL (80.0-100.0) Mean Corpuscular Hemoglobin 29.7 pg (28.0-32.0) Mean Corpuscular Hemoglobin Concent 33.9 g/dL (32.0-36.0) Red Cell Distribution Width 17.4 % (11.8-14.3) Platelet Count 261 10^3/uL (140-450) Mean Platelet Volume 7.3 fL (6.9-10.8) Neutrophils (%) (Auto) 57.3 % (37.0-80.0) Lymphocytes (%) (Auto) 41.7 % (10.0-50.0) Monocytes (%) (Auto) 1.0 % (0.0-12.0) Eosinophils (%) (Auto) 0.0 % (0.0-7.0) Basophils (%) (Auto) 0.0 % (0.0-2.0) Neutrophils # (Auto) 8.0 10 ^3/uL (1.6-8.6) Lymphocytes # (Auto) 5.8 10 ^3/uL (0.4-5.4) Monocytes # (Auto) 0.1 10 ^3/uL (0-1.3) Eosinophils # (Auto) 0 10 ^3/uL (0-0.8) Basophils # (Auto) 0 10 ^3/uL (0-0.2) Nucleated Red Blood Cells 0.1 % Sodium Level 134 mmol/L (136-145) Potassium Level 5.2 mmol/L (3.5-5.1) Chloride Level 100 mmol/L (98-107) Carbon Dioxide Level 23 mmol/L (20-31) Anion Gap 11 (5-15) Blood Urea Nitrogen 34 mg/dL (9-23) Creatinine 2.71 mg/dL (0.550-1.02) Glomerular Filtration Rate Calc 17 mL/min (>90) BUN/Creatinine Ratio 12.5 (10.0-20.0) Serum Glucose 146 mg/dL (74-106) Calcium Level 9.0 mg/dL (8.7-10.4) Lactic Acid Level 1.0 mmol/L (0.4-2.0) Troponin I High Sensitivity 6 ng/L (</=34) B-Type Natriuretic Peptide 266.38 pg/mL (0-100) Other Laboratory Tests 03/16/25 05:47 Brief Hx & Hospital Course: 79-year-old female with a history of hypertension hypercholesterolemia hypothyroidism and diabetes COPD came in for shortness of breaths found to have community-acquired pneumonia treated with Rocephin azithromycin albuterol Atrovent Solu-Medrol found to have moderate pleural effusion in the right side but Radiology felt too small to drain BUN creatinine slightly high 26 and 2.79 Nephrology consult pending but the patient wants to go home today. Discharged home on azithromycin for pneumonia she will follow up with the primary Dr Patient with stable vital signs and on room air at the time of discharge Consults/Reason for consult Nephrology consult pending but patient wants to go home Operations or Procedures None Condition at Discharge: Fair Final Diagnosis/Problems List Acute hypoxic respiratory failure: Oxygen by nasal cannula Community-acquired bilateral pneumonia Gram-positive versus Gram-negative: Rocephin azithromycin albuterol Atrovent Solu-Medrol Acute COPD exacerbation: Med neb Hypertension Hypercholesterolemia Hypothyroidism Diabetes: Insulin sliding scale Acute kidney injury BUN 26, creatinine 2.79: Nephrology consult Moderate Rt Pleural effusion: Radiology consult for thoracentesis Discharge Disposition: Home Discharge Instruct/Medications Diet: Cardiac 2g Na,low cholest Activity: Light activity Follow Up/Referral: Continue all your previous home medications Follow up with the primary doc Medications: Azithromycin Transmitted to pharmacy Scheduled Alendronate Sodium (Alendronate Sodium), 1 TAB PO QWEEKLY, (Reported) Ascorbic Acid (Gnp Vitamin C W/Yoselyn Hips), 1,000 MG PO DAILY Aspirin (Aspirin Low Dose), 81 MG PO DAILY, (Reported) Atorvastatin Calcium (Atorvastatin Calcium), 1 TAB PO DAILY, (Reported) Azithromycin (Azithromycin), 250 MG PO DAILY Azithromycin (Azithromycin), 1 TAB PO DAILY Cholecalciferol (Vitamin D3 Super Strength), 4,000 UNIT PO DAILY Clopidogrel Bisulfate (Clopidogrel), 75 MG PO DAILY, (Reported) Gabapentin (Gabapentin), 1 TAB PO BID, (Reported) Glipizide (Glipizide), 5 MG PO BID, (Reported) Hydralazine Hcl (Hydralazine Hcl), 1 TAB PO TID WITH FOOD, (Reported) Levothyroxine Sodium (Synthroid Tablet), 100 MG PO QAM, (Reported) Meclizine HCl (Meclizine), 25 MG PO DAILY Metformin Hydrochloride (Metformin Hcl), 500 MG PO BID, (Reported) Metoprolol Tartrate (Lopressor Tablet), 1 TAB PO BIDWM, (Reported) Multiple Vitamin (Multivitamins), 1 CAP PO DAILY, (Reported) Psyllium (Metamucil), Unknown Dose PO PRN, (Reported) Zinc Sulfate (Zinc Sulfate), 220 MG PO DAILY Scheduled PRN Albuterol Sulfate (Ventolin Mdi), 180 MCG IN TIDPRN PRN 39 (Time taken for discharge summary 39 minutes) Discharge Statement: "Patient was advised to return to the ER or call 911 if any headaches, dizziness, shortness of breath, chest pain, abdominal pain, bleeding, fevers, or worsening of medical condition. Patient was counseled about treatment plan, medications, possible side effects, patientverbalized understanding. All questions were answered to the best of my ability. This discharge took greater then 30 minutes in planning, reviewing documentation, counseling the patient, and discussing with other team members." ASSESSMENT ASSESSMENT Hospital Course Uneventful Assessment Acute hypoxic respiratory failure: Oxygen by nasal cannula Community-acquired bilateral pneumonia Gram-positive versus Gram-negative: Rocephin azithromycin albuterol Atrovent Solu-Medrol Acute COPD exacerbation: Med neb Hypertension Hypercholesterolemia Hypothyroidism Diabetes: Insulin sliding scale Acute kidney injury BUN 26, creatinine 2.79: Nephrology consult Moderate Rt Pleural effusion: Radiology consult for thoracentesis Date of Service: Mar 17, 2025 Billing Provider: PAWEL SHAH MD Common Visit Codes: [id number] DISCH DAY >30min PAWEL SHAH MD Mar 17, 2025 10:17
[2025-03-17] MEDS: SODIUM ZIRCONIUM CYCL 10 GM PAK PO ONE (12:40)
--- NOTE | 2025-03-19 13:52 | DVHSR ---
APPROVED REPORT EXAM: Two-dimensional and M-mode echocardiogram with Doppler and color Doppler. Blood Pressure: 145/63 mmHg INDICATION EF RISK FACTORS Height: 61, Weight: 107 DIMENSIONS LVDd (3.8-5.7cm)LA (2D)4.2 (1.9-4.0cm)Aortic Root2.8 (2.0-3.7cm) LVDs (2.5-4.0cm)LA (MM) (1.9-4.0cm)Aortic Cusp Exc0.5 (1.5-2.0cm) EF (%) 62.0 (55-70%)Rt. Atrium3.4 (1.9-4.0cm)Asc. Aorta cm Mitral Valve MitralMitral Stenosis E wave1.01m/sMV Mean GR.2mmHg A wave1.04m/sMV Peak GR.68mmHg E/A ratio1.02D MVAcm2 DECEL [id number] 1/2 [id number] IVRTmsDop MVA3.81cm2 Aortic Valve Aortic ValveAortic Stenosis V10.83m/[place] Mean GR.41mmHg V23.89m/[place] Peak GR.61mmHg LVOT Diameter1.7 (1.8-2.4cm)Doppler AVA0.48cm2 Tricuspid Valve TR Velocity3.06m/s [id number] Conclusion asked to read this echo 1 hour ago lvef 60% normal rv function normal atria severe aortic stenosis
== END 2025-03-17 13:40 | disposition home or self-care (01) | DRG 177 ==
LOC: ER 10:36 → OVERFLOW 19:20 → TELE-EAST 21:21
PROVIDERS: ADMIT Family Medicine; ATTEND Family Medicine
DX: J15.69 Pneumonia due to other Gram-negative bacteria (principal); J96.01 Acute respiratory failure with hypoxia; J44.0 Chronic obstructive pulmonary disease with (acute) lower respiratory infection; J44.1 Chronic obstructive pulmonary disease with (acute) exacerbation; N17.9 Acute kidney failure, unspecified; K21.9 Gastro-esophageal reflux disease without esophagitis; I12.9 Hypertensive chronic kidney disease with stage 1 through stage 4 chronic kidney disease, or unspecified chronic kidney disease; J15.9 Unspecified bacterial pneumonia; E11.22 Type 2 diabetes mellitus with diabetic chronic kidney disease; N18.9 Chronic kidney disease, unspecified; E03.9 Hypothyroidism, unspecified; E78.00 Pure hypercholesterolemia, unspecified; Z91.018 Allergy to other foods; Z91.013 Allergy to seafood; Z79.2 Long term (current) use of antibiotics; Z87.891 Personal history of nicotine dependence; Z83.3 Family history of diabetes mellitus
CPT/HCPCS: 36415; 71046; 76604; 80048; 81001; 82962; 83605; 83880; 84484; 85025; 85610; 85730; 87040; 87426; 87804; 93005; 93306; G0378; J1815

== ENCOUNTER 2025-03-25 21:32 | Inpatient (IN) | payer OTHER ==
[~2025-03-25] VITALS: Ht 152.4 cm; Wt 53.4 kg
[~2025-03-25 21:32] MED LIST changes: +AZIT500T66 PO
--- NOTE | 2025-03-25 22:05 | ED.PDOC ---
History of Present Illness HPI Comments 79-year-old female who came to ER via EMS for hypoglycemia/altered mental status. Per EMS, patient picked up at home, was noted by family members with the patient has been acting altered and confused recently. The arrival of paramedics, blood sugar was 37. Family stated patient has been eating properly recently, she has been generally weak with recent falls. Patient was given D10 Water and it improved to 219, and so did her mental status. 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 Allergies: Coded Allergies: Cortisone (Verified Allergy, Unknown, 11/10/17) Iodine (Verified Allergy, Unknown, 11/10/17) Shellfish Allergy (Verified Allergy, Unknown, 11/10/17) Uncoded Allergies: strawberries (Allergy, Unknown, 11/10/17) Home Meds Active Scripts Azithromycin (Azithromycin) 500 Mg Tab, 1 TAB PO DAILY, #7 TAB Prov:PAWEL SHAH MD 03/17/25 Azithromycin (Azithromycin) 250 Mg Tab, 250 MG PO DAILY MDD 500 for 5 Days, #6 TAB 0 Refills 2 TABLETS ORALLY ON DAY ONE, THEN 1 TABLET ORALLY DAILY FOR 4 DAYS Prov:TAMRA LANDIS 12/03/23 Meclizine HCl (Meclizine) 25 Mg Chw, 25 MG PO DAILY for 7 Days, #7 CHW Prov:ANGELIQUE BARNARD MD 10/01/21 Zinc Sulfate (Zinc Sulfate) 220 Mg Tab, 220 MG PO DAILY for 30 Days, #30 TAB Prov:CHAVEZ GRANADOS MD 05/17/21 Cholecalciferol (Vitamin D3 Super Strength) 2,000 Unit Cap, 4000 UNIT PO DAILY for 30 Days, #60 CAP Prov:CHAVEZ GRANADOS MD 05/17/21 Ascorbic Acid (Gnp Vitamin C W/Yoselyn Hips) 1,000 Mg Tab, 1000 MG PO DAILY for 10 Days, #10 TAB Prov:CHAVEZ GRANADOS MD 05/17/21 Albuterol Sulfate (VENTOLIN MDI) 90 Mcg Ih, 180 MCG IN TIDPRN PRN, #1 INH Prov:CHAVEZ GRANADOS MD 05/17/21 Reported Medications Metoprolol Tartrate (LOPRESSOR TABLET) 50 Mg Tb, 1 TAB PO BIDWM 05/14/21 Atorvastatin Calcium (ATORVASTATIN CALCIUM) 20 Mg Tab, 1 TAB PO DAILY 05/14/21 Alendronate Sodium (Alendronate Sodium) 70 Mg Tab, 1 TAB PO QWEEKLY 05/14/21 Gabapentin (Gabapentin) 600 Mg Tab, 1 TAB PO BID 05/14/21 Hydralazine Hcl (Hydralazine Hcl) 50 Mg Tab, 1 TAB PO TID WITH FOOD 05/14/21 Psyllium (Metamucil) Unknown Strength Cap, PO PRN 05/14/21 Multiple Vitamin (Multivitamins) Cap, 1 CAP PO DAILY WOMEN 50+ 01/12/18 Clopidogrel Bisulfate (CLOPIDOGREL) 75 Mg Tab, 75 MG PO DAILY 11/18/17 Aspirin (Aspirin Low Dose) 81 Mg Tab, 81 MG PO DAILY 11/18/17 Glipizide (Glipizide) 5 Mg Tab, 5 MG PO BID 08/01/15 Levothyroxine Sodium (SYNTHROID TABLET) 100 Mcg Tb, 100 MG PO QAM 06/03/13 Metformin Hydrochloride (Metformin Hcl) 500 Mg Tab, 500 MG PO BID, TAB 06/03/13 Information Source: Patient, Emergency Med Personnel Mode of Arrival: EMS Severity: Moderate Timing: Hours Duration: Since onset Prehospital treatment: IVF Past Medical History PAST MEDICAL HISTORY: COPD, DM, GERD, High Lipids, HTN, Thyroid Surgical History: Denies all surgeries BOOTMAKER HAND History: No Pertinent BOOTMAKER HAND History Family History Family History: Reviewed,noncontributory to illness, Family hx of DM, Family hx of heart michael Family History (Other): Family Hx of CKF Social History Smoker: Quit Greater Than 1 Year Alcohol: Denies ETOH Use Drugs: Denies Drug Use Lives In: Home Unable to Obtain due to: Altered Mental Status Physical Exam General Appearance: No Apparent Distress, Normal HEENT: Normal ENT Inspection, Pharynx Normal, TMs Normal Neck: Full Range of Motion, Non-Tender, Normal, Normal Inspection Respiratory: Chest Non-Tender, Lungs Clear, No Accessory Muscle Use, No Resp iratory Distress, Normal Breath Sounds Cardiovascular: No Edema, No JVD, No Murmur, No Gallop, Normal Peripheral Pulses, Regular Rate/Rhythm Breast Exam: Deferred Gastrointestinal: No Organomegaly, Non Tender, No Pulsatile Mass, Normal Bowel Sounds, Soft Genitalia: Deferred Pelvic: Deferred Rectal: Deferred Extremities: No calf tenderness, Normal capillary refill, Normal inspection, Normal range of motion, Non-tender, No pedal edema Musculoskeletal : Apperance: Normal Neurologic: Alert, group tester II-XII nml as Tested, No Motor Deficits, Normal Affect, Normal Mood, No Sensory Deficits Cerebellar Function: Normal Reflexes: Normal Skin: Dry, Normal Color, Warm Lymphatic: No Adenopathy Was a procedure done? Was a procedure done?: No Differential Dx Considerations may include: Anemia, electrolyte imbalance, hypoglycemia, altered mental status, sepsis, UTI X-Ray, Labs, Meds, VS Vital Signs Date Time Temp Pulse Resp B/P (MAP) Pulse Ox O2 Delivery O2 Flow Rate FiO2 03/26/25 00:21 98.1 60 18 168/62 (97) 97 98.1 03/25/25 22:11 68 03/25/25 22:10 72 18 97 Room Air* 0 21 03/25/25 22:10 98.1 78 18 118/72 (87) 97 98.1 03/25/25 21:32 97.5 63 14 163/62 95 97.5 Lab Test 03/26/25 01:23 03/26/25 01:05 Range/Units Urine Color Yellow Yellow Urine Clarity Clear Clear Urine pH 6.5 5.0-9.0 Urine Specific [place] 1.017 1.001-1.035 Urine Protein 3+ H Negative Urine Ketones Negative Negative Urine Blood Negative Negative /uL Urine Nitrite Negative Negative Urine Bilirubin Negative Negative Urine Urobilinogen Normal Negative mg/dL Urine Leukocyte Esterase Negative Negative /uL Urine RBC None seen 0 - 4 /hpf Urine Microscopic WBC 2 0-5 /HPF Urine Squamous Epithelial Cells Few <5 /hpf Urine Bacteria None seen None Seen /hpf Urine Glucose Normal Normal mg/dL White Blood Count 15.3 H 4.4-10.8 10^3/uL Red Blood Count 3.55 L 4.0-5.20 10^6/uL Hemoglobin 10.7 L 12.2-16.2 g/dL Hematocrit 31.6 L 36.0-46.0 % Mean Corpuscular Volume 88.9 80.0-100.0 fL Mean Corpuscular Hemoglobin 30.0 28.0-32.0 pg Mean Corpuscular Hemoglobin Concent 33.7 32.0-36.0 g/dL Red Cell Distribution Width 17.3 H 11.8-14.3 % Platelet Count 333 140-450 10^3/uL Mean Platelet Volume 7.2 6.9-10.8 fL Neutrophils (%) (Auto) 50.7 37.0-80.0 % Lymphocytes (%) (Auto) 43.5 10.0-50.0 % Monocytes (%) (Auto) 4.4 0.0-12.0 % Eosinophils (%) (Auto) 0.6 0.0-7.0 % Basophils (%) (Auto) 0.8 0.0-2.0 % Neutrophils # (Auto) 7.8 1.6-8.6 10 ^3/uL Lymphocytes # (Auto) 6.6 H 0.4-5.4 10 ^3/uL Monocytes # (Auto) 0.7 0-1.3 10 ^3/uL Eosinophils # (Auto) 0.1 0-0.8 10 ^3/uL Basophils # (Auto) 0.1 0-0.2 10 ^3/uL Nucleated Red Blood Cells 0.1 % Sodium Level 142 136-145 mmol/L Potassium Level 4.4 3.5-5.1 mmol/L Chloride Level 111 H 98-107 mmol/L Carbon Dioxide Level 19 L 20-31 mmol/L Anion Gap 12 5-15 Blood Urea Nitrogen 25 H 9-23 mg/dL Creatinine 2.76 H 0.550-1.02 mg/dL Glomerular Filtration Rate Calc 17 >90 mL/min BUN/Creatinine Ratio 9.1 L 10.0-20.0 Serum Glucose 41 *L 74-106 mg/dL Lactic Acid Level 0.7 0.4-2.0 mmol/L Calcium Level 9.0 8.7-10.4 mg/dL Magnesium Level 2.2 1.6-2.6 mg/dL Total Bilirubin 0.3 0.2-1.0 mg/dL Aspartate Amino Transferase (AST) 27 13-40 U/L Alanine Aminotransferase (ALT) 27 7-40 U/L Alkaline Phosphatase 78 46-116 U/L Total Protein 6.8 5.7-8.2 g/dL Albumin 4.2 3.2-4.8 g/dL Current Medications Medications (Trade) Dose Ordered Sig/Erlinda Route Start Time Stop Time Status Last Admin Dextrose 50 ml ONCE ONCE IV 03/26/25 01:45 03/26/25 01:46 DC 03/26/25 01:44 Time of 1ST Reevaluation: 22:00 Reevaluation 1ST: Unchanged Patient Education/Counseling: Diagnosis, Treatment Family Education/Counseling: No Family Present SEPSIS Sepsis Screen Physician Orders Complete Blood Count (03/25/25 21:50) Blood Culture (03/25/25 21:50) Electrocardigram (03/25/25 21:50) Blood Glucose Q4h (03/25/25 21:50) Vital Signs Date Time Temp Pulse Resp B/P (MAP) Pulse Ox O2 Delivery O2 Flow Rate FiO2 03/26/25 00:21 98.1 60 18 168/62 (97) 97 98.1 03/25/25 22:11 68 03/25/25 22:10 72 18 97 Room Air* 0 21 03/25/25 22:10 98.1 78 18 118/72 (87) 97 98.1 03/25/25 21:32 97.5 63 14 163/62 95 97.5 Laboratory Tests Test 03/26/25 01:05 Lactic Acid Level 0.7 mmol/L (0.4-2.0) White Blood Count 15.3 10^3/uL (4.4-10.8) H Medications Medications Dose Ordered Sig/Erlinda Route Start Time Stop Time Status Last Admin Dose Admin Dextrose 50 ml ONCE ONCE IV 03/26/25 01:45 03/26/25 01:46 DC 03/26/25 01:44 Departure 1 Departure Time of Disposition: 01:34 Impression: Primary Impression: Anemia of chronic disease Additional Impressions: Chronic renal failure Diabetes 1.5, managed as type 2 Hypoglycemia due to type 2 diabetes mellitus UTI (urinary tract infection) Disposition: 09 ADMITTED INPATIENT Admit to: Med Surg Condition: Guarded Discharged With: Self Comments 79 year old female with CKD and type 2 DM now with hypoglycemia, on lab review she has severe kidney disease and her blood glucose is still low. patient was given IV fluids, d50, and IV antibiotics. patient will need to be admitted for supportive care and further workup Critical Care Note Critical Care Time?: Yes (35 min-critical care time only) Critical care comment: Hypoglycemia Total critical care time: Approximately 36 minutes Due to a high probability of clinically significant, life threatening deterioration, the patient required my highest level of preparedness to intervene emergently and I personally spent this critical care time directly and personally managing the patient. This critical care time included obtaining a history; examining the patient; pulse oximetry; ordering and review of studies; arranging urgent treatment with development of a management plan; evaluation of patient's response to treatment; frequent reassessment; and, discussions with other providers. This critical care time was performed to assess and manage the high probability of imminent, life-threatening deterioration that could result in multi-organ failure. It was exclusive of separately billable procedures and treating other patients. Stability Stability form required: No Heart Score Heart Score: Heart Score Response (Comments) Value History N/A 0 EKG N/A 0 Age N/A 0 Risk Factors N/A 0 Troponin N/A 0 Total 0 I personally scribed for NIKKY ORTEZ MD ([email or web address]) on 03/25/25 at 22:05. Electronically submitted by Raudel Sullivan ([email or web address]). NIKKY ORTEZ MD Mar 25, 2025 22:05
[2025-03-25 22:10] VITALS: PULSE 72; RESP 18; O2SAT 97
[2025-03-26] VITALS (9 sets, daily range): BP systolic 152–180; BP diastolic 51–89; PULSE 65–106; RESP 16–18; TEMP 97.1–98.9; O2SAT 95–97
[2025-03-26 01:25] LABS: Hematocrit 31.6 % (36.0-46.0); Hemoglobin 10.7 g/dL (12.2-16.2); Mean Corpuscular Hemoglobin 30.0 pg (28.0-32.0); Mean Corpuscular Volume 88.9 fL (80.0-100.0); Nucleated Red Blood Cells % 0.1 %
[2025-03-26 01:29] LABS: Anion Gap 12 (5-15)
[2025-03-26 01:34] LABS: BUN/Creatinine Ratio 9.1 (10.0-20.0); Chloride 111 mmol/L (98-107); Potassium 4.4 mmol/L (3.5-5.1); Sodium 142 mmol/L (136-145)
[2025-03-26 01:35] LABS: Alkaline Phosphatase 78 U/L (46-116); Blood Urea Nitrogen 25 mg/dL (9-23); Calcium 9.0 mg/dL (8.7-10.4); Carbon Dioxide 19 mmol/L (20-31); Magnesium 2.2 mg/dL (1.6-2.6); Total Protein 6.8 g/dL (5.7-8.2)
[2025-03-26 01:38] LABS: Glucose 41 mg/dL (74-106)
[2025-03-26 01:40] LABS: Alanine Aminotransferase 27 U/L (7-40); Albumin 4.2 g/dL (3.2-4.8); Bilirubin, Total 0.3 mg/dL (0.2-1.0)
[2025-03-26 01:44] LABS: Urine Protein, UAD 3+ (Negative)
[2025-03-26] MEDS: DEXTROSE (50%) 50ML SYRG IV ONE (01:44)
[2025-03-26] MEDS: SODIUM CHLORIDE 0.9% 500 ML IV ONE (01:45)
[2025-03-26] MEDS: PIPERACILLIN-TAZOB 3.375GM 100 ML IV ONE (02:03)
[2025-03-26] MEDS ORDERED: ACETAMINOPHEN 325 MG TAB PO PRN (03:15)
[2025-03-26] MEDS ORDERED: NITROGLYCERIN 0.4 MG SL TAB SL PRN (03:15)
[2025-03-26] MEDS ORDERED: DEXTROSE (50%) 50ML SYRG IV PRN (03:15)
[2025-03-26] MEDS ORDERED: ONDANSETRON HCL 4 MG/2 ML VIAL IV PRN (03:15)
[2025-03-26] MEDS ORDERED: DOCUSATE SOD 100 MG CAP PO PRN (03:15)
[2025-03-26] MEDS ORDERED: MORPHINE SULFATE INJ 2 MG/ml SYRG IV PRN (03:15)
[2025-03-26] MEDS: hydrALAZINE HCL 20 MG/ML VL IV ONE (03:20)
--- NOTE | 2025-03-26 03:28 | DVHHP2 ---
History of Present Illness Reason for Visit: Hypoglycemia due to type 2 diabetes mellitus History of Present Illness The patient is a 79-year-old female with past medical history of COPD, hyperlipidemia, thyroid disease, hypertension, GERD, and diabetes mellitus who presented to [facility] ED for evaluation of altered mental status. As reported by EMS, patient was picked up at home when family member notice change in her mental status, acting altered, confused, poor appetite, generalized weakness, getting worse that prompted this visit. When EMS arrived on the scene, patient's blood glucose was 37 and was given D10 water and improved to 219, EN route to our facility ED. Patient was seen and evaluated in the ED, laboratory data shows WBC 15.3, hemoglobin 10.7, hematocrit 31.6, platelets 333, sodium 142, potassium 4.4, BUN 25, creatinine 2.76, glucose 41 trending up to 133, lactic acid 0.7, blood pressure 168/62, heart rate 68, temperature 98.1 F, O2 saturation 97% on room air. Please see medication orders section in the computer. On my assessment, patient remains altered, no diaphoresis, shortness of breaths, no diarrhea, nausea, vomiting, fever, no chills. Patient was admitted for further evaluation and medical management. Past Medical History COPD, DM, GERD, High Lipids, HTN, Thyroid Past Surgical History Denies all surgeries Family History Reviewed, noncontributory to the management of this case. Past Social History The patient lives at home, quit smoking greater than 1 year, denies alcohol or illicit drugs abuse. Review of Systems Constitutional: Yes: Weakness; No: Fever, Chills, Sweats, Malaise, Other Eyes: No: Pain, Vision change, Conjunctivae inflammation, Eyelid inflammation, Other, Redness ENT: No: Ear pain, Ear discharge, Nose pain, Nose discharge, Nose congestion, Mouth pain, Mouth swelling, Throat pain, Throat swelling, Other Respiratory: No: Cough, Dry, Shortness of breath, SOB with excertion, Wheezing, Hemoptysis, Pleuritic Pain, Sputum, Wheezing, Other Cardiovascular: No: Chest Pain, Palpitations, Orthopnea, Paroxysmal Noc. Dyspnea, Edema, Lt Headedness, Other Gastrointestinal: No: Nausea, Vomiting, Abdominal Pain, Diarrhea, Constipation, Melena, Hematochezia, Other Genitourinary: No Dysuria, No Frequency, No Incontinence, No Hematuria, No Retention, No Other Musculoskeletal: No: other, neck pain, shoulder pain, arm pain, back pain, hand pain, leg pain, foot pain Skin: No: Rash, Lesions, Jaundice, Bruising, Other Neurological: Confusion; No: Weakness, Numbness, Incoordination, Change in speech, Seizures, Other Allergies: Coded Allergies: Cortisone (Verified Allergy, Unknown, 11/10/17) Iodine (Verified Allergy, Unknown, 11/10/17) Shellfish Allergy (Verified Allergy, Unknown, 11/10/17) Uncoded Allergies: strawberries (Allergy, Unknown, 11/10/17) Medications Current Medications Medications Dose Ordered Sig/Erlinda Route Start Time Stop Time Status Last Admin Dose Admin Ceftriaxone Sodium 50 ml @ 100 mls/hr DAILY@ IV 03/26/25 09:00 UNV Hydralazine HCl 10 mg Q6HP PRN IV 03/26/25 03:15 Diagnostic Test (Pha) 1 strip ACHS 03/26/25 07:00 Insulin Human Regular ACHS SC 03/26/25 07:00 Dextrose 50 ml UD PRN IV 03/26/25 03:15 Sodium Chloride 10 ml Q8HR IV 03/26/25 06:00 Acetaminophen/ Hydrocodone Bitart 1 tab Q4HP PRN PO 03/26/25 03:15 Ondansetron HCl 4 mg Q4HP PRN IV 03/26/25 03:15 UNV Docusate Sodium 100 mg BIDPRN PRN PO 03/26/25 03:15 Acetaminophen 650 mg Q6HP PRN PO 03/26/25 03:15 Nitroglycerin 0.4 mg Q5MINP PRN SL 03/26/25 03:15 Morphine Sulfate 2 mg Q30M PRN IV 03/26/25 03:15 Ceftriaxone Sodium 50 ml @ 100 mls/hr DAILY@ IV 03/27/25 09:00 Exam Vital Signs Vital Signs Date Time Temp Pulse Resp B/P (MAP) Pulse Ox O2 Delivery O2 Flow Rate FiO2 03/26/25 03:20 192/62 03/26/25 02:59 62 03/26/25 00:21 98.1 18 97 98.1 03/25/25 22:10 Room Air* 0 21 General Appearance: Alert, Cooperative, No acute distress, Other (Oriented x2) HEENT: Atraumatic, PERRLA, EOMI, Mucous membr. moist/pink Respiratory: Normal air movement Cardiovascular: Regular rate, Normal S1, Normal S2, No murmurs Abdominal: Normal bowel sounds, Soft, No tenderness, No hepatospenomegaly, No masses Extremities: No clubbing, No cyanosis, No edema, Normal pulses, No tenderness/swelling Skin: No rashes, No significant lesion Neuro: Normal speech, Normal tone, Sensation intact, Cranial nerves 3-12 NL, Reflexes 2+ Psych/Mental Status: Mental status NL, Mood NL Labs/Xrays Labs Test 03/26/25 01:32 03/26/25 01:23 03/26/25 01:05 Range/Units POC Glucose 133 H 70-106 mg/dl Urine Color Yellow Yellow Urine Clarity Clear Clear Urine pH 6.5 5.0-9.0 Urine Specific [place] 1.017 1.001-1.035 Urine Protein 3+ H Negative Urine Ketones Negative Negative Urine Blood Negative Negative /uL Urine Nitrite Negative Negative Urine Bilirubin Negative Negative Urine Urobilinogen Normal Negative mg/dL Urine Leukocyte Esterase Negative Negative /uL Urine RBC None seen 0 - 4 /hpf Urine Microscopic WBC 2 0-5 /HPF Urine Squamous Epithelial Cells Few <5 /hpf Urine Bacteria None seen None Seen /hpf Urine Glucose Normal Normal mg/dL White Blood Count 15.3 H 4.4-10.8 10^3/uL Red Blood Count 3.55 L 4.0-5.20 10^6/uL Hemoglobin 10.7 L 12.2-16.2 g/dL Hematocrit 31.6 L 36.0-46.0 % Mean Corpuscular Volume 88.9 80.0-100.0 fL Mean Corpuscular Hemoglobin 30.0 28.0-32.0 pg Mean Corpuscular Hemoglobin Concent 33.7 32.0-36.0 g/dL Red Cell Distribution Width 17.3 H 11.8-14.3 % Platelet Count 333 140-450 10^3/uL Mean Platelet Volume 7.2 6.9-10.8 fL Neutrophils (%) (Auto) 50.7 37.0-80.0 % Lymphocytes (%) (Auto) 43.5 10.0-50.0 % Monocytes (%) (Auto) 4.4 0.0-12.0 % Eosinophils (%) (Auto) 0.6 0.0-7.0 % Basophils (%) (Auto) 0.8 0.0-2.0 % Neutrophils # (Auto) 7.8 1.6-8.6 10 ^3/uL Lymphocytes # (Auto) 6.6 H 0.4-5.4 10 ^3/uL Monocytes # (Auto) 0.7 0-1.3 10 ^3/uL Eosinophils # (Auto) 0.1 0-0.8 10 ^3/uL Basophils # (Auto) 0.1 0-0.2 10 ^3/uL Nucleated Red Blood Cells 0.1 % Sodium Level 142 136-145 mmol/L Potassium Level 4.4 3.5-5.1 mmol/L Chloride Level 111 H 98-107 mmol/L Carbon Dioxide Level 19 L 20-31 mmol/L Anion Gap 12 5-15 Blood Urea Nitrogen 25 H 9-23 mg/dL Creatinine 2.76 H 0.550-1.02 mg/dL Glomerular Filtration Rate Calc 17 >90 mL/min BUN/Creatinine Ratio 9.1 L 10.0-20.0 Serum Glucose 41 *L 74-106 mg/dL Lactic Acid Level 0.7 0.4-2.0 mmol/L Calcium Level 9.0 8.7-10.4 mg/dL Magnesium Level 2.2 1.6-2.6 mg/dL Total Bilirubin 0.3 0.2-1.0 mg/dL Aspartate Amino Transferase (AST) 27 13-40 U/L Alanine Aminotransferase (ALT) 27 7-40 U/L Alkaline Phosphatase 78 46-116 U/L Total Protein 6.8 5.7-8.2 g/dL Albumin 4.2 3.2-4.8 g/dL SEPSIS Sepsis Screen Date sepsis recognized/suspect: Mar 25, 2025 Time Sepsis recognized/suspect: 2213 Recent Procedure: No On Antibiotic Therapy: No Respiratory Rate >20: No Heart Rate >90: No Temp<36 C (96.8 F) or >38.3 C: No SBP <90 or MAP <65 mmHG: No New Acute Mental Status Change: No Is the patient on CPAP, BIPAP,: No Physician Orders Blood Culture (03/25/25 21:50) Electrocardigram (03/25/25 21:50) Blood Glucose Q4h (03/25/25 21:50) Straightcath If Unable To Void (03/26/25 01:40) Complete Blood Count (03/26/25 04:00) Comprehensive Metabolic Panel (03/26/25 04:00) Ceftriaxone 1gm/50ml (Rocephin) (03/26/25 03:15) Hydralazine Injection (Apresoline Inject (03/26/25 03:15) *Dr. Yasmin Asher -Carlin Marquis (03/26/25 03:06) Glucose Blood (Accu-Chek Comfort Curve T (03/26/25 07:00) Insulin R (Human) (Insulin R) (03/26/25 07:00) Dextrose 50% Syringe (03/26/25 03:15) Admit (03/26/25 03:06) Allergies (03/26/25 03:06) Code Status (03/26/25 03:06) Sodium Chloride Lock (Saline Lock Ns) (03/26/25 06:00) Oxygen Per Hour (03/26/25 03:06) Hydrocodone-Acet 5/325mg Tab ([place]ou[place] 5/32 (03/26/25 03:15) Ondansetron Hcl (Zofran) (03/26/25 03:15) Docusate Sodium Capsule (Colace Capsule) (03/26/25 03:15) Fall Risk Precautions In Place QSHIFT (03/26/25 03:06) Complete Blood Count (03/27/25 04:00) Comprehensive Metabolic Panel (03/27/25 04:00) Condition: Serious (03/26/25 03:06) Acetaminophen Tablet (Tylenol Tablet) (03/26/25 03:15) Maintain Bed Rest (03/26/25 03:06) Sequential Compression Device (03/26/25 ) Nitroglycerin Sublingual (Ntrostat Subli (03/26/25 03:15) Morphine Sulfate Injection (03/26/25 03:15) Stat Ekg For Chest Pain (03/26/25 03:06) Notify Of Changes From Base (03/26/25 03:06) Graduate Assistant For 24 Hours (03/26/25 03:06) Emergency Dysrhythmia Protocol (03/26/25 03:06) Rhythm Strips Once Every Shift (03/26/25 03:06) Oxygen By Nasal Cannula (03/26/25 03:06) Consistent Carb(Ccho)Diabetes (03/26/25 Breakfast) Ceftriaxone 1gm/50ml (Rocephin) (03/27/25 09:00) Aspirin Tablet (03/26/25 10:00) Atorvastatin (Lipitor) (03/26/25 22:00) Thyroid Stimulating Hormone (03/26/25 03:17) Levothyroxine Tablet (Synthroid Tablet) (03/26/25 06:00) Metoprolol Tartrate Tablet (Lopressor Ta (03/26/25 10:00) Vital Signs Date Time Temp Pulse Resp B/P (MAP) Pulse Ox O2 Delivery O2 Flow Rate FiO2 03/26/25 03:20 192/62 03/26/25 02:59 62 193/52 (99) 03/26/25 00:21 98.1 60 18 168/62 (97) 97 98.1 03/25/25 22:11 68 03/25/25 22:10 72 18 97 Room Air* 0 21 03/25/25 22:10 98.1 78 18 118/72 (87) 97 98.1 03/25/25 21:32 97.5 63 14 163/62 95 97.5 Laboratory Tests Test 03/26/25 01:05 Lactic Acid Level 0.7 mmol/L (0.4-2.0) White Blood Count 15.3 10^3/uL (4.4-10.8) H Medications Medications Dose Ordered Sig/Erlinda Route Start Time Stop Time Status Last Admin Dose Admin Ceftriaxone Sodium 50 ml @ 100 mls/hr ONCE ONCE IV 03/26/25 03:15 03/26/25 03:44 03/26/25 03:26 100 MLS/HR Dextrose 50 ml ONCE ONCE IV 03/26/25 01:45 03/26/25 01:46 DC 03/26/25 01:44 50 ML Hydralazine HCl 10 mg ONCE ONCE IV 03/26/25 03:00 03/26/25 03:01 DC 03/26/25 03:20 10 MG Piperacillin Sod/ Tazobactam Sod 100 ml @ 100 mls/hr ONCE ONCE IV 03/26/25 01:45 03/26/25 02:44 DC 03/26/25 02:03 100 MLS/HR Assessment/Plan Assessment/Plan Hypoglycemia due to type 2 diabetes mellitus Altered mental status Anemia of chronic disease Leukocytosis, unspecified Generalized weakness Acute on chronic renal failure Plan 1. Admit to telemetry unit 2. Breathing treatment 3. Pain control management 4. IV antibiotic management 5. Management of fluids and electrolytes 6. Consultation for hospitalist 7. Diagnostic test chest x-ray 8. DVT prophylaxis-on aspirin 9. Repeat labs CBC, CMP in a.m. 10. Home medication reviewed and reconciled 11. Continue with current medical management 12. Treatment plan discussed with patient and RN. Patient verbalized understanding. Plan discussed with: Patient, Other (RN) My Orders Orders - BARTOLO STEVEN DNP Procedure Category Date Status Time Complete Blood Count LAB 03/26/25 Logged 04:00 Comprehensive LAB 03/26/25 Logged Metabolic Panel 04:00 Ceftriaxone 1gm/50ml PHA 03/26/25 In Process (Rocephin) 03:15 Hydralazine Injection PHA 03/26/25 In Process (Apresoline Inject 03:15 *Dr. Yasmin Asher -Da CONS 03/26/25 Transmitted Kandis 03:06 Glucose Blood PHA 03/26/25 In Process (Accu-Chek Comfort 07:00 Insulin R (Human) PHA 03/26/25 In Process (Insulin R) 07:00 Dextrose 50% Syringe PHA 03/26/25 In Process 03:15 Admit ADMIT 03/26/25 Transmitted 03:06 Allergies JANELLE 03/26/25 In Process 03:06 Code Status CODE 03/26/25 Transmitted 03:06 Sodium Chloride Lock PHA 03/26/25 In Process (Saline Lock Ns) 06:00 Oxygen Per Hour RT 03/26/25 Transmitted 03:06 Hydrocodone-Acet PHA 03/26/25 In Process 5/325mg Tab ([place]ou[place] 03:15 Ondansetron Hcl PHA 03/26/25 Pending (Zofran) 03:15 Docusate Sodium PHA 03/26/25 In Process Capsule (Colace 03:15 Fall Risk Precautions JANELLE 03/26/[address] 03:06 Complete Blood Count LAB 03/27/25 Verified 04:00 Comprehensive LAB 03/27/25 Verified Metabolic Panel 04:00 Condition: Serious JANELLE 03/26/25 In Process 03:06 Acetaminophen Tablet PHA 03/26/25 In Process (Tylenol Tablet) 03:15 Maintain Bed Rest JANELLE 03/26/25 In Process 03:06 Sequential [facility] 03/26/25 In Process Compression Device Nitroglycerin [facility] 03/26/25 In Process Sublingual (Ntrostat 03:15 Morphine Sulfate [facility] 03/26/25 In Process Injection 03:15 Stat Ekg For Chest [facility] 03/26/25 In Process Pain 03:06 Notify Of Changes [facility] 03/26/25 In Process From Base 03:06 Graduate Assistant For [facility] 03/26/25 In Process 24 Hours 03:06 Emergency Dysrhythmia [facility] 03/26/25 In Process Protocol 03:06 Rhythm Strips Once [facility] 03/26/25 In Process Every Shift 03:06 Oxygen By Nasal RT 03/26/25 Transmitted Cannula 03:06 Consistent DIET 03/26/25 Transmitted Carb(Ccho)Diabetes Breakfast Ceftriaxone 1gm/50ml PHA 03/27/25 In Process (Rocephin) 09:00 Aspirin Tablet PHA 03/26/25 Transmitted 10:00 Atorvastatin (Lipitor) PHA 03/26/25 Transmitted 22:00 Thyroid Stimulating LAB 03/26/25 Transmitted Hormone 03:17 Levothyroxine Tablet PHA 03/26/25 Transmitted (Synthroid Tablet) 06:00 Metoprolol Tartrate PHA 03/26/25 Transmitted Tablet (Lopressor Ta 10:00 Problem List: (1) Hypoglycemia due to type 2 diabetes mellitus (2) Altered mental status (3) Anemia of chronic disease (4) Leukocytosis, unspecified (5) Generalized weakness (6) Acute on chronic renal failure Date of Service: Mar 26, 2025 Billing Provider: BARTOLO STEVEN DNP Common Visit Codes: [id number] INP/OBS CARE (HIGH) BARTOLO STEVEN DNP Mar 26, 2025 03:28
[2025-03-26 05:02] LABS: Hematocrit 27.6 % (36.0-46.0); Hemoglobin 9.4 g/dL (12.2-16.2); Mean Corpuscular Hemoglobin 30.4 pg (28.0-32.0); Mean Corpuscular Volume 88.9 fL (80.0-100.0); Nucleated Red Blood Cells % 0.1 %
[2025-03-26 05:04] LABS: Alanine Aminotransferase 24 U/L (7-40); Albumin 3.5 g/dL (3.2-4.8); Alkaline Phosphatase 65 U/L (46-116); Anion Gap 10 (5-15); BUN/Creatinine Ratio 6.9 (10.0-20.0); Blood Urea Nitrogen 19 mg/dL (9-23); Potassium 4.2 mmol/L (3.5-5.1); Sodium 139 mmol/L (136-145); Total Protein 5.9 g/dL (5.7-8.2)
[2025-03-26 05:05] LABS: Bilirubin, Total 0.3 mg/dL (0.2-1.0)
[2025-03-26 05:20] LABS: Calcium 8.3 mg/dL (8.7-10.4); Carbon Dioxide 18 mmol/L (20-31); Chloride 111 mmol/L (98-107); Glucose 61 mg/dL (74-106)
[2025-03-26] MEDS: SODIUM CHLOR 0.9% PF (SALINE LOCK) 10ML VIAL/SYR IV SCH (05:43)
[2025-03-26] MEDS: LEVOTHYROXINE SODIUM 100 MCG TAB PO SCH (05:43)
[2025-03-26] MEDS: ACCU-CHEK COMFORT CURVE STRIP VI SCH (06:17)
[2025-03-26] MEDS: InsuLIN REG 1unit/0.01ml Soln (100units/ml) SC SCH (06:19)
[2025-03-26] MEDS: METOPROLOL TARTRATE 50 MG TAB PO SCH (09:16)
[2025-03-26] MEDS: hydrALAZINE HCL 20 MG/ML VL IV PRN (12:06)
--- NOTE | 2025-03-26 14:06 | ECG ---
[facility] Test Date: 2025-03-25 Test Time: 22:11:24 Pat Name: ELI ALCAZAR Department: [facility] ED Patient ID: [facility]-[id number] Room: 0238T Gender: F Glass Silverer: lazarus : 1945 Requested By: NIKKY ORTEZ Order Number: [id number] Reading MD: Ken Georges Measurements Intervals [place] Rate: 68 P: 68 ID: [id number] QRS: 54 QRSD: 101 T: 87 QT: 455 QTc: 484 Interpretive Statements Sinus rhythm Short ID interval Repol abnrm suggests ischemia, lateral leads Minimal ST elevation, inferior leads Artifact in lead(s) I,II,III,aVR,aVL,aVF,V1,V2,V5,V6 Electronically Signed On 03-28-2025 13:32:09 PST by Ken Georges Please click the below link to view image of tracing.
--- NOTE | 2025-03-26 18:13 | DVHPN2 ---
Subjective Seen in bed Reviewed: H&P Changes from previous H/P or p: No Changes Eyes: No Pain, No Vision change, No Conjunctivae inflammation, No Eyelid inflammation, No Other, No Redness ENT: No Ear pain, No Ear discharge, No Nose pain, No Nose discharge, No Nose congestion, No Mouth pain, No Mouth swelling, No Throat pain, No Throat swelling, No Other Cardiovascular: No Chest Pain, No Palpitations, No Orthopnea, No Paroxysmal Noc. Dyspnea, No Edema, No Lt Headedness, No Other Respiratory: No Cough, No Dry, No Shortness of breath, No SOB with excertion, No Wheezing, No Hemoptysis, No Pleuritic Pain, No Sputum, No Other Gastrointestinal: No Nausea, No Vomiting, No Abdominal Pain, No Diarrhea, No Constipation, No Melena, No Hematochezia, No Other Genitourinary: No Dysuria, No Frequency, No Incontinence, No Hematuria, No Retention, No Other Musculoskeletal: No other, No neck pain, No shoulder pain, No arm pain, No back pain, No hand pain, No leg pain, No foot pain Skin: No Rash, No Lesions, No Jaundice, No Bruising, No Other Objective Vitals Vital Signs Date Time Temp Pulse Resp B/P (MAP) Pulse Ox O2 Delivery O2 Flow Rate FiO2 03/26/25 17:00 98.4 78 16 176/61 (99) 95 98.4 03/26/25 08:00 Room Air* 0 21 General Appearance: Alert, Oriented X3 HEENT: Atraumatic Cardiovascular: Regular rate, Normal S1, Normal S2 Abdomen: Normal bowel sounds Medications Current Medications Medications Dose Ordered Sig/Erlinda Route Start Time Stop Time Status Last Admin Dose Admin Ceftriaxone Sodium 50 ml @ 100 mls/hr DAILY@09 IV 03/26/25 09:00 UNV Hydralazine HCl 10 mg Q6HP PRN IV 03/26/25 03:15 03/26/25 12:06 10 MG Diagnostic Test (Pha) 1 strip ACHS 03/26/25 07:00 03/26/25 16:36 1 STRIP Insulin Human Regular ACHS SC 03/26/25 07:00 Dextrose 50 ml UD PRN IV 03/26/25 03:15 Sodium Chloride 10 ml Q8HR IV 03/26/25 06:00 03/26/25 11:17 10 ML Acetaminophen/ Hydrocodone Bitart 1 tab Q4HP PRN PO 03/26/25 03:15 Ondansetron HCl 4 mg Q4HP PRN IV 03/26/25 03:15 Docusate Sodium 100 mg BIDPRN PRN PO 03/26/25 03:15 Acetaminophen 650 mg Q6HP PRN PO 03/26/25 03:15 Nitroglycerin 0.4 mg Q5MINP PRN SL 03/26/25 03:15 Morphine Sulfate 2 mg Q30M PRN IV 03/26/25 03:15 Ceftriaxone Sodium 50 ml @ 100 mls/hr DAILY@09 IV 03/27/25 09:00 Aspirin 81 mg DAILY PO 03/26/25 10:00 03/26/25 09:16 81 MG Atorvastatin Calcium 20 mg HS PO 03/26/25 22:00 Levothyroxine Sodium 100 mcg QAM@0600 PO 03/26/25 06:00 03/26/25 05:43 100 MCG Metoprolol Tartrate 25 mg BID PO 03/26/25 10:00 03/26/25 09:16 25 MG Amlodipine Besylate 5 mg DAILY PO 03/27/25 10:00 Laboratory Results Laboratory Tests 03/26/25 03:55 Chemistry Test 03/26/25 01:05 03/26/25 03:55 Albumin 4.2 g/dL (3.2-4.8) 3.5 g/dL (3.2-4.8) Calcium Level 9.0 mg/dL (8.7-10.4) 8.3 mg/dL (8.7-10.4) L Magnesium Level 2.2 mg/dL (1.6-2.6) Total Protein 6.8 g/dL (5.7-8.2) 5.9 g/dL (5.7-8.2) LFT Test 03/26/25 01:05 03/26/25 03:55 Alanine Aminotransferase (ALT) 27 U/L (7-40) 24 U/L (7-40) Alkaline Phosphatase 78 U/L (46-116) 65 U/L (46-116) Aspartate Amino Transferase (AST) 27 U/L (13-40) 22 U/L (13-40) Total Bilirubin 0.3 mg/dL (0.2-1.0) 0.3 mg/dL (0.2-1.0) HgA1c, TSH Test 03/26/25 03:55 Thyroid Stimulating Hormone (TSH) 4.37 uIU/mL (0.55-4.78) Urinalysis Test 03/26/25 01:23 Urine Color Yellow (Yellow) Urine Clarity Clear (Clear) Urine pH 6.5 (5.0-9.0) Urine Specific [place] 1.017 (1.001-1.035) Urine Protein 3+ (Negative) H Urine Ketones Negative (Negative) Urine Blood Negative /uL (Negative) Urine Nitrite Negative (Negative) Urine Bilirubin Negative (Negative) Urine Urobilinogen Normal mg/dL (Negative) Urine Leukocyte Esterase Negative /uL (Negative) Urine RBC None seen /hpf (0 - 4) Urine Microscopic WBC 2 /HPF (0-5) Urine Squamous Epithelial Cells Few /hpf (<5) Urine Bacteria None seen /hpf (None Seen) Urine Glucose Normal mg/dL (Normal) Assessment/Plan Assessment/Plan Hypoglycemia due to type 2 diabetes mellitus Altered mental status Anemia of chronic disease Leukocytosis, unspecified Generalized weakness Acute on chronic renal failure Monitor her hypoglycemia IV ceftriaxone Dispo: DC tomorrow if sugars are better Plan discussed with: Patient My Orders Orders - ELIZABETH NEIL MD Procedure Category Date Status Time Amlodipine Tablet PHA 03/27/25 In Process (Norvasc Tablet) 10:00 Date of Service: Apr 03, 2025 Billing Provider: ELIZABETH NEIL MD Common Visit Codes: [id number] INP/OBS CARE(HIGH) ELIZABETH NEIL MD Mar 26, 2025 18:13
[2025-03-26] MEDS: HYDROcodone-ACET 5/325MG TAB PO PRN (20:18)
[2025-03-26] MEDS: ATORVASTATIN 20 MG TAB PO SCH (20:53)
[2025-03-27] VITALS (10 sets, daily range): BP systolic 144–184; BP diastolic 68–90; PULSE 61–77; RESP 16–18; TEMP 97.2–98.1; O2SAT 95–98
[2025-03-27 07:28] LABS: Hematocrit 32.7 % (36.0-46.0); Hemoglobin 10.7 g/dL (12.2-16.2); Mean Corpuscular Hemoglobin 30.2 pg (28.0-32.0); Mean Corpuscular Volume 91.9 fL (80.0-100.0)
[2025-03-27 07:50] LABS: Alanine Aminotransferase 25 U/L (7-40); Alkaline Phosphatase 74 U/L (46-116); Anion Gap 11 (5-15); BUN/Creatinine Ratio 7.9 (10.0-20.0); Blood Urea Nitrogen 22 mg/dL (9-23); Calcium 8.8 mg/dL (8.7-10.4); Sodium 136 mmol/L (136-145); Total Protein 6.5 g/dL (5.7-8.2)
[2025-03-27 07:51] LABS: Albumin 3.9 g/dL (3.2-4.8); Bilirubin, Total 0.4 mg/dL (0.2-1.0); Carbon Dioxide 17 mmol/L (20-31); Chloride 108 mmol/L (98-107); Glucose 136 mg/dL (74-106); Potassium 5.3 mmol/L (3.5-5.1)
[2025-03-27 08:41] LABS: Total Cells Counted 100.0 (100)
[2025-03-27 08:42] LABS: Anisocytosis Slight
--- NOTE | 2025-03-27 08:43 | DVHINCON2 ---
Date of service: Mar 27, [address] Farmer Reason for Consultation Elevated creatinine History of Present Illness This is a 79-year-old female with history of chronic kidney disease stage IV, type 2 diabetes, hypertension, hyperlipidemia, COPD, hypothyroidism brought into the emergency room because of altered mental status. As per the history obtained patient was noted to have a blood sugar of 37. History is mainly obtained from the medical records as the patient is a poor historian. Patient does have history of chronic kidney disease. Denies any urinary complaints. Blood sugars currently have been stable. Past Medical History Chronic kidney disease stage IV Type 2 diabetes Hypertension Hyperlipidemia Hypothyroidism Past Surgical History Denies Family History: Cancer G8 FATHER, FH: MO (myocardial infarction) G8 MOTHER, , Cause: MO (myocardial infarction) Family history: Cardiovascular disease G8 MOTHER, , Cause: MO (myocardial infarction) Family history: Diabetes mellitus G8 MOTHER, , Cause: MO (myocardial infarction) Social History Ex-smoker. Allergies: Coded Allergies: Cortisone (Verified Allergy, Unknown, 11/10/17) Iodine (Verified Allergy, Unknown, 11/10/17) Shellfish Allergy (Verified Allergy, Unknown, 11/10/17) Uncoded Allergies: strawberries (Allergy, Unknown, 11/10/17) Home Meds Active Scripts Azithromycin (Azithromycin) 500 Mg Tab, 1 TAB PO DAILY, #7 TAB Prov:PAWEL SHAH MD 03/17/25 Azithromycin (Azithromycin) 250 Mg Tab, 250 MG PO DAILY MDD 500 for 5 Days, #6 TAB 0 Refills 2 TABLETS ORALLY ON DAY ONE, THEN 1 TABLET ORALLY DAILY FOR 4 DAYS Prov:TAMRA LANDIS 12/03/23 Meclizine HCl (Meclizine) 25 Mg Chw, 25 MG PO DAILY for 7 Days, #7 CHW Prov:ANGELIQUE BARNARD MD 10/01/21 Zinc Sulfate (Zinc Sulfate) 220 Mg Tab, 220 MG PO DAILY for 30 Days, #30 TAB Prov:CHAVEZ GRANADOS MD 05/17/21 Cholecalciferol (Vitamin D3 Super Strength) 2,000 Unit Cap, 4000 UNIT PO DAILY for 30 Days, #60 CAP Prov:CHAVEZ GRANADOS MD 05/17/21 Ascorbic Acid (Gnp Vitamin C W/Yoselyn Hips) 1,000 Mg Tab, 1000 MG PO DAILY for 10 Days, #10 TAB Prov:CHAVEZ GRANADOS MD 05/17/21 Albuterol Sulfate (VENTOLIN MDI) 90 Mcg Ih, 180 MCG IN TIDPRN PRN, #1 INH Prov:CHAVEZ GRANADOS MD 05/17/21 Reported Medications Metoprolol Tartrate (LOPRESSOR TABLET) 50 Mg Tb, 1 TAB PO BIDWM 05/14/21 Atorvastatin Calcium (ATORVASTATIN CALCIUM) 20 Mg Tab, 1 TAB PO DAILY 05/14/21 Alendronate Sodium (Alendronate Sodium) 70 Mg Tab, 1 TAB PO QWEEKLY 05/14/21 Gabapentin (Gabapentin) 600 Mg Tab, 1 TAB PO BID 05/14/21 Hydralazine Hcl (Hydralazine Hcl) 50 Mg Tab, 1 TAB PO TID WITH FOOD 05/14/21 Psyllium (Metamucil) Unknown Strength Cap, PO PRN 05/14/21 Multiple Vitamin (Multivitamins) Cap, 1 CAP PO DAILY WOMEN 50+ 01/12/18 Clopidogrel Bisulfate (CLOPIDOGREL) 75 Mg Tab, 75 MG PO DAILY 11/18/17 Aspirin (Aspirin Low Dose) 81 Mg Tab, 81 MG PO DAILY 11/18/17 Glipizide (Glipizide) 5 Mg Tab, 5 MG PO BID 08/01/15 Levothyroxine Sodium (SYNTHROID TABLET) 100 Mcg Tb, 100 MG PO QAM 06/03/13 Metformin Hydrochloride (Metformin Hcl) 500 Mg Tab, 500 MG PO BID, TAB 06/03/13 Current Medications Current Medications Medications (Trade) Dose Ordered Sig/Erlinda Route PRN Reason Start Time Stop Time Status Last Admin Ceftriaxone Sodium 50 ml @ 100 mls/hr DAILY@ IV 03/26/25 09:00 UNV Ceftriaxone Sodium 50 ml @ 100 mls/hr DAILY@ IV 03/27/25 09:00 Aspirin 81 mg DAILY PO 03/26/25 10:00 03/27/25 08:16 Atorvastatin Calcium (Lipitor) 20 mg HS PO 03/26/25 22:00 03/26/25 20:53 Metoprolol Tartrate (Lopressor Tablet) 25 mg BID PO 03/26/25 10:00 03/27/25 08:16 Amlodipine Besylate (Norvasc Tablet) 5 mg DAILY PO 03/27/25 10:00 03/27/25 08:15 Review of Systems Twelve point review of system negative except as stated in HPI Vital Signs Vital Signs Date Time Temp Pulse Resp B/P (MAP) Pulse Ox O2 Delivery O2 Flow Rate FiO2 03/27/25 08:16 68 162/76 03/27/25 07:43 16 Room Air* 0 21 03/27/25 05:00 97.2 96 97.2 Physical Exam Awake alert oriented x3 HEENT: Normocephalic, no JVD Lungs: Bilateral good air entry CVS: S1, S2 regular rate rhythm. Systolic murmur present. Abdomen: Soft, bowel sounds present ECOLOGICAL RISK ASSESSOR: No focal deficits Extremities: No edema Labs/Diagnostic Data Labs Test 03/27/25 06:40 03/27/25 05:48 03/26/25 03:55 03/26/25 01:23 Range/Units White Blood Count 15.8 #H 4.4-10.8 10^3/uL Red Blood Count 3.56 L 4.0-5.20 10^6/uL Hemoglobin 10.7 L 12.2-16.2 g/dL Hematocrit 32.7 #L 36.0-46.0 % Mean Corpuscular Volume 91.9 80.0-100.0 fL Mean Corpuscular Hemoglobin 30.2 28.0-32.0 pg Mean Corpuscular Hemoglobin Concent 32.8 32.0-36.0 g/dL Red Cell Distribution Width 17.7 H 11.8-14.3 % Platelet Count 299 140-450 10^3/uL Mean Platelet Volume 7.0 6.9-10.8 fL Neutrophils (%) (Auto) 37.0-80.0 % Lymphocytes (%) (Auto) 10.0-50.0 % Monocytes (%) (Auto) 0.0-12.0 % Basophils (%) (Auto) 0.0-2.0 % Neutrophils # (Auto) 1.6-8.6 10 ^3/uL Lymphocytes # (Auto) 0.4-5.4 10 ^3/uL Monocytes # (Auto) 0-1.3 10 ^3/uL Differential Total Cells Counted 100.0 100 Neutrophils % (Manual) 43 37.0-80.0 Band Neutrophils % (Manual) 0 Lymphocytes % (Manual) 50 10.0-50.0 Monocytes % (Manual) 5 0-12 Eosinophils % (Manual) 2 0-7 Basophils % (Manual) 0 0.0-2.0 Metamyelocytes % (manual) 0 Myelocytes % (Manual) 0 Promyelocytes % (Manual) 0 Blast Cells % (Manual) 0 Reactive Lymphocytes 0 Platelet Estimate Adequate Anisocytosis (manual) Slight Schistocytes Few Sodium Level 136 136-145 mmol/L Potassium Level 5.3 H 3.5-5.1 mmol/L Chloride Level 108 H 98-107 mmol/L Carbon Dioxide Level 17 L 20-31 mmol/L Anion Gap 11 5-15 Blood Urea Nitrogen 22 9-23 mg/dL Creatinine 2.78 H 0.550-1.02 mg/dL Glomerular Filtration Rate Calc 17 >90 mL/min BUN/Creatinine Ratio 7.9 L 10.0-20.0 Serum Glucose 136 H 74-106 mg/dL Calcium Level 8.8 8.7-10.4 mg/dL Total Bilirubin 0.4 0.2-1.0 mg/dL Aspartate Amino Transferase (AST) 24 13-40 U/L Alanine Aminotransferase (ALT) 25 7-40 U/L Alkaline Phosphatase 74 46-116 U/L Total Protein 6.5 5.7-8.2 g/dL Albumin 3.9 3.2-4.8 g/dL POC Glucose 156 H 70-106 mg/dl Eosinophils (%) (Auto) 1.1 0.0-7.0 % Eosinophils # (Auto) 0.1 0-0.8 10 ^3/uL Basophils # (Auto) 0.1 0-0.2 10 ^3/uL Nucleated Red Blood Cells 0.1 % Thyroid Stimulating Hormone (TSH) 4.37 0.55-4.78 uIU/mL Urine Color Yellow Yellow Urine Clarity Clear Clear Urine pH 6.5 5.0-9.0 Urine Specific [place] 1.017 1.001-1.035 Urine Protein 3+ H Negative Urine Ketones Negative Negative Urine Blood Negative Negative /uL Urine Nitrite Negative Negative Urine Bilirubin Negative Negative Urine Urobilinogen Normal Negative mg/dL Urine Leukocyte Esterase Negative Negative /uL Urine RBC None seen 0 - 4 /hpf Urine Microscopic WBC 2 0-5 /HPF Urine Squamous Epithelial Cells Few <5 /hpf Urine Bacteria None seen None Seen /hpf Urine Glucose Normal Normal mg/dL Test 03/26/25 01:05 Range/Units Lactic Acid Level 0.7 0.4-2.0 mmol/L Magnesium Level 2.2 1.6-2.6 mg/dL Microbiology Date/Time Source Procedure Growth Status 03/26/25 01:05 Blood Blood Culture - Preliminary NO GROWTH AFTER 24 HOURS OF INCUBATION. Resulted Assessment Chronic kidney disease stage 4 secondary to diabetic nephropathy Poorly controlled blood sugars Metabolic encephalopathy secondary to hypoglycemia Hyperkalemia Chronic metabolic acidosis Hypertension Hyperlipidemia COPD Proteinuria Plan/Recommendation Review of her medical records shows that her baseline creatinine has been averaging between 2.5-3 for the past few years. Patient is not interested in renal replacement therapy. Close monitoring of blood sugars. Lokelma 10 g p.o. x1. Start sodium bicarbonate 650 mg p.o. b.i.d. Daily BMP Plan discussed with: Patient FRANSISCO GUPTA MD Mar 27, 2025 08:43
[2025-03-27] MEDS ORDERED: SODIUM CHL 0.9% 1000 ML BAG XX ONE (09:15)
[2025-03-27] MEDS: SODIUM ZIRCONIUM CYCL 10 GM PAK PO ONE (09:32)
[2025-03-27] MEDS: SODIUM BICARBONATE 650 MG TAB PO SCH (10:52)
--- NOTE | 2025-03-27 12:45 | DVHPN2 ---
Subjective Seen in bed Reviewed: H&P Changes from previous H/P or p: No Changes Eyes: No Pain, No Vision change, No Conjunctivae inflammation, No Eyelid inflammation, No Other, No Redness ENT: No Ear pain, No Ear discharge, No Nose pain, No Nose discharge, No Nose congestion, No Mouth pain, No Mouth swelling, No Throat pain, No Throat swelling, No Other Cardiovascular: No Chest Pain, No Palpitations, No Orthopnea, No Paroxysmal Noc. Dyspnea, No Edema, No Lt Headedness, No Other Respiratory: No Cough, No Dry, No Shortness of breath, No SOB with excertion, No Wheezing, No Hemoptysis, No Pleuritic Pain, No Sputum, No Other Gastrointestinal: No Nausea, No Vomiting, No Abdominal Pain, No Diarrhea, No Constipation, No Melena, No Hematochezia, No Other Genitourinary: No Dysuria, No Frequency, No Incontinence, No Hematuria, No Retention, No Other Musculoskeletal: No other, No neck pain, No shoulder pain, No arm pain, No back pain, No hand pain, No leg pain, No foot pain Skin: No Rash, No Lesions, No Jaundice, No Bruising, No Other Objective Vitals Vital Signs Date Time Temp Pulse Resp B/P (MAP) Pulse Ox O2 Delivery O2 Flow Rate FiO2 03/27/25 10:52 179/65 03/27/25 09:16 68 03/27/25 09:00 97.8 16 98 97.8 03/27/25 07:43 Room Air* 0 21 Intake/Output Intake and Output 03/27/25 07:00 Intake Total 1030 ml Balance 1030 ml Intake Oral 1030 ml # Voids 4 # Bowel Movements 1 General Appearance: Alert, Oriented X3 HEENT: Atraumatic Cardiovascular: Regular rate, Normal S1, Normal S2 Abdomen: Normal bowel sounds Medications Current Medications Medications Dose Ordered Sig/Erlinda Route Start Time Stop Time Status Last Admin Dose Admin Ceftriaxone Sodium 50 ml @ 100 mls/hr DAILY@09 IV 03/26/25 09:00 UNV Hydralazine HCl 10 mg Q6HP PRN IV 03/26/25 03:15 03/27/25 10:52 10 MG Diagnostic Test (Pha) 1 strip ACHS 03/26/25 07:00 03/27/25 11:50 1 STRIP Insulin Human Regular ACHS SC 03/26/25 07:00 03/27/25 05:58 2 UNITS Dextrose 50 ml UD PRN IV 03/26/25 03:15 Sodium Chloride 10 ml Q8HR IV 03/26/25 06:00 03/27/25 10:00 10 ML Acetaminophen/ Hydrocodone Bitart 1 tab Q4HP PRN PO 03/26/25 03:15 03/26/25 20:18 1 TAB Ondansetron HCl 4 mg Q4HP PRN IV 03/26/25 03:15 Docusate Sodium 100 mg BIDPRN PRN PO 03/26/25 03:15 Acetaminophen 650 mg Q6HP PRN PO 03/26/25 03:15 Nitroglycerin 0.4 mg Q5MINP PRN SL 03/26/25 03:15 Morphine Sulfate 2 mg Q30M PRN IV 03/26/25 03:15 Ceftriaxone Sodium 50 ml @ 100 mls/hr DAILY@09 IV 03/27/25 09:00 03/27/25 09:33 100 MLS/HR Aspirin 81 mg DAILY PO 03/26/25 10:00 03/27/25 08:16 81 MG Atorvastatin Calcium 20 mg HS PO 03/26/25 22:00 03/26/25 20:53 20 MG Levothyroxine Sodium 100 mcg QAM@0600 PO 03/26/25 06:00 03/27/25 05:13 100 MCG Metoprolol Tartrate 25 mg BID PO 03/26/25 10:00 03/27/25 08:16 25 MG Amlodipine Besylate 5 mg DAILY PO 03/27/25 10:00 03/27/25 08:15 5 MG Sodium Bicarbonate 650 mg BID PO 03/27/25 10:00 03/27/25 10:52 650 MG Laboratory Results Laboratory Tests 03/27/25 06:40 Chemistry Test 03/27/25 06:40 Albumin 3.9 g/dL (3.2-4.8) Calcium Level 8.8 mg/dL (8.7-10.4) Total Protein 6.5 g/dL (5.7-8.2) LFT Test 03/27/25 06:40 Alanine Aminotransferase (ALT) 25 U/L (7-40) Alkaline Phosphatase 74 U/L (46-116) Aspartate Amino Transferase (AST) 24 U/L (13-40) Total Bilirubin 0.4 mg/dL (0.2-1.0) Urinalysis Test 03/26/25 01:23 Urine Color Yellow (Yellow) Urine Clarity Clear (Clear) Urine pH 6.5 (5.0-9.0) Urine Specific [place] 1.017 (1.001-1.035) Urine Protein 3+ (Negative) H Urine Ketones Negative (Negative) Urine Blood Negative /uL (Negative) Urine Nitrite Negative (Negative) Urine Bilirubin Negative (Negative) Urine Urobilinogen Normal mg/dL (Negative) Urine Leukocyte Esterase Negative /uL (Negative) Urine RBC None seen /hpf (0 - 4) Urine Microscopic WBC 2 /HPF (0-5) Urine Squamous Epithelial Cells Few /hpf (<5) Urine Bacteria None seen /hpf (None Seen) Urine Glucose Normal mg/dL (Normal) Microbiology Microbiology Date/Time Source Procedure Growth Status 03/26/25 01:05 Blood Blood Culture - Preliminary NO GROWTH AFTER 24 HOURS OF INCUBATION. Resulted Assessment/Plan Assessment/Plan Hypoglycemia due to type 2 diabetes mellitus Altered mental status Anemia of chronic disease Leukocytosis, unspecified Generalized weakness Acute on chronic renal failure Monitor her hypoglycemia IV ceftriaxone Sodium bicarb for hyperkalemia Nephrology on consult Dispo: DC tomorrow if sugars are better Plan discussed with: Patient My Orders Orders - ELIZABETH NEIL MD Procedure Category Date Status Time Amlodipine Tablet PHA 03/27/25 In Process (Norvasc Tablet) 10:00 Date of Service: Mar 27, 2025 Billing Provider: ELIZABETH NEIL MD Common Visit Codes: [id number] INP/OBS CARE(HIGH) ELIZABETH NEIL MD Mar 27, 2025 12:45
--- NOTE | 2025-03-27 15:26 | MEDREC ---
[facility] Intervention Section I [facility] Intervention: Review ghassan of ABX 48h AIO (PLEASE CONSIDER D/C ANTIBIOTIC IN ABSENCE OF BACTERIAL INFECTION) CASPER SMITH PHARMACIST Mar 27, 2025 15:25
[2025-03-27] MEDS: MUPIROCIN 2% OINT 15gm or 22gm FOR MRSA NARES EACHNOSTRI SCH (21:47)
[2025-03-28] VITALS (8 sets, daily range): BP systolic 159–182; BP diastolic 74–84; PULSE 67–73; RESP 12–18; TEMP 97.7–98.4; O2SAT 95–98
[2025-03-28 11:41] LABS: Hematocrit 29.8 % (36.0-46.0); Hemoglobin 9.9 g/dL (12.2-16.2); Mean Corpuscular Hemoglobin 29.8 pg (28.0-32.0); Mean Corpuscular Volume 89.6 fL (80.0-100.0); Nucleated Red Blood Cells % 0.2 %
[2025-03-28 11:50] LABS: Chloride 105 mmol/L (98-107)
[2025-03-28 11:51] LABS: Anion Gap 8 (5-15); Carbon Dioxide 22 mmol/L (20-31)
[2025-03-28 11:55] LABS: Calcium 8.6 mg/dL (8.7-10.4); Potassium 5.5 mmol/L (3.5-5.1); Sodium 135 mmol/L (136-145)
[2025-03-28 11:56] LABS: BUN/Creatinine Ratio 11.7 (10.0-20.0); Blood Urea Nitrogen 30 mg/dL (9-23); Glucose 150 mg/dL (74-106)
--- NOTE | 2025-03-28 13:11 | DVHPN2 ---
Subjective Seen in bed Reviewed: H&P Changes from previous H/P or p: No Changes Eyes: No Pain, No Vision change, No Conjunctivae inflammation, No Eyelid inflammation, No Other, No Redness ENT: No Ear pain, No Ear discharge, No Nose pain, No Nose discharge, No Nose congestion, No Mouth pain, No Mouth swelling, No Throat pain, No Throat swelling, No Other Cardiovascular: No Chest Pain, No Palpitations, No Orthopnea, No Paroxysmal Noc. Dyspnea, No Edema, No Lt Headedness, No Other Respiratory: No Cough, No Dry, No Shortness of breath, No SOB with excertion, No Wheezing, No Hemoptysis, No Pleuritic Pain, No Sputum, No Other Gastrointestinal: No Nausea, No Vomiting, No Abdominal Pain, No Diarrhea, No Constipation, No Melena, No Hematochezia, No Other Genitourinary: No Dysuria, No Frequency, No Incontinence, No Hematuria, No Retention, No Other Musculoskeletal: No other, No neck pain, No shoulder pain, No arm pain, No back pain, No hand pain, No leg pain, No foot pain Skin: No Rash, No Lesions, No Jaundice, No Bruising, No Other Objective Vitals Vital Signs Date Time Temp Pulse Resp B/P (MAP) Pulse Ox O2 Delivery O2 Flow Rate FiO2 03/28/25 12:43 98.3 69 16 165/81 (109) 97 98.3 03/28/25 08:00 Room Air* 0 21 Intake/Output Intake and Output 03/28/25 07:00 Intake Total 1450 ml Balance 1450 ml Intake Oral 1400 ml IV Total 50 ml # Voids 4 General Appearance: Alert, Oriented X3 HEENT: Atraumatic Cardiovascular: Regular rate, Normal S1, Normal S2 Abdomen: Normal bowel sounds Medications Current Medications Medications Dose Ordered Sig/Erlinda Route Start Time Stop Time Status Last Admin Dose Admin Ceftriaxone Sodium 50 ml @ 100 mls/hr DAILY@09 IV 03/26/25 09:00 UNV Hydralazine HCl 10 mg Q6HP PRN IV 03/26/25 03:15 03/28/25 01:08 10 MG Diagnostic Test (Pha) 1 strip ACHS 03/26/25 07:00 03/28/25 11:17 1 STRIP Insulin Human Regular ACHS SC 03/26/25 07:00 03/28/25 11:18 2 UNITS Dextrose 50 ml UD PRN IV 03/26/25 03:15 Sodium Chloride 10 ml Q8HR IV 03/26/25 06:00 03/28/25 06:16 10 ML Acetaminophen/ Hydrocodone Bitart 1 tab Q4HP PRN PO 03/26/25 03:15 03/26/25 20:18 1 TAB Ondansetron HCl 4 mg Q4HP PRN IV 03/26/25 03:15 Docusate Sodium 100 mg BIDPRN PRN PO 03/26/25 03:15 Acetaminophen 650 mg Q6HP PRN PO 03/26/25 03:15 Nitroglycerin 0.4 mg Q5MINP PRN SL 03/26/25 03:15 Morphine Sulfate 2 mg Q30M PRN IV 03/26/25 03:15 Ceftriaxone Sodium 50 ml @ 100 mls/hr DAILY@09 IV 03/27/25 09:00 03/28/25 09:12 100 MLS/HR Aspirin 81 mg DAILY PO 03/26/25 10:00 03/28/25 09:12 81 MG Atorvastatin Calcium 20 mg HS PO 03/26/25 22:00 03/27/25 21:45 20 MG Levothyroxine Sodium 100 mcg QAM@0600 PO 03/26/25 06:00 03/28/25 06:10 100 MCG Metoprolol Tartrate 25 mg BID PO 03/26/25 10:00 03/28/25 09:13 25 MG Amlodipine Besylate 5 mg DAILY PO 03/27/25 10:00 03/28/25 09:12 5 MG Sodium Bicarbonate 650 mg BID PO 03/27/25 10:00 03/28/25 09:12 650 MG Mupirocin 1 applic BID EACHNOSTRI 03/27/25 22:00 04/01/25 21:59 03/28/25 09:18 1 APPLIC Laboratory Results Laboratory Tests 03/28/25 11:19 Chemistry Test 03/28/25 11:19 Calcium Level 8.6 mg/dL (8.7-10.4) L Urinalysis Test 03/26/25 01:23 Urine Color Yellow (Yellow) Urine Clarity Clear (Clear) Urine pH 6.5 (5.0-9.0) Urine Specific [place] 1.017 (1.001-1.035) Urine Protein 3+ (Negative) H Urine Ketones Negative (Negative) Urine Blood Negative /uL (Negative) Urine Nitrite Negative (Negative) Urine Bilirubin Negative (Negative) Urine Urobilinogen Normal mg/dL (Negative) Urine Leukocyte Esterase Negative /uL (Negative) Urine RBC None seen /hpf (0 - 4) Urine Microscopic WBC 2 /HPF (0-5) Urine Squamous Epithelial Cells Few /hpf (<5) Urine Bacteria None seen /hpf (None Seen) Urine Glucose Normal mg/dL (Normal) Microbiology Microbiology Date/Time Source Procedure Growth Status 03/27/25 07:15 Nose MRSA Screen - Final Methicillin Resistant S.aureus Complete 03/26/25 01:05 Blood Blood Culture - Preliminary NO GROWTH AFTER 48 HOURS OF INCUBATION. Resulted Assessment/Plan Assessment/Plan Hypoglycemia due to type 2 diabetes mellitus Altered mental status Anemia of chronic disease Leukocytosis, unspecified Generalized weakness Acute on chronic renal failure Monitor her hypoglycemia IV ceftriaxone Hyperkalemia worse 5.5 Will give zirconium Nephrology on consult Dispo: Need to improve K before discharge Plan discussed with: Patient My Orders Orders - ELIZABETH NEIL MD Procedure Category Date Status Time Mupirocin 2% Oint PHA 03/27/25 In Process Mrsa Nares (Bactroban 22:00 Date of Service: Mar 28, 2025 Billing Provider: ELIZABETH NEIL MD Common Visit Codes: [id number] INP/OBS CARE(HIGH) ELIZABETH NEIL MD Mar 28, 2025 13:11
[2025-03-28] MEDS: SODIUM ZIRCONIUM CYCL 10 GM PAK PO ONE (14:05)
[2025-03-29] VITALS (7 sets, daily range): BP systolic 150–176; BP diastolic 74–90; PULSE 66–71; RESP 14–16; TEMP 97–98; O2SAT 97–98
--- NOTE | 2025-03-29 11:17 | DVHPN2 ---
Progress Note - Dictate Date Seen: Mar 29, 2025 Medical Necessity Reason Pt with a Central, PICC or Fol: No Subjective No acute issues overnight vital signs Vital Sign Date Time Temp Pulse Resp B/P (MAP) Pulse Ox O2 Delivery O2 Flow Rate FiO2 03/29/25 10:31 185/62 03/29/25 09:40 69 03/29/25 09:00 98.0 16 98 98.0 03/28/25 20:00 Room Air* 0 21 Total Intake and Output 03/28/25 03/28/25 03/29/25 15:00 23:00 07:00 Intake Total 50 ml 1050 ml 300 ml Balance 50 ml 1050 ml 300 ml medications Current Medications Medications Dose Ordered Sig/Erlinda Route Start Time Stop Time Status Last Admin Dose Admin Ceftriaxone Sodium 50 ml @ 100 mls/hr DAILY@ IV 03/26/25 09:00 UNV Hydralazine HCl 10 mg Q6HP PRN IV 03/26/25 03:15 03/29/25 10:31 10 MG Diagnostic Test (Pha) 1 strip ACHS 03/26/25 07:00 03/29/25 06:01 1 STRIP Insulin Human Regular ACHS SC 03/26/25 07:00 03/29/25 06:01 2 UNITS Dextrose 50 ml UD PRN IV 03/26/25 03:15 Sodium Chloride 10 ml Q8HR IV 03/26/25 06:00 03/29/25 05:38 10 ML Acetaminophen/ Hydrocodone Bitart 1 tab Q4HP PRN PO 03/26/25 03:15 03/26/25 20:18 1 TAB Ondansetron HCl 4 mg Q4HP PRN IV 03/26/25 03:15 Docusate Sodium 100 mg BIDPRN PRN PO 03/26/25 03:15 Acetaminophen 650 mg Q6HP PRN PO 03/26/25 03:15 Nitroglycerin 0.4 mg Q5MINP PRN SL 03/26/25 03:15 Morphine Sulfate 2 mg Q30M PRN IV 03/26/25 03:15 Ceftriaxone Sodium 50 ml @ 100 mls/hr DAILY@09 IV 03/27/25 09:00 03/29/25 08:32 100 MLS/HR Aspirin 81 mg DAILY PO 03/26/25 10:00 03/29/25 08:40 81 MG Atorvastatin Calcium 20 mg HS PO 03/26/25 22:00 03/28/25 21:13 20 MG Levothyroxine Sodium 100 mcg QAM@0600 PO 03/26/25 06:00 03/29/25 06:02 100 MCG Metoprolol Tartrate 25 mg BID PO 03/26/25 10:00 03/29/25 08:40 25 MG Amlodipine Besylate 5 mg DAILY PO 03/27/25 10:00 03/29/25 08:39 5 MG Sodium Bicarbonate 650 mg BID PO 03/27/25 10:00 03/29/25 08:40 650 MG Mupirocin 1 applic BID EACHNOSTRI 03/27/25 22:00 04/01/25 21:59 03/28/25 21:13 1 APPLIC objective Awake alert oriented x3 HEENT: Normocephalic, no JVD Lungs: Bilateral good air entry CVS: S1, S2 regular rate rhythm. Systolic murmur present. 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 Outpatient follow up. Continue with sodium bicarbonate 650 mg p.o. b.i.d. Plan discussed with: FRANSISCO Cerda MD Mar 29, 2025 11:16
[2025-03-29 11:37] LABS: Anion Gap 10 (5-15); Carbon Dioxide 23 mmol/L (20-31); Chloride 105 mmol/L (98-107); Potassium 4.5 mmol/L (3.5-5.1); Sodium 138 mmol/L (136-145)
[2025-03-29 11:43] LABS: BUN/Creatinine Ratio 13.4 (10.0-20.0)
[2025-03-29 11:44] LABS: Blood Urea Nitrogen 34 mg/dL (9-23); Calcium 8.4 mg/dL (8.7-10.4); Glucose 152 mg/dL (74-106)
--- NOTE | 2025-03-29 12:14 | DVHDS2 ---
Discharge Summary Date of Admission Mar 26, 2025 at 03:06 Date of Discharge: Mar 29, 2025 Labs/Diagnostic Data: Laboratory Results Test 03/29/25 11:35 03/29/25 10:20 03/28/25 11:19 03/27/25 06:40 POC Glucose 146 mg/dl (70-106) Sodium Level 138 mmol/L (136-145) Potassium Level 4.5 mmol/L (3.5-5.1) Chloride Level 105 mmol/L (98-107) Carbon Dioxide Level 23 mmol/L (20-31) Anion Gap 10 (5-15) Blood Urea Nitrogen 34 mg/dL (9-23) Creatinine 2.54 mg/dL (0.550-1.02) Glomerular Filtration Rate Calc 18 mL/min (>90) BUN/Creatinine Ratio 13.4 (10.0-20.0) Serum Glucose 152 mg/dL (74-106) Calcium Level 8.4 mg/dL (8.7-10.4) White Blood Count 16.1 10^3/uL (4.4-10.8) Red Blood Count 3.32 10^6/uL (4.0-5.20) Hemoglobin 9.9 g/dL (12.2-16.2) Hematocrit 29.8 % (36.0-46.0) Mean Corpuscular Volume 89.6 fL (80.0-100.0) Mean Corpuscular Hemoglobin 29.8 pg (28.0-32.0) Mean Corpuscular Hemoglobin Concent 33.3 g/dL (32.0-36.0) Red Cell Distribution Width 16.9 % (11.8-14.3) Platelet Count 290 10^3/uL (140-450) Mean Platelet Volume 7.2 fL (6.9-10.8) Neutrophils (%) (Auto) 50.0 % (37.0-80.0) Lymphocytes (%) (Auto) 42.6 % (10.0-50.0) Monocytes (%) (Auto) 4.8 % (0.0-12.0) Eosinophils (%) (Auto) 1.8 % (0.0-7.0) Basophils (%) (Auto) 0.8 % (0.0-2.0) Neutrophils # (Auto) 8.0 10 ^3/uL (1.6-8.6) Lymphocytes # (Auto) 6.8 10 ^3/uL (0.4-5.4) Monocytes # (Auto) 0.8 10 ^3/uL (0-1.3) Eosinophils # (Auto) 0.3 10 ^3/uL (0-0.8) Basophils # (Auto) 0.1 10 ^3/uL (0-0.2) Nucleated Red Blood Cells 0.2 % Differential Total Cells Counted 100.0 (100) Neutrophils % (Manual) 43 (37.0-80.0) Band Neutrophils % (Manual) 0 Lymphocytes % (Manual) 50 (10.0-50.0) Monocytes % (Manual) 5 (0-12) Eosinophils % (Manual) 2 (0-7) Basophils % (Manual) 0 (0.0-2.0) Metamyelocytes % (manual) 0 Myelocytes % (Manual) 0 Promyelocytes % (Manual) 0 Blast Cells % (Manual) 0 Reactive Lymphocytes 0 Platelet Estimate Adequate Anisocytosis (manual) Slight Schistocytes Few Total Bilirubin 0.4 mg/dL (0.2-1.0) Aspartate Amino Transferase (AST) 24 U/L (13-40) Alanine Aminotransferase (ALT) 25 U/L (7-40) Alkaline Phosphatase 74 U/L (46-116) Total Protein 6.5 g/dL (5.7-8.2) Albumin 3.9 g/dL (3.2-4.8) Test 03/26/25 03:55 03/26/25 01:23 03/26/25 01:05 Thyroid Stimulating Hormone (TSH) 4.37 uIU/mL (0.55-4.78) Urine Color Yellow (Yellow) Urine Clarity Clear (Clear) Urine pH 6.5 (5.0-9.0) Urine Specific Wilmot 1.017 (1.001-1.035) Urine Protein 3+ (Negative) Urine Ketones Negative (Negative) Urine Blood Negative /uL (Negative) Urine Nitrite Negative (Negative) Urine Bilirubin Negative (Negative) Urine Urobilinogen Normal mg/dL (Negative) Urine Leukocyte Esterase Negative /uL (Negative) Urine RBC None seen /hpf (0 - 4) Urine Microscopic WBC 2 /HPF (0-5) Urine Squamous Epithelial Cells Few /hpf (<5) Urine Bacteria None seen /hpf (None Seen) Urine Glucose Normal mg/dL (Normal) Lactic Acid Level 0.7 mmol/L (0.4-2.0) Magnesium Level 2.2 mg/dL (1.6-2.6) Other Laboratory Tests 03/29/25 10:20 03/28/25 11:19 Brief Hx & Hospital Course: 79-year-old female with past medical history of COPD, hyperlipidemia, thyroid disease, hypertension, GERD, and diabetes mellitus who presented to [facility] ED for evaluation of altered mental status. As reported by EMS, patient was picked up at home when family member notice change in her mental status, acting altered, confused, poor appetite, generalized weakness, getting worse that prompted this visit. When EMS arrived on the scene, patient's blood glucose was 37 and was given D10 water and improved to 219, EN route to our facility ED. Patient was seen and evaluated in the ED, laboratory data shows WBC 15.3, hemoglobin 10.7, hematocrit 31.6, platelets 333, sodium 142, potassium 4.4, BUN 25, creatinine 2.76, glucose 41 trending up to 133, lactic acid 0.7, blood pressure 168/62, heart rate 68, temperature 98.1 F, O2 saturation 97% on room air. Please see medication orders section in the computer. On my assessment, patient remains altered, no diaphoresis, shortness of breaths, no diarrhea, nausea, vomiting, fever, no chills. Patient was admitted for further evaluation and medical management. Hypoglycemia resolved and then developed hyperkalemia that needed treatment and resolved Condition at Discharge: Good Final Diagnosis/Problems List Hypoglycemia SAJAN due to vasomotor nephropathy Hyperkalemia Discharge Disposition: Home Discharge Instruct/Medications Diet: Regular Activity: No Restrictions, As Tolerated Follow Up/Referral: PCP in 7 days Medications: same home medications Scheduled Alendronate Sodium (Alendronate Sodium), 1 TAB PO QWEEKLY, (Reported) Ascorbic Acid (Gnp Vitamin C W/Yoselyn Hips), 1,000 MG PO DAILY Aspirin (Aspirin Low Dose), 81 MG PO DAILY, (Reported) Atorvastatin Calcium (Atorvastatin Calcium), 1 TAB PO DAILY, (Reported) Azithromycin (Azithromycin), 250 MG PO DAILY Azithromycin (Azithromycin), 1 TAB PO DAILY Cholecalciferol (Vitamin D3 Super Strength), 4,000 UNIT PO DAILY Clopidogrel Bisulfate (Clopidogrel), 75 MG PO DAILY, (Reported) Gabapentin (Gabapentin), 1 TAB PO BID, (Reported) Glipizide (Glipizide), 5 MG PO BID, (Reported) Hydralazine Hcl (Hydralazine Hcl), 1 TAB PO TID WITH FOOD, (Reported) Levothyroxine Sodium (Synthroid Tablet), 100 MG PO QAM, (Reported) Meclizine HCl (Meclizine), 25 MG PO DAILY Metformin Hydrochloride (Metformin Hcl), 500 MG PO BID, (Reported) Metoprolol Tartrate (Lopressor Tablet), 1 TAB PO BIDWM, (Reported) Multiple Vitamin (Multivitamins), 1 CAP PO DAILY, (Reported) Psyllium (Metamucil), Unknown Dose PO PRN, (Reported) Zinc Sulfate (Zinc Sulfate), 220 MG PO DAILY Scheduled PRN Albuterol Sulfate (Ventolin Mdi), 180 MCG IN TIDPRN PRN Discharge Statement: "Patient was advised to return to the ER or call 911 if any headaches, dizziness, shortness of breath, chest pain, abdominal pain, bleeding, fevers, or worsening of medical condition. Patient was counseled about treatment plan, medications, possible side effects, patientverbalized understanding. All questions were answered to the best of my ability. This discharge took greater then 30 minutes in planning, reviewing documentation, counseling the patient, and discussing with other team members." ASSESSMENT ASSESSMENT Assessment Hypoglycemia SAJAN due to vasomotor nephropathy Hyperkalemia Date of Service: Mar 29, 2025 Billing Provider: ELIZABETH NEIL MD Common Visit Codes: 31753-VNF/OBS DISCH DAY >30min ELIZABETH NEIL MD Mar 29, 2025 12:14
== END 2025-03-29 16:00 | disposition home or self-care (01) | DRG 70 ==
LOC: EDBD 21:32 → ER 21:36 → OVERFLOW 03-26 03:06 → TELE-EAST 03-26 05:06
PROVIDERS: ADMIT Hospitalist; ATTEND Hospitalist
DX: G93.41 Metabolic encephalopathy (principal); N17.0 Acute kidney failure with tubular necrosis; E87.22 Chronic metabolic acidosis; N18.4 Chronic kidney disease, stage 4 (severe); N39.0 Urinary tract infection, site not specified; D63.8 Anemia in other chronic diseases classified elsewhere; E11.649 Type 2 diabetes mellitus with hypoglycemia without coma; I12.9 Hypertensive chronic kidney disease with stage 1 through stage 4 chronic kidney disease, or unspecified chronic kidney disease; J44.9 Chronic obstructive pulmonary disease, unspecified; E03.9 Hypothyroidism, unspecified; E87.5 Hyperkalemia; K21.9 Gastro-esophageal reflux disease without esophagitis; E78.5 Hyperlipidemia, unspecified; Z91.018 Allergy to other foods; Z91.013 Allergy to seafood; Z88.8 Allergy status to other drugs, medicaments and biological substances; Z87.891 Personal history of nicotine dependence; Z83.3 Family history of diabetes mellitus; Z82.49 Family history of ischemic heart disease and other diseases of the circulatory system; Z79.82 Long term (current) use of aspirin
CPT/HCPCS: 36415; 80048; 80053; 81001; 82962; 83605; 83735; 84443; 85007; 85025; 85027; 87040; 87081; 93005; 99291; G0378; J1815; J2543